=== PATIENT | female | born 1960 | race Caucasian/White ===

== ENCOUNTER 2017-08-31 11:54 | Observation (INO) | payer MEDICARE, MEDICAID ==
[~2017-08-31 11:54] MED LIST: ISOVUE-370 76%-LOCM 1 ML ONE
[2017-08-31 12:39] LABS: #Lymphocytes 1.8 thou/uL (1.20-3.40); #Monocytes 0.7 thou/uL (0.11-0.59); #Neutrophils 3.8 thou/uL (1.40-6.50); %Basophils 0.3 % (0.0-1.0); %Eosinophils 0.6 % (0.0-10.0); %Lymphocytes 28.3 % (21.0-51.0); %Monocytes 10.8 % (0.0-10.0); Hematocrit 43.2 % (36.0-47.0); Mean Platelet Volume 7.8 fL (7.4-10.4); Red Blood Cell (RBC) Count 4.66 mill/uL (4.20-5.40); White Blood Cell (WBC) Count 6.3 thou/uL (4.8-10.8)
[2017-08-31 12:51] LABS: Lactic Acid - Sepsis 3.6 mmol/L (0.5-2.2)
[2017-08-31 12:56] LABS: ALT (SGPT) 35 U/L (8-55); AST (SGOT) 34 U/L (5-34); Alkaline Phosphatase 189 U/L (40-150); Anion Gap 14 mmol/L (10-20); BUN (Urea Nitrogen) 20 mg/dL (9.8-20.1); Bilirubin, Total 0.4 mg/dL (0.2-1.2); Calc. Creatinine Clearance 0 mL/min (70-130); Calcium 10.3 mg/dL (7.8-10.44); Carbon Dioxide 23 mmol/L (22-29); Chloride 108 mmol/L (98-107); Estimated GFR-MDRD 41; Globulin 3.4 g/dL (2.4-3.5); Lipase 24 U/L (8-78); Protein, Total 7.8 g/dL (6.0-8.3)
[2017-08-31] MEDS ORDERED: diphenhydrAMINE HCl 50 MG/ML 1 ML VIAL ONE (13:17)
[2017-08-31] MEDS ORDERED: Metoclopramide HCl 10 MG/2 ML VIAL ONE (13:17)
[2017-08-31 13:49] LABS: Bilirubin Negative (Negative); Blood, Urine Negative (Negative); Glucose, Urine (Dipstick) Negative (Negative); Ketone, Urine Negative (Negative); Nitrite Negative (Negative); Protein, Urine (Dipstick) Negative (Neg-Trace); Urobilinogen 0.2 mg/dL (0.2-1.0)
[2017-08-31 13:51] LABS: Bacteria/HPF None Seen HPF (None Seen); Hyaline Casts/LPF 0-3 HYALINE CAST LPF (0-3 Hyaline); RBC/HPF 0-3 HPF (0-3); WBC/HPF 0-3 HPF (0-3)
[2017-08-31 13:56] LABS: Troponin I 0.016 ng/mL (< 0.028)
--- NOTE | 2017-08-31 14:18 | CT ---
CT ABDOMEN AND PELVIS WITH IV CONTRAST: History Abdomen pain. FINDINGS: The lung bases are clear. Small hiatal hernia is apparent. The gallbladder is surgically absent. The spleen, kidneys, adrenal glands, and pancreas are within normal limits. Prominent calcification s apparent throughout the arterial structures. Urinary bladder is decompressed. There are degenera tive changes throughout the lumbar spine. IMPRESSION: 1. No acute abnormalities are demonstrated to explain abdomen pain. 2. Hiatal hernia. 3. Status post cholecystectomy. 4. Atherosclerosis. POS: [facility]
--- NOTE | 2017-08-31 14:21 | RAD ---
CHEST 1 VIEW: History Dyspnea. COMPARISON: 04/23/17. FINDINGS: Cardiac silhouette and pulmonary vasculature are unremarkable. Mediastinum is midline. There is no confluent airspace consolidation or evidence of pneumothorax. Postoperative changes of the cervica l spine are evident. IMPRESSION: No active cardiopulmonary abnormalities are demonstrated. POS: [facility]
[2017-08-31] MEDS ORDERED: Promethazine HCl 12.5 MG in Sodium Chloride 0.9% 50 ML IVPB SCH (15:30)
[2017-08-31] MEDS ORDERED: Acetaminophen 325 MG TAB PO PRN (16:49)
[2017-08-31] MEDS ORDERED: Ondansetron HCl/PF 4 MG/2 ML Vial IVP PRN (16:49)
[2017-08-31] MEDS ORDERED: Ondansetron ODT 4 MG TAB SL PRN (16:49)
[2017-08-31 16:57] VITALS: BMI 51.0
[2017-08-31] MEDS: Sodium Chloride 0.9% 1,000 ML IV SCH ×2 (17:30→20:31)
--- NOTE | 2017-08-31 18:34 | HP ---
DATE OF ADMISSION: 08/31/2017 CHIEF COMPLAINT: Persistent nausea, vomiting, and diarrhea for 1 week. HISTORY OF PRESENT ILLNESS: The patient is a 57-year-old female with past medical history significa nt for hypertension, CAD, status post AK, hyperlipidemia, anxiety, depression, arthritis, and sleep apnea. Patient has been having symptoms for a week. She has been having nausea, vomiting, and diar mauro. The patient denies any blood in her stools or blood in her vomitus. She denies any fever. S he has been unable to keep anything down. Patient became very dehydrated and weak and decided to co me to the ER. The patient also has some right upper quadrant discomfort associated with this. She has already had a cholecystectomy. Patient denies any history of peptic ulcer disease, gastritis, o r colitis. She had an EGD and colonoscopy about 2 years ago, which was apparently normal as per leah fam, I do not have the records. PAST MEDICAL HISTORY: 1. Hypertension. 2. Coronary artery disease. 3. Status post myocardial infarction. 4. Hyperlipidemia. 5. Anxiety. 6. Depression. 7. Arthritis. 8. Sleep apnea. PAST SURGICAL HISTORY: Patient has had multiple knee surgeries, , cholecystectomy, appende ctomy, neck surgery, and hernia repair. HOME MEDICATIONS: List is reviewed. FAMILY HISTORY: Noncontributory to the present admission. SOCIAL HISTORY: The patient is . She lives alone. She smokes half a pack a day for the pa st 30 years. Denies alcohol or substance abuse. REVIEW OF SYSTEMS: Constitutional: No history of weight loss, weight gain, night sweats, or fever. HEENT: No visual disturbance, hearing problems, difficulty in chewing or swallowing. No headache . Gastrointestinal: As per history of present illness. No black stools or blood in stools. No hi story of colitis or diverticulitis. Cardiac: No chest pain, palpitations, syncope, or edema. Resp iratory: No cough, wheezing, asthma, or hemoptysis. Genitourinary: No dysuria, burning, frequency , hematuria, or flank pain. Neurological: No dizziness, visual disturbance, speech disturbances, c hange in mental status, seizures, tingling, numbness, or weakness. Skin: No petechia or rashes. H ematological: No history of cancer. No history of easy bruising or bleeding. PHYSICAL EXAMINATION: GENERAL: This is a pleasant middle-aged female, in no apparent distress. Patient is morbidly obese . VITAL SIGNS: Her blood pressure is 118/56, temperature is 98.3, pulse rate 52, respirations 20, O2 sat 98%. HEENT: Normocephalic, atraumatic. Pupils are equally reactive to light and accommodation. No pall or or icterus. Oral cavity shows tongue is central. No central cyanosis or pallor. NECK: Supple. No thyromegaly, no JVD, no bruit. CHEST: Bilateral clear to auscultation. CARDIOVASCULAR: PMI is in the left fifth intercostal space. S1, S2 normal. No S3, S4, or murmur. ABDOMEN: Patient is obese. The patient has mild right upper abdominal tenderness. No guarding, no rebound. No free fluid, no masses. No organomegaly. EXTREMITIES: No clubbing, cyanosis, or edema. NEUROLOGIC: Awake, alert, and oriented x3. LABORATORY DATA: White count is 6.3, hemoglobin 15.5, platelet count is 246, neutrophils are 60%. Sodium 141, potassium 4.4, chloride 108, CO2 of 23, anion gap 14, BUN 20, creatinine 1.34, glucose 1 17. Lactic acid 3.6, calcium 10.3, total bilirubin 0.4, AST 34, ALT 35, alkaline phosphatase is 189 . BNP is 45.5, albumin is 4.4, globulin 3.4, lipase 24. CT scan of the abdomen done in the ER show s cholecystectomy. No acute abnormalities. ASSESSMENT AND PLAN: 1. Nausea, vomiting, diarrhea, likely secondary to acute gastroenteritis, most likely viral in etio logy. 2. Dehydration. 3. Lactic acidosis secondary to systemic inflammatory response syndrome present on admission. The patient does not have sepsis. 4. Morbid obesity. 5. Hypertension. 6. Coronary artery disease. 7. Status post myocardial infarction. 8. Acute renal failure/chronic kidney disease. At this present time, the patient will be admitted to the medical floor. We will start her on IV fl uids. We will put on clear liquids. We will put her on Zofran p.r.n. for nausea and vomiting. We will put on Protonix for GI and Lovenox for stress ulcer prophylaxis. We will monitor her symptoms closely. CT scan is normal. There does not appear to be any acute surgical emergency. We will get GI consultation if needed. Further recommendation will be made depending on course of clinical gunjan nts. Discussed with the patient at bedside. All questions were answered.
[2017-08-31] MEDS ORDERED: Lorazepam 1 MG TAB PO PRN (19:29)
[2017-08-31] MEDS ORDERED: Senokot 8.6 MG TAB PO PRN (19:29)
[2017-08-31] MEDS ORDERED: cloNIDine HCl 0.1 MG TAB PO PRN (19:29)
[2017-08-31] MEDS ORDERED: Diabetic Tussin 200 MG/10 ML UDCUP PO PRN (19:29)
[2017-08-31] MEDS ORDERED: Nitroglycerin 0.4 MG TAB (25 Tab Bottle) SL PRN (19:29)
[2017-08-31] MEDS ORDERED: Benzonatate 100 MG CAP PO PRN (19:29)
[2017-08-31] MEDS ORDERED: traMADol HCl 50 MG TAB PO PRN (19:29)
[2017-08-31] MEDS ORDERED: Loratadine 10 MG TAB PO PRN (19:29)
[2017-08-31] MEDS ORDERED: Bisacodyl 5 MG TAB PO PRN (19:29)
[2017-08-31] MEDS: ALPRAZolam 0.5 MG TAB PO SCH (20:26)
[2017-08-31] MEDS ORDERED: Lovastatin 20 MG TAB PO SCH (21:00)
[2017-08-31] MEDS ORDERED: Topiramate 100 MG TAB PO SCH (21:00)
[2017-08-31] MEDS ORDERED: Mirtazapine 30 MG TAB PO SCH (21:00)
[2017-08-31] MEDS ORDERED: (Vortioxetine Hydrobromide [Trintellix] 10 MG) PO SCH (21:00)
[2017-09-01 04:38] LABS: Anion Gap 8 mmol/L (10-20); BUN (Urea Nitrogen) 16 mg/dL (9.8-20.1); Calc. Creatinine Clearance 115 mL/min (70-130); Calcium 8.8 mg/dL (7.8-10.44); Carbon Dioxide 24 mmol/L (22-29); Chloride 114 mmol/L (98-107); Estimated GFR-MDRD 56
[2017-09-01 04:43] LABS: Hematocrit 35.8 % (36.0-47.0); Mean Platelet Volume 7.9 fL (7.4-10.4); Neutrophil 36 % (42-75); Red Blood Cell (RBC) Count 3.83 mill/uL (4.20-5.40); White Blood Cell (WBC) Count 3.9 thou/uL (4.8-10.8)
[2017-09-01] MEDS ORDERED: Lovastatin 20 MG TAB PO SCH (07:30)
[2017-09-01] MEDS ORDERED: Aspirin 81 mg Enteric Coated Tablet PO SCH (09:00)
[2017-09-01] MEDS ORDERED: FLU VACC QS2017-18 36 mo. & older 0.5 ML SYRINGE IM ONE (09:00)
[2017-09-01] MEDS: ALPRAZolam 0.5 MG TAB PO SCH (09:23)
[2017-09-01 11:21] VITALS: BP 124/60; TEMP 97.6
--- NOTE | 2017-09-01 16:01 | PDOC.EVN ---
Event Note - Event Note Event Note: d/c summary dictated #[id number]
--- NOTE | 2017-09-01 22:50 | DIS ---
DATE OF ADMISSION: 08/31/2017 DATE OF DISCHARGE: 09/01/2017 DISCHARGE DIAGNOSES: 1. Resolved acute gastroenteritis. 2. Resolved dehydration. 3. Resolved lactic acidosis. 4. Morbid obesity. 5. Hypertension. 6. Coronary artery disease. 7. Mild thrombocytopenia. 8. Acute renal failure/chronic kidney disease, improved. Patient was seen and examined on discharge date. MEDICATIONS: Continue with current home medications. No new medications prescribed. CONSULTATION: None. HOSPITAL COURSE: The patient was admitted to the emergency room with 1-week history of nausea, vomi ting, and diarrhea. Patient was found to have dehydration, acute renal failure. Patient had lactic acidosis, which was mild. Patient was started on IV hydration. Cultures were drawn, which were ne gative. Stool studies were negative. Patient was initially put on clear liquids, which was advance d to a regular diet. CT of the abdomen and pelvis was normal. Patient did well and her symptoms re solved. She started tolerating p.o. diet. She was discharged home in stable condition. Total discharge time including face to face encounter more than 35 minutes.
== END 2017-09-01 13:50 | disposition home or self-care (01) ==
LOC: ERS 11:54 → 2SW 16:54
PROVIDERS: ADMIT Internal Medicine; ATTEND Internal Medicine
DX: K52.9 Noninfective gastroenteritis and colitis, unspecified (principal); E86.0 Dehydration; E87.2 Acidosis; E66.01 Morbid (severe) obesity due to excess calories; I25.10 Atherosclerotic heart disease of native coronary artery without angina pectoris; I12.9 Hypertensive chronic kidney disease with stage 1 through stage 4 chronic kidney disease, or unspecified chronic kidney disease; N18.9 Chronic kidney disease, unspecified; N17.9 Acute kidney failure, unspecified; I25.2 Old myocardial infarction; E78.5 Hyperlipidemia, unspecified; F32.9 Major depressive disorder, single episode, unspecified; F41.9 Anxiety disorder, unspecified; M19.90 Unspecified osteoarthritis, unspecified site; F17.210 Nicotine dependence, cigarettes, uncomplicated; G47.30 Sleep apnea, unspecified; Z68.43 Body mass index [BMI] 50.0-59.9, adult; Z79.82 Long term (current) use of aspirin; Z79.899 Other long term (current) drug therapy; Z90.49 Acquired absence of other specified parts of digestive tract
CPT/HCPCS: 71010; 74177; 80048; 80053; 82550; 82553; 83605; 83690; 83880; 84484; 85025 ×2; 87015; 87045; 87046; 87086; 87324; 87328; 87329; 87449 ×2; 87899 ×2; 93005; 94640; 96361 ×3; 96365; 96367; 96375; 99285; G0008; G0378; Q2036; 36415; 81003; 81015; 90471; 90682; J1200; J2550; J2765; J7050; J7620; Q0162

== ENCOUNTER 2018-01-25 11:28 | Emergency (ER) | payer MEDICARE, MEDICAID ==
[2018-01-25] MEDS ORDERED: Ketorolac Tromethamine 30 MG/ML VIAL ONE (12:16)
== END 2018-01-25 12:45 | disposition home or self-care (01) ==
LOC: SCSER 11:28
DX: S40.011A Contusion of right shoulder, initial encounter (principal); K21.9 Gastro-esophageal reflux disease without esophagitis; E66.9 Obesity, unspecified; I25.10 Atherosclerotic heart disease of native coronary artery without angina pectoris; E78.5 Hyperlipidemia, unspecified; I10 Essential (primary) hypertension; F41.9 Anxiety disorder, unspecified; F32.9 Major depressive disorder, single episode, unspecified; W01.0XXA Fall on same level from slipping, tripping and stumbling without subsequent striking against object, initial encounter
CPT/HCPCS: 96372; J1885

== ENCOUNTER 2018-02-06 12:00 | Outpatient (CLI) | payer MEDICARE, MEDICAID ==
--- NOTE | 2018-02-06 16:08 | CT ---
CT ARTERIOGRAM CHEST WITH IV CONTRAST AND 3D MIP IMAGING CT ARTERIOGRAM ABDOMEN AND PELVIS WITH BILATERAL LOWER EXTREMITY RUNOFF WITH IV CONTRAST AND 3D MIP I JYOTI 02/06/18 HISTORY: vascular disease. Claudication. Chest pain. There is normal branching of the great vessels from the aortic arch with mild calcification. Coronary artery calcification. Abdominal aorta is of normal caliber. Scattered arterial calcifications of the abdomen and pelvis. Vi sceral arteries are patent. Cross-sectional imaging outruns the contrast bolus within the legs. No ar eas of significant stenosis are apparent, although the small vessels below the knees are not well vis ualized. Right knee prosthesis obscures the right popliteal artery. Gallbladder is surgically absent. Small hiatal hernia. Degenerative changes lumbar spine. Scattered diverticula of the colon. IMPRESSION: Atherosclerosis, including the coronary arteries. No significant arterial stenosis is apparent. POS: [facility]
--- NOTE | 2018-02-06 16:35 | MRI ---
RIGHT SHOULDER MRI WITHOUT IV CONTRAST 02/06/18 HISTORY: 57-year-old female with history of right shoulder pain following injury from a fall several weeks ago . Loss of range of motion. AC joint arthrosis changes are noted with some undersurface spurring of the lateral acromion. There i s a large tear involving the rotator cuff including retraction of the supraspinatus, conjoined, and i nfraspinatus tendons back to a level between the humeral dome and the glenoid. There is some associat ed delamination of the infraspinatus. There is also thickening and abnormal signal in the subscapular is tendon with associated undersurface and delaminating tear. The intra-articular portion of the diane ps tendon is poorly defined but it does appear to be intact. The supraspinatus and infraspinatus musc les demonstrate at least moderate muscle volume loss and some fatty replacement changes. There is cheryl e minimal nonspecific fluid density surrounding the teres minor muscle and myotendinous region. Somew hat blunted poorly defined labrum without evidence for an acute labral tear. IMPRESSION: Fairly extensive rotator cuff tears with associated retraction. At least moderate muscle volume loss and fatty replacement changes of the supraspinatus and infraspinatus muscles. POS: [facility]
== END 2018-02-06 12:01 | disposition home or self-care (01) ==
LOC: SCSMRI 12:00
PROVIDERS: ATTEND Family Medicine
DX: M75.21 Bicipital tendinitis, right shoulder (principal); I70.213 Atherosclerosis of native arteries of extremities with intermittent claudication, bilateral legs; M75.101 Unspecified rotator cuff tear or rupture of right shoulder, not specified as traumatic; I25.10 Atherosclerotic heart disease of native coronary artery without angina pectoris
CPT/HCPCS: 75635; 82565

== ENCOUNTER 2018-03-07 12:21 | Inpatient (IN) | payer MEDICARE, MEDICAID ==
[2018-03-07] MEDS ORDERED: Ondansetron PF 4 MG/2 ML Vial ONE (12:36)
[2018-03-07] MEDS ORDERED: Promethazine HCl 25 MG/ML VIAL ONE (12:59)
[2018-03-07 13:01] LABS: PTT 26.4 SEC (22.9-36.1); Prothrombin Time 13.2 SEC (12.0-14.7)
[2018-03-07 13:10] LABS: ALT (SGPT) 15 U/L (8-55); AST (SGOT) 14 U/L (5-34); Albumin 3.8 g/dL (3.5-5.0); Alkaline Phosphatase 142 U/L (40-150); Anion Gap 14 mmol/L (10-20); BUN (Urea Nitrogen) 17 mg/dL (9.8-20.1); Bilirubin, Total 0.4 mg/dL (0.2-1.2); Calc. Creatinine Clearance 0 mL/min (70-130); Calcium 9.5 mg/dL (7.8-10.44); Carbon Dioxide 22 mmol/L (22-29); Chloride 106 mmol/L (98-107); Estimated GFR-MDRD 51; Globulin 3.1 g/dL (2.4-3.5); Glucose 126 mg/dL (70-105); Lipase 9 U/L (8-78); Potassium 3.9 mmol/L (3.5-5.1); Protein, Total 6.9 g/dL (6.0-8.3); Sodium 138 mmol/L (136-145)
[2018-03-07 13:43] LABS: #Lymphocytes 1.2 thou/uL (1.20-3.40); #Monocytes 0.9 thou/uL (0.11-0.59); #Neutrophils 9.4 thou/uL (1.40-6.50); %Basophils 0.3 % (0.0-1.0); %Eosinophils 0.1 % (0.0-10.0); %Lymphocytes 10.3 % (21.0-51.0); %Monocytes 7.9 % (0.0-10.0); %Neutrophils 81.5 % (42.0-75.0); Hemoglobin 15.2 g/dL (12.0-16.0); Mean Corpuscular Hemoglobin 31.8 pg (27.0-31.0); Mean Corpuscular Volume 90.6 fl (81.0-99.0); Mean Platelet Volume 9.3 fL (7.4-10.4); Platelet Count 181 thou/uL (130-400); RBC Distribution Width 11.3 % (11.5-14.5); White Blood Cell (WBC) Count 11.5 thou/uL (4.8-10.8)
[2018-03-07] MEDS ORDERED: Fentanyl 100 MCG/2 ML VIAL ONE (14:02)
[2018-03-07 14:36] LABS: Bilirubin Moderate (Negative); Blood, Urine Moderate (Negative); Clarity Cloudy (Clear); Glucose, Urine (Dipstick) Negative (Negative); Leukocyte Negative (Negative); Nitrite Negative (Negative); Protein, Urine (Dipstick) 30 mg/dL (Neg-Trace); Urobilinogen 0.2 mg/dL (0.2-1.0); pH, Urine 5.5 (5.0-9.0)
[2018-03-07 14:37] LABS: Specific Gravity, Urine 1.023 (1.002-1.036)
[2018-03-07 14:41] LABS: RBC/HPF 0-3 HPF (0-3); WBC/HPF 0-3 HPF (0-3)
[2018-03-07 14:42] LABS: Bacteria/HPF 1+ HPF (None Seen); Hyaline Casts/LPF 0-3 HYALINE CAST LPF (0-3 Hyaline)
[2018-03-07 14:44] LABS: Crystals/HPF RARE CA OXALATE HPF (Negative)
[2018-03-07] MEDS ORDERED: Iopamidol 370 76% 100 ML VIAL ONE (16:27)
--- NOTE | 2018-03-07 16:58 | CT ---
CT OF THE ABDOMEN AND PELVIS WITH IV CONTRAST: 03/07/18 INDICATION: Right sided abdominal pain with nausea, vomiting and diarrhea. COMPARISON: Prior exam dated 08/31/17. FINDINGS: There is prominent wall thickening involving the sigmoid colon, descending colon, transverse colon, a nd ascending colon, consistent with long segment colitis. The appendix is normal appearing. Terminal ileum is normal appearing. No drainable fluid collection is evident. There is fatty infiltration of the liver. The gallbladder is surgically absent. The adrenal glands, p ancreas and spleen are normal appearing. There are small renal cysts bilaterally. There are moderate calcifications involving the abdominal and pelvic vasculature. No definite acute osseous abnormality is evident. IMPRESSION: 1. Long segment colitis. Findings may be infectious or inflammatory in etiology. 2. Fatty liver. 3. Cholecystectomy. 4. Renal hypodensities, too small to characterize but statistically likely reflective of cysts. POS: [facility]
[2018-03-07] MEDS ORDERED: Ciprofloxacin Lactate/D5W 400 mg/200 ml Premix ONE (17:28)
[2018-03-07] MEDS ORDERED: metroNIDAZOLE 500 MG/100 ML BAG ONE (18:21)
[2018-03-07 19:05] VITALS: BMI 48.6
[2018-03-07] MEDS ORDERED: Acetaminophen 325 MG TAB PO PRN (19:06)
[2018-03-07] MEDS ORDERED: Ondansetron PF 4 MG/2 ML Vial IVP PRN (19:06)
[2018-03-07] MEDS ORDERED: Promethazine HCl 12.5 MG in Sodium Chloride 0.9% 50 ML IVPB PRN (19:06)
[2018-03-07] MEDS ORDERED: Ondansetron ODT 4 MG TAB SL PRN (19:06)
[2018-03-07] MEDS ORDERED: Sodium Chloride 0.9% 1,000 ML IV SCH (19:15)
[2018-03-07] MEDS: Morphine 4 MG/ML VIAL SLOW IVP PRN (20:25)
--- NOTE | 2018-03-07 20:43 | PDOC.FPRHP ---
- History of Present Illness Chief Complaint: diarrhea History of Present Illness: diarrhea for 4 days that became bloody about 2 days ago. PMH includes CAD, PVD, HLD, HTN, COPD, CKD3, and PTSD. pain became significant today and prompted her get evaluated. it was very crampy pain. 6-8/10 pain here at the hospital. she has been throwing up too, with a couple episodes of blood-tinged emesis. she tried taking some fluids this morning but not since. She has never had this before. She has not had a period since age 41. no recent travel. no hx of inflammatory bowel disease. She visited a [place] last week. ED Course: Flagyl, Morhpine, cipro, NS x 1L, fentynl, phenergan, zofran. - Allergies/Adverse Reactions Allergies Allergy/AdvReac Type Severity Reaction Status Date / Time No Known Allergies Allergy Verified 08/31/17 16:59 - Home Medications Medication Instructions Recorded Confirmed Type Lisinopril [Zestril] 10 mg PO DAILY 03/05/14 03/07/18 History Lovastatin [Mevacor] 40 mg PO HS 03/05/14 03/07/18 History ALPRAZolam [Xanax] 0.5 mg PO BID 12/12/15 03/07/18 History Esomeprazole Magnesium [NexIUM] 40 mg PO HS 12/12/15 03/07/18 History Potassium Chloride [Klor-Con 10] 10 meq PO DAILY 12/12/15 03/07/18 History Mirtazapine 30 mg PO HS 08/31/17 03/07/18 History Topiramate 100 mg PO HS 08/31/17 03/07/18 History Umeclidinium/Vilanterol [Anoro 1 box INH DAILY 08/31/17 03/07/18 History Ellipta 62.5/25 MCG INH] Aspirin 81 mg PO DAILY 03/07/18 03/07/18 History Gabapentin 1.5 tab PO TID 03/07/18 03/07/18 History Metoprolol Glass/Hydrochlorothiaz 1 each PO HS 03/07/18 03/07/18 History [Metoprolol ER-Hctz 25-12.5 mg] Omeprazole 40 mg PO DAILY 03/07/18 03/07/18 History Vortioxetine Hydrobromide 10 mg PO DAILY 03/07/18 03/07/18 History [Brintellix] traZODone HCl [Trazodone HCl] 50 mg PO HS 03/07/18 03/07/18 History - History PMHx:Obesity, HTN, COPD, GERD, Hypercholesterolemia, chroniic knee arthritis, CAD, vulvar dysplasia, KEYONNA, psychiatric conditions. PSHx: Knee surgery x3, Csection 1994, hernia repair in 1994, surgeries for vulvar dysplasia FHx: hx of gall stones. sister had similar symptoms and was diagnosed with IBS. Social: 40 year 1ppd smoker, quit 2 weeks ago, no alcohol, no drugs - Review of Systems General: reports: fever/chills, weight/appetite/sleep changes (lost 20 lbs over over 6 months.) Eyes: denies: eye pain, vision changes ENT: denies: nasal congestion, rhinorrhea Respiratory: reports: cough Cardiovascular: denies: chest pain, palpitation Gastrointestinal: reports: nausea, vomiting, diarrhea, abdominal pain, GI bleeding. denies: constipation Genitourinary: denies: incontinence, dysuria, polyuria, discharge Skin: denies: rashes, lesions, jaundice, itching Musculoskeletal: reports: pain, tenderness, arthritis/arthralgias. denies: stiffness Neurological: denies: numbness, syncope, seizure, weakness Psychological: reports: anxiety, depression - Vital signs BP: 126/49 HR: 69 RR: 18 Tmax: 98.9 Pox: 95% on ra Wt: 113kg - Physical Exam Constitutional: NAD, awake, alert and oriented HEENT: normocephalic and atraumatic, PERRLA, EOMI, MMM Neck: supple, FROM Heart: RRR, normal S1/S2, no murmurs/rubs/gallops Lungs: CTAB, no respiratory distress, good air movement Abdomen: soft, bowel sounds present, no masses/distention -Abdomen: tender to palpation throughout, no rebound, no guarding Musculoskeletal: normal structure, ROM grossly normal Neurological: no focal deficit, CN II-XII intact Skin: no rash/lesions, capillary refill <2 seconds Heme/Lymphatic: no unusual bruising or bleeding, no purpura Psychiatric: normal mood and affect FMR H&P: Results - Labs Result Diagrams: 03/08/18 04:29 03/08/18 04:29 Lab results: WBC 11.5 thou/uL (4.8-10.8) H 03/07/18 12:48 Hgb 15.2 g/dL (12.0-16.0) 03/07/18 12:48 Hct 43.5 % (36.0-47.0) 03/07/18 12:48 MCV 90.6 fl (81.0-99.0) 03/07/18 12:48 Plt Count 181 thou/uL (130-400) 03/07/18 12:48 Neutrophils % 81.5 % (42.0-75.0) H 03/07/18 12:48 ESR Westergren 44 mm/hr (0-20) H 03/07/18 12:48 Sodium 138 mmol/L (136-145) 03/07/18 12:48 Potassium 3.9 mmol/L (3.5-5.1) 03/07/18 12:48 Chloride 106 mmol/L (98-107) 03/07/18 12:48 Carbon Dioxide 22 mmol/L (22-29) 03/07/18 12:48 BUN 17 mg/dL (9.8-20.1) 03/07/18 12:48 Creatinine 1.11 mg/dL (0.6-1.1) H 03/07/18 12:48 Glucose 126 mg/dL (70-105) H 03/07/18 12:48 Calcium 9.5 mg/dL (7.8-10.44) 03/07/18 12:48 Total Bilirubin 0.4 mg/dL (0.2-1.2) 03/07/18 12:48 AST 14 U/L (5-34) 03/07/18 12:48 ALT 15 U/L (8-55) 03/07/18 12:48 Alkaline Phosphatase 142 U/L (40-150) 03/07/18 12:48 C-Reactive Protein 14.19 mg/dL (= or < 0.5) H 03/07/18 12:48 Serum Total Protein 6.9 g/dL (6.0-8.3) 03/07/18 12:48 Albumin 3.8 g/dL (3.5-5.0) 03/07/18 12:48 Lipase 9 U/L (8-78) 03/07/18 12:48 Urine Ketones 15 mg/dL (Negative) H 03/07/18 14:15 Urine Blood Moderate (Negative) H 03/07/18 14:15 Urine Nitrite Negative (Negative) 03/07/18 14:15 Ur Leukocyte Esterase Negative (Negative) 03/07/18 14:15 Urine RBC 0-3 HPF (0-3) 03/07/18 14:15 Urine WBC 0-3 HPF (0-3) 03/07/18 14:15 Ur Squamous Epith Cells 4-6 HPF (0-3) H 03/07/18 14:15 Urine Bacteria 1+ HPF (None Seen) H 03/07/18 14:15 FMR H&P: A/P - Problem List (1) HTN (hypertension) Current Visit: Yes Status: Chronic Code(s): I10 - ESSENTIAL (PRIMARY) HYPERTENSION Qualifiers: Hypertension type: essential hypertension Qualified Code(s): I10 - Essential (primary) hypertension (2) KEYONNA and COPD overlap syndrome Current Visit: Yes Status: Chronic Code(s): G47.33 - OBSTRUCTIVE SLEEP APNEA (ADULT) (PEDIATRIC); J44.9 - CHRONIC OBSTRUCTIVE PULMONARY DISEASE, UNSPECIFIED (3) CKD (chronic kidney disease) stage 3, GFR 30-59 ml/min Current Visit: Yes Status: Acute Code(s): N18.3 - CHRONIC KIDNEY DISEASE, STAGE 3 (MODERATE) (4) MDD (major depressive disorder) Current Visit: Yes Status: Chronic Code(s): F32.9 - MAJOR DEPRESSIVE DISORDER, SINGLE EPISODE, UNSPECIFIED Qualifiers: Major depression episode severity: unspecified (5) PTSD (post-traumatic stress disorder) Current Visit: Yes Status: Acute Code(s): F43.10 - POST-TRAUMATIC STRESS DISORDER, UNSPECIFIED (6) HLD (hyperlipidemia) Current Visit: Yes Status: Chronic Code(s): E78.5 - HYPERLIPIDEMIA, UNSPECIFIED Qualifiers: Hyperlipidemia type: unspecified Qualified Code(s): E78.5 - Hyperlipidemia , unspecified - Plan # Bloody Diarrhea - flagyl, cipro - CT abd shows large segment of colitis - occult blood + - bentyl - stool culture, O&P, lactoferrin, c diff, norovirus, shiga toxin pending - blood cxs - no travel history, visited a [facility] 1 week ago, no recent hospitalization/antibiotics, no history IBD, sister w/ IBS, ate egg salad sandwich Sat. - vasculopathic (PVD, CAD), ischemia unlikely at this time based on clinical exam, CT - worked up for diarrhea w/ negative stool studies in august 2017 - consider GI consult in AM pending studies # HTN - home meds # HLD - home meds # CKD 3 - Cr 1.11, 1.02 on august 2017 # Migraine - home topamax # Hx of CAD, PVD - held home ASA 2/2 bleeding # Anxiety/depression - home brillenta, benzo Diet: clear liquids Fluids: 150 ml/hr NS PPx: SCDs Dispo: 2-3 days FMR H&P: Upper Level - Pertinent history 57 yo has had 4 days of bloody diarrhea, abdominal pain, NV, malaise, and poor oral intake. no previous episodes. sister has IBS. she has not been taking over the counter medications for this pain. Symptoms got worse today. no recent travel. no blood in emesis. - Pertinent findings Gen: obese/WN female in no acute distress, uncomfortable and queasy appearing HEENT: NC/AT, MIGEL,EOMI, MMM Resp: CTA, normal work of breathing CV: RRR, normal S1, S2, no murmur ABD: Soft but diffuse mild tenderness, nondistended Extremities: no edema, pulses 2+ Psych: calm, normal affect and mood Neuro: CN intact, normal strength and sensation Pos fecal blood - Plan Date/Time: 03/07/182038 INeeraj, have evaluated this patient and agree with findings/plan as outlined by legal intern resident. Pertinent changes/additions are listed here. 1. Infectious colitis- diagnosed with bloody diarrhea with colitis seen on CT. s/p cipro and flagyl. pending fecal lactorferrin, EHEC testing, Cdiff. will continue IV fluids. ESR and CRP elevated. May eventually need colonoscopy to confirm not inflammatory 2. COPD- continue home inhaler 3. CAD- contihe statin 4. KEYONNA- will have bring in CPAP from home 5. depression- continue SNRI 6. anxiety- continue prn benzodiazpine 7. obesity-will provide counseling DVT ppx- SCDs Attending Addendum - Attending Addendum Date/Time: 03/08/18 [id number] I personally evaluated the patient and discussed the management with Dr. Melendez and Dr. Desir. I agree with the History, Examination, Assessment and Plan documented above with any addition or exceptions noted below. Mrs Ahuja is a 57 y/o female who presented to [facility] for a 4 day hx of diarrhea that had become bloody stools. She endorses cramps, 2 episodes of nausea/vomiting, but no fever. Since admission, IV Fluids and medications she feels better but still has intermittent cramps before passing bloody stool. No known infectious exposure, sick contacts, or recent travel. PMHx: CAD, PVD, HLD, HTN, COPD, CKD3, and PTSD. Had a colonoscopy at [facility] 2013 that she states was normal. ED Course: Flagyl, Morhpine, cipro, NS x 1L, fentynl, phenergan, zofran. Exam: Wt: 113 Kg, 126/49, P69, R18, T98.9, SaO2 95% on RA. Obese female in no acute distress. HEENT: No icterus, mm moist NecK: Supple no adenopathy Lungs: CTA Cor: RRR, No murmur Abdomen: protruberant, soft, no organomegaly or masses. Mild generalized tenderness without guarding or rebound. Ext: No C/E/C/Pallor CTAbdomen/pelvis - pancolitis A: Acute colitis, likely infectious P: Stool culture, O&P and special studies showed positive for Campylobacter. Continue Cipro, D/C Flagyl continue fluids, advance diet as tolerated. MD Ronit
[2018-03-07] MEDS ORDERED: Acetaminophen 500 MG TAB PO SCH (21:30)
[2018-03-07] MEDS: Sodium Chloride 0.9% 1,000 ML IV SCH (21:47)
[2018-03-07] MEDS ORDERED: Dicyclomine 20 MG TAB PO SCH (22:45)
[2018-03-07] MEDS ORDERED: ALPRAZolam 0.5 MG TAB PO SCH (23:00)
[2018-03-07] MEDS ORDERED: traZODone HCl 50 MG TAB PO SCH ×2 (23:00→23:45)
[2018-03-07] MEDS ORDERED: Lovastatin 20 MG TAB PO SCH (23:00)
[2018-03-07] MEDS ORDERED: Gabapentin 300 MG CAP PO SCH (23:00)
[2018-03-07 23:31] LABS: HIV (1/2) Antibody/Antigen Non-Reactive (NonReactive); HIV 1/2 INDEX 0.15 S/CO (<1.00)
[2018-03-08] MEDS: Sodium Chloride 0.9% 1,000 ML IV SCH ×2 (01:40→11:43)
[2018-03-08] MEDS ORDERED: metroNIDAZOLE 500 MG in Premix Bag 1 BAG IVPB SCH (02:00)
[2018-03-08 05:15] LABS: Anion Gap 10 mmol/L (10-20); BUN (Urea Nitrogen) 14 mg/dL (9.8-20.1); Calc. Creatinine Clearance 114 mL/min (70-130); Calcium 8.4 mg/dL (7.8-10.44); Carbon Dioxide 21 mmol/L (22-29); Chloride 109 mmol/L (98-107); Estimated GFR-MDRD 59; Glucose 120 mg/dL (70-105); Potassium 3.8 mmol/L (3.5-5.1); Sodium 136 mmol/L (136-145)
[2018-03-08 05:39] LABS: #Eosinphils 0.1 thou/uL (0.0-0.7); #Lymphocytes 1.3 thou/uL (1.20-3.40); #Monocytes 1.2 thou/uL (0.11-0.59); #Neutrophils 6.4 thou/uL (1.40-6.50); %Basophils 0.2 % (0.0-1.0); %Eosinophils 1.3 % (0.0-10.0); %Lymphocytes 14.2 % (21.0-51.0); %Monocytes 13.7 % (0.0-10.0); %Neutrophils 70.7 % (42.0-75.0); Hemoglobin 12.5 g/dL (12.0-16.0); Mean Corpuscular Hemoglobin 32.4 pg (27.0-31.0); Mean Corpuscular Volume 95.2 fl (81.0-99.0); Mean Platelet Volume 7.5 fL (7.4-10.4); Platelet Count 139 thou/uL (130-400); RBC Distribution Width 11.7 % (11.5-14.5); Red Blood Cell (RBC) Count 3.85 mill/uL (4.20-5.40); White Blood Cell (WBC) Count 9.1 thou/uL (4.8-10.8)
[2018-03-08] MEDS: Morphine 4 MG/ML VIAL SLOW IVP PRN ×2 (06:31→11:47)
--- NOTE | 2018-03-08 07:20 | PDOC.FM ---
- Subjective Subjective: Patient doing well this AM. No significant overnight events. Has had frequent BM 's that are janene blood overnight. Denies dizziness upon standing, chest pain, or shortness of breath. Does have an appetite currently. - Objective MAR Reviewed: Yes Vital Signs & Weight: Vital Signs (12 hours) Temp Pulse Resp BP BP Pulse Ox 03/08/18 03:44 170/70 H 03/07/18 20:42 98.9 F 74 18 117/70 92 L 03/07/18 20:00 98.9 F 74 18 92 L Weight Weight 113.081 kg Result Diagrams: 03/08/18 04:29 03/08/18 04:29 EKG Reviewed by me: No Radiology Reviewed by me: Yes <Ines Desir - Last Filed: 03/08/18 08:21> - Objective Vital Signs & Weight: Vital Signs (12 hours) Temp Pulse Resp BP BP Pulse Ox 03/08/18 12:00 97.6 F 67 18 104/51 L 98 03/08/18 08:40 97.8 F 66 18 114/67 98 03/08/18 04:00 98.2 F 62 18 117/70 97 03/08/18 03:44 170/70 H Weight Admit Weight 113.081 kg Weight 113.081 kg Result Diagrams: 03/08/18 04:29 03/08/18 04:29 <Yonathan Mcdowell - Last Filed: 03/08/18 15:38> Phys Exam - Physical Examination Constitutional: NAD HEENT: moist MMs, sclera anicteric Neck: supple Respiratory: clear to auscultation bilateral Cardiovascular: RRR, no significant murmur Gastrointestinal: soft mildly tender to palpation, worse in RLQ Musculoskeletal: no edema, pulses present Neurological: non-focal Psychiatric: normal affect Skin: no rash, cap refill <2 seconds <Ines Desir - Last Filed: 03/08/18 08:21> Dx/Plan (1) Colitis Code(s): K52.9 - NONINFECTIVE GASTROENTERITIS AND COLITIS, UNSPECIFIED Status : Acute (2) HLD (hyperlipidemia) Code(s): E78.5 - HYPERLIPIDEMIA, UNSPECIFIED Status: Chronic QualifierTitle: Hyperlipidemia type: unspecified Qualified Code(s): E78.5 - Hyperlipidemia, unspecified (3) HTN (hypertension) Code(s): I10 - ESSENTIAL (PRIMARY) HYPERTENSION Status: Chronic QualifierTitle: Hypertension type: essential hypertension Qualified Code( s): I10 - Essential (primary) hypertension (4) MDD (major depressive disorder) Code(s): F32.9 - MAJOR DEPRESSIVE DISORDER, SINGLE EPISODE, UNSPECIFIED Status : Chronic QualifierTitle: Major depression episode severity: unspecified (5) KEYONNA and COPD overlap syndrome Code(s): G47.33 - OBSTRUCTIVE SLEEP APNEA (ADULT) (PEDIATRIC); J44.9 - CHRONIC OBSTRUCTIVE PULMONARY DISEASE, UNSPECIFIED Status: Chronic - Plan Plan: Colitis, likely infectious - Continue cipro and flagyl - CT abd shows large segment of colitis - occult blood + - bentyl for abdominal cramping - stool culture, O&P, lactoferrin, c diff, norovirus, shiga toxin pending - blood cxs pending - no travel history, visited a senior care 1 week ago, no recent hospitalization/antibiotics, no history IBD, sister w/ IBS, ate egg salad sandwich Sat. - vasculopathic (PVD, CAD), ischemia unlikely at this time based on clinical exam, CT - worked up for diarrhea w/ negative stool studies in august 2017 - consider GI consult in AM pending studies HTN - home meds HLD - home meds CKD stage III - Cr 1.11, 1.02 on august 2017 Migraine headaches - home topamax Hx of CAD, PVD - held home ASA 2/2 bleeding MDD/Anxiety - home brillenta, benzo Diet: clear liquids, ADAT Fluids: 150 ml/hr NS PPx: SCDs Dispo: 2-3 days <Ines Desir - Last Filed: 03/08/18 08:21> (1) HTN (hypertension) Code(s): I10 - ESSENTIAL (PRIMARY) HYPERTENSION Status: Chronic Qualifiers: Hypertension type: essential hypertension Qualified Code(s): I10 - Essential (primary) hypertension (2) KEYONNA and COPD overlap syndrome Code(s): G47.33 - OBSTRUCTIVE SLEEP APNEA (ADULT) (PEDIATRIC); J44.9 - CHRONIC OBSTRUCTIVE PULMONARY DISEASE, UNSPECIFIED Status: Chronic (3) CKD (chronic kidney disease) stage 3, GFR 30-59 ml/min Code(s): N18.3 - CHRONIC KIDNEY DISEASE, STAGE 3 (MODERATE) Status: Acute (4) MDD (major depressive disorder) Code(s): F32.9 - MAJOR DEPRESSIVE DISORDER, SINGLE EPISODE, UNSPECIFIED Status : Chronic Qualifiers: Major depression episode severity: unspecified (5) PTSD (post-traumatic stress disorder) Code(s): F43.10 - POST-TRAUMATIC STRESS DISORDER, UNSPECIFIED Status: Acute (6) HLD (hyperlipidemia) Code(s): E78.5 - HYPERLIPIDEMIA, UNSPECIFIED Status: Chronic Qualifiers: Hyperlipidemia type: unspecified Qualified Code(s): E78.5 - Hyperlipidemia , unspecified <Yonathan Mcdowell - Last Filed: 03/08/18 15:38> Attending Addendum - Attending Addendum Date/Time: 03/08/18 1537 I personally evaluated the patient and discussed the management with Dr. Desir. I agree with the History, Examination, Assessment and Plan documented above with any addition or exceptions noted below. Doing better. Please see my full note addendum dated 03/08/18 to her admission H &P. MD Ronit <Yonathan Mcdowell - Last Filed: 03/08/18 15:38>
[2018-03-08] MEDS ORDERED: Vortioxetine Hydrobromide [Trintellix] 10 MG PO SCH (09:00)
[2018-03-08] MEDS: Dicyclomine 20 MG TAB PO SCH ×4 (09:10→20:16)
[2018-03-08] MEDS: ALPRAZolam 0.5 MG TAB PO SCH ×2 (09:10→20:16)
[2018-03-08] MEDS: Lisinopril 10 MG TAB PO SCH (09:10)
[2018-03-08] MEDS: Gabapentin 300 MG CAP PO SCH ×3 (09:10→20:16)
[2018-03-08] MEDS ORDERED: Dextrose 5 %-0.45 % NaCl 1,000 ML IV SCH (12:15)
[2018-03-08] MEDS: Dextrose 5 %-0.45 % NaCl 1,000 ML IV SCH ×2 (14:03→20:31)
[2018-03-08] MEDS: Ciprofloxacin 500 MG TAB PO SCH (20:16)
[2018-03-08] MEDS ORDERED: Mirtazapine 30 MG TAB PO SCH (21:00)
[2018-03-08] MEDS ORDERED: Hydrochlorothiazide 25 MG TAB PO SCH (21:00)
[2018-03-08] MEDS ORDERED: traZODone HCl 50 MG TAB PO SCH (21:00)
[2018-03-08] MEDS ORDERED: Topiramate 100 MG TAB PO SCH (21:00)
[2018-03-09] MEDS: Dextrose 5 %-0.45 % NaCl 1,000 ML IV SCH (05:19)
--- NOTE | 2018-03-09 06:42 | PDOC.FM ---
Addendum entered and electronically signed by Ines Desir DO 03/09/18 07 :38: Note indicates c diff positive. C diff negative, rather campylobacter jejuni positive. Being appropriately treated. Original Note: - Subjective Subjective: Patient doing well this AM. No significant overnight events. She was able to sleep throughout the night without a BM. Yesterday, her BM's became less bloody. Her abdominal pain has improved drastically. She still has some mild cramping when she is about to have a BM, but otherwise feels great. She is tolerating PO. Patient has a great support system. - Objective MAR Reviewed: Yes Vital Signs & Weight: Vital Signs (12 hours) Temp Pulse Resp BP BP Pulse Ox 03/09/18 03:58 98.2 F 66 16 124/67 98 03/08/18 23:54 99.1 F 61 20 115/39 L 95 03/08/18 20:00 98.4 F 67 18 128/56 L 96 Weight Admit Weight 113.081 kg Weight 113.081 kg I&O: 03/07/18 03/08/18 03/09/18 06:59 06:59 06:59 Intake Total 4380 Balance 4380 Result Diagrams: 03/08/18 04:29 03/08/18 04:29 EKG Reviewed by me: No Radiology Reviewed by me: No <Ines Desir - Last Filed: 03/09/18 07:35> - Objective Vital Signs & Weight: Vital Signs (12 hours) Temp Pulse Resp BP BP Pulse Ox 03/09/18 08:00 98.5 F 67 16 107/53 L 94 L 03/09/18 03:58 98.2 F 66 16 124/67 98 Weight Admit Weight 113.081 kg Weight 113.081 kg I&O: 03/08/18 03/09/18 03/10/18 06:59 06:59 06:59 Intake Total 4380 960 Balance 4380 960 Result Diagrams: 03/08/18 04:29 03/08/18 04:29 <Yonathan Mcdowell - Last Filed: 03/09/18 13:55> Phys Exam - Physical Examination Constitutional: NAD HEENT: moist MMs erythematous oropharynx, no exudates Neck: supple Respiratory: clear to auscultation bilateral Cardiovascular: RRR, no significant murmur Gastrointestinal: soft, non-tender, no distention, positive bowel sounds ( hyperactive) Musculoskeletal: no edema, pulses present Neurological: non-focal, moves all 4 limbs Psychiatric: normal affect Skin: no rash, cap refill <2 seconds <Ines Desir - Last Filed: 03/09/18 07:35> Dx/Plan (1) Colitis Code(s): K52.9 - NONINFECTIVE GASTROENTERITIS AND COLITIS, UNSPECIFIED Status : Acute (2) HLD (hyperlipidemia) Code(s): E78.5 - HYPERLIPIDEMIA, UNSPECIFIED Status: Chronic QualifierTitle: Hyperlipidemia type: unspecified Qualified Code(s): E78.5 - Hyperlipidemia, unspecified (3) HTN (hypertension) Code(s): I10 - ESSENTIAL (PRIMARY) HYPERTENSION Status: Chronic QualifierTitle: Hypertension type: essential hypertension Qualified Code( s): I10 - Essential (primary) hypertension (4) MDD (major depressive disorder) Code(s): F32.9 - MAJOR DEPRESSIVE DISORDER, SINGLE EPISODE, UNSPECIFIED Status : Chronic QualifierTitle: Major depression episode severity: unspecified (5) KEYONNA and COPD overlap syndrome Code(s): G47.33 - OBSTRUCTIVE SLEEP APNEA (ADULT) (PEDIATRIC); J44.9 - CHRONIC OBSTRUCTIVE PULMONARY DISEASE, UNSPECIFIED Status: Chronic - Plan Plan: Campylobacter jejuni colitis - Continue Cipro; flagyl d/c'd - CT abd shows large segment of colitis - occult blood + - bentyl for abdominal cramping - stool culture neg, O&P neg, lactoferrin positive, c diff positive, shiga toxin neg - blood cxs pending; negative to date - no travel history, visited a [facility] 1 [facility] ago, no recent hospitalization/antibiotics, no history IBD, sister w/ IBS, ate egg salad sandwich Sat. - d/c home on cipro with close follow up with PCP - d/c fluids; ensure patient tolerating PO - counseled on GBS s/s HTN - home meds HLD - home meds CKD stage III - Cr 1.11, 1.02 on august 2017 Migraine headaches - home topamax Hx of CAD, PVD - held home ASA 2/2 bleeding; may continue taking once cleared with PCP MDD/Anxiety - home brillenta, benzo Diet: ADAT Fluids: SL PPx: SCDs Dispo: Anticipate discharge home today. <Ines Desir - Last Filed: 03/09/18 07:35> (1) HTN (hypertension) Code(s): I10 - ESSENTIAL (PRIMARY) HYPERTENSION Status: Chronic Qualifiers: Hypertension type: essential hypertension Qualified Code(s): I10 - Essential (primary) hypertension (2) KEYONNA and COPD overlap syndrome Code(s): G47.33 - OBSTRUCTIVE SLEEP APNEA (ADULT) (PEDIATRIC); J44.9 - CHRONIC OBSTRUCTIVE PULMONARY DISEASE, UNSPECIFIED Status: Chronic (3) CKD (chronic kidney disease) stage 3, GFR 30-59 ml/min Code(s): N18.3 - CHRONIC KIDNEY DISEASE, STAGE 3 (MODERATE) Status: Acute (4) MDD (major depressive disorder) Code(s): F32.9 - MAJOR DEPRESSIVE DISORDER, SINGLE EPISODE, UNSPECIFIED Status : Chronic Qualifiers: Major depression episode severity: unspecified (5) PTSD (post-traumatic stress disorder) Code(s): F43.10 - POST-TRAUMATIC STRESS DISORDER, UNSPECIFIED Status: Acute (6) HLD (hyperlipidemia) Code(s): E78.5 - HYPERLIPIDEMIA, UNSPECIFIED Status: Chronic Qualifiers: Hyperlipidemia type: unspecified Qualified Code(s): E78.5 - Hyperlipidemia , unspecified <Yonathan Mcdowell - Last Filed: 03/09/18 13:55> Attending Addendum - Attending Addendum Date/Time: 03/09/18 1352 I personally evaluated the patient and discussed the management with Dr. Desir. I agree with the History, Examination, Assessment and Plan documented above with any addition or exceptions noted below. She feels well with no diarrhea or blood. She is afebrile, V/S stable and normal. Abdomen obese, soft, non-tender. Stool grew out Campylobacter jejunii. A: Campylobacter jejunii enterocolitis, resolving on antibiotic therapy with ciprofloxacin. P: D/C home on full course of Cipro. F/U with Dr. Zapata, PCP in 1 week. MD Ronit <Yonathan Mcdowell - Last Filed: 03/09/18 13:55>
[2018-03-09] MEDS ORDERED: Chloraseptic Spray 180 ml Bottle PO PRN (07:39)
[2018-03-09 08:44] VITALS: BP 107/53; TEMP 98.5
[2018-03-09] MEDS: Dicyclomine 20 MG TAB PO SCH ×2 (09:03→13:08)
[2018-03-09] MEDS: Lisinopril 10 MG TAB PO SCH (09:03)
[2018-03-09] MEDS: Ciprofloxacin 500 MG TAB PO SCH (09:04)
[2018-03-09] MEDS: Gabapentin 300 MG CAP PO SCH (09:04)
[2018-03-09] MEDS: ALPRAZolam 0.5 MG TAB PO SCH (09:04)
[2018-03-11 13:18] LABS: Norovirus GI Negative (Negative); Norovirus GII Negative (Negative)
--- NOTE | 2018-03-13 00:53 | DIS-2 ---
DATE OF ADMISSION: 03/07/2018 DATE OF DISCHARGE: 03/09/2018 ADMITTING ATTENDING: Dr. Yonathan Mcdowell. DISCHARGE ATTENDING: Dr. Yonathan Mcdowell. RESIDENT: Dr. Ines Desir. CONSULTATIONS: None. PROCEDURES: Abdomen and pelvis CT, long segment colitis indicating infectious versus inflammatory et iology, fatty liver, cholecystectomy, renal hypodensity, which may statistically reflect this. PRIMARY DIAGNOSES: 1. Campylobacter jejuni colitis. 2. Moderate dehydration. SECONDARY DIAGNOSES: 1. Hypertension. 2. Hyperlipidemia. 3. Chronic kidney disease, stage 3. 4. Migraine headaches. 5. History of coronary artery disease. 6. Peripheral vascular disease. 7. Major depressive disorder. 8. Anxiety. DISCHARGE MEDICATIONS: 1. Ciprofloxacin 750 mg oral twice daily for an additional 5 days. 2. Bentyl 20 mg oral tablet 4 times daily as needed for abdominal cramping. 3. Lovastatin 40 mg oral at bedtime. Patient apparently takes one and a half pills. 4. Lisinopril 10 mg oral daily. 5. Nexium 40 mg oral at bedtime. 6. Alprazolam 0.5 mg oral twice daily. 7. Potassium chloride 10 mEq oral daily. 8. Topiramate 100 mg oral at bedtime. DISCONTINUED MEDICATIONS: None. HISTORY OF PRESENT ILLNESS AND HOSPITAL COURSE: This is a 57-year-old female with past medical histo ry significant for coronary artery disease; peripheral vascular disease; hyperlipidemia; hypertension ; COPD; CKD, stage 3; and PTSD that presents with diarrhea for the past 4 days that became bloody sharmin roximately 2 days prior to arrival. Patient started to have significant pain on the day of admission , which prompted her to be evaluated. She described the pain as crampy in nature and rated 6-8/10 at the hospital. The patient also started to vomit with a couple of episodes of blood-tinged emesis. Patient did try to take in some fluids in the morning, but was having difficulty due to the abdominal pain as well as nausea. The patient has never had anything like this before. She states that she h as not had her period since age 41. She has no history of recent travel. No history of inflammatory bowel disease. She does state that she was admitted to a skilled nursing a week prior to arrival. The patient remained stable throughout the course of her hospital stay. She was started on Cipro and Flagyl in the Emergency Department and was fluid resuscitated with 1 liter of normal saline. She wa s then started on maintenance fluids. Stool studies were performed, which showed positive fecal lact oferrin as well as positive Campylobacter antigen. C. difficile antigen and toxin were performed, wh ich were negative. A rapid parasite screen was negative. E. coli 0157 culture was negative and bloo d cultures were negative at 5 days. Stool culture was also performed, which showed many normal enter ic brenden, but no Salmonella, Shigella, or Escherichia coli 0157. Fecal occult blood was positive. W bassem blood cell count on presentation was 11.5 with 82% neutrophils; on the next day. the white blood cell count had dropped down into 9.1. The following day, after being started on Cipro and Flagyl, patient's diarrhea had decreased drastica lly and the blood had stopped. She was still having supple bowel movements with mucus consistency fo r the day following admission. The abdominal cramping was still present at that time as well. The F lagyl was discontinued once the stool studies resulted and the patient was continued on Cipro to be t aken 750 mg b.i.d. for a period of 7 total days. On the morning of discharge, the patient reported t hat her bowel movements had completely resolved. She was able to sleep throughout the night without having to get up to use the restroom and she did not note any blood in her stools that morning. Her abdominal pain was essentially resolved. She only had mild cramping prior to bowel movement. Of not e, patient also came in with an acute kidney injury. She presently has stage 3 chronic kidney diseas e. Her GFR on admission was 51 with a BUN of 17 and a creatinine of 1.11; on the day following admis natalie, her creatinine was 0.98 with a GFR of 59. Thus, her acute kidney had resolved with fluid resus citation. Since the cause of the patient's colitis was identified and appropriate treatment was made available, the patient was prepared for discharge home with close follow up with primary care physician, Dr. Eliseo brush, within the next couple of days to ensure resolution and improvement in symptoms. The patient was clinically improved prior to discharge and was not having any further complications from her coli tis. DISPOSITION: Stable. DISCHARGE INSTRUCTIONS: 1. Location: Home. 2. Activity: No restrictions. 3. Diet: Heart healthy. 4. Followup: The patient was advised to follow up with Dr. Zapata within 3-5 days from discharge f rom the hospital to ensure resolution and improvement in symptoms. Patient was in understanding and agreeable with the plan.
== END 2018-03-09 13:17 | disposition home or self-care (01) | DRG 372 ==
LOC: SCSER 12:21 → T4-B 17:30
PROVIDERS: ADMIT Family Medicine; ATTEND Family Medicine
DX: A04.5 Campylobacter enteritis (principal); K51.00 Ulcerative (chronic) pancolitis without complications; K76.0 Fatty (change of) liver, not elsewhere classified; N18.3 Chronic kidney disease, stage 3 (moderate); Z68.42 Body mass index [BMI] 45.0-49.9, adult; E66.9 Obesity, unspecified; E78.5 Hyperlipidemia, unspecified; E86.0 Dehydration; I12.9 Hypertensive chronic kidney disease with stage 1 through stage 4 chronic kidney disease, or unspecified chronic kidney disease; G43.909 Migraine, unspecified, not intractable, without status migrainosus; I25.10 Atherosclerotic heart disease of native coronary artery without angina pectoris; I73.9 Peripheral vascular disease, unspecified; F32.9 Major depressive disorder, single episode, unspecified; F41.9 Anxiety disorder, unspecified; J44.9 Chronic obstructive pulmonary disease, unspecified; G47.33 Obstructive sleep apnea (adult) (pediatric); F43.11 Post-traumatic stress disorder, acute
CPT/HCPCS: 36415; 74177; 80048; 80053; 81003; 81015; 82274; 83630; 83690; 85025; 85610; 85652; 85730; 86140; 87040; 87045; 87046; 87324; 87328; 87329; 87389; 87449; 87798; 87899; 94760; 96361; 96365; 96375; 96376; J0744; J2270; J2405; J2550; J3010; J7050

== ENCOUNTER 2018-03-12 18:20 | Inpatient (IN) | payer MEDICARE, MEDICAID ==
[2018-03-12 19:10] LABS: #Eosinphils 0.1 thou/uL (0.0-0.7); #Lymphocytes 1.2 thou/uL (1.20-3.40); #Monocytes 0.9 thou/uL (0.11-0.59); #Neutrophils 5.1 thou/uL (1.40-6.50); %Basophils 0.5 % (0.0-1.0); %Eosinophils 0.9 % (0.0-10.0); %Lymphocytes 16.3 % (21.0-51.0); %Monocytes 12.5 % (0.0-10.0); %Neutrophils 69.8 % (42.0-75.0); Hemoglobin 10.7 g/dL (12.0-16.0); Mean Corpuscular HGB CONC 33.1 g/dL (32.0-36.0); Mean Corpuscular Hemoglobin 32.1 pg (27.0-31.0); Mean Corpuscular Volume 97.1 fl (81.0-99.0); Mean Platelet Volume 7.1 fL (7.4-10.4); Platelet Count 205 thou/uL (130-400); RBC Distribution Width 12.1 % (11.5-14.5); Red Blood Cell (RBC) Count 3.33 mill/uL (4.20-5.40); White Blood Cell (WBC) Count 7.3 thou/uL (4.8-10.8)
[2018-03-12 19:32] LABS: ALT (SGPT) 11 U/L (8-55); AST (SGOT) 12 U/L (5-34); Albumin 3.2 g/dL (3.5-5.0); Alkaline Phosphatase 90 U/L (40-150); Anion Gap 18 mmol/L (10-20); BUN (Urea Nitrogen) 53 mg/dL (9.8-20.1); Bilirubin, Total 0.3 mg/dL (0.2-1.2); Calc. Creatinine Clearance 0 mL/min (70-130); Calcium 8.4 mg/dL (7.8-10.44); Carbon Dioxide 14 mmol/L (22-29); Chloride 109 mmol/L (98-107); Estimated GFR-MDRD 4; Globulin 2.4 g/dL (2.4-3.5); Glucose 94 mg/dL (70-105); Potassium 4.8 mmol/L (3.5-5.1); Protein, Total 5.6 g/dL (6.0-8.3); Sodium 136 mmol/L (136-145)
--- NOTE | 2018-03-12 21:16 | PDOC.FPRHP ---
- History of Present Illness Chief Complaint: weakness, facial swelling, jerkiness, not acting normally History of Present Illness: Patient is a 57yo F with PMH of CKD3, Depression, and recent hospitalization -03/08 for Campylobacter jejuni gastroenteritis presents with a 2 day hx of worsening mentation, generalized weakness, swelling of the face, and "tics." Patient is accompanied by sister at the time. Sister reports only new medications are the ones prescribed at last hospital discharge which were Cipro and Reglan. Patient sees Dr. Zapata, PCP, and about a month ago had an increase in Trazadone from 50mg to 100mg. Other than those, no medication changes or additional herbal supplements. Patient denies recent fever, cough, chest pain, SOB, dysuria. She does report anuria today and R flank pain that started today. She also reports her diarrhea had subsided but started again last night, accompanied by N/V. While being evaluted in the ED, patients mentation continued to worsen, becoming more confused. Patient became agitated and aggressive towards family member and staff. Patient was given 10mg IV of Geodon at that time which seemed to settle her down. ED Course: She was found to have Cr. 10.5 and BUN [address] Fajardo, nephro, was consulted at that time and made recommendations for IVF and renal u/s. - Allergies/Adverse Reactions Allergies Allergy/AdvReac Type Severity Reaction Status Date / Time No Known Allergies Allergy Verified 08/31/17 16:59 - Home Medications Medication Instructions Recorded Confirmed Type Lisinopril [Zestril] 10 mg PO DAILY 03/05/14 03/13/18 History Lovastatin [Mevacor] 40 mg PO HS 03/05/14 03/13/18 History ALPRAZolam [Xanax] 0.5 mg PO BID 12/12/15 03/13/18 History Potassium Chloride [Klor-Con 10] 10 meq PO DAILY 12/12/15 03/13/18 History Topiramate 100 mg PO HS 08/31/17 03/13/18 History Gabapentin 1.5 tab PO TID 03/07/18 03/13/18 History Metoprolol Glass/Hydrochlorothiaz 1 each PO HS 03/07/18 03/13/18 History [Metoprolol ER-Hctz 25-12.5 mg] Omeprazole 40 mg PO DAILY 03/07/18 03/13/18 History Vortioxetine Hydrobromide 10 mg PO DAILY 03/07/18 03/13/18 History [Trintellix] traZODone HCl [Trazodone HCl] 100 mg PO HS 03/07/18 03/13/18 History Ciprofloxacin [Cipro] 750 mg PO BID #10 tab 03/09/18 03/13/18 Rx Dicyclomine [Bentyl] 20 mg PO QID PRN #30 tab 03/09/18 03/13/18 Rx - History PMHx:Obesity, HTN, COPD, GERD, Hypercholesterolemia, chronic knee arthritis, CAD , vulvar dysplasia, KEYONNA, psychiatric conditions, CKD3 PSHx: Knee surgery x3, Csection 1994, hernia repair in 1994, surgeries for vulvar dysplasia FHx: hx of gall stones. sister had similar symptoms and was diagnosed with IBS. Social: 40 year 1ppd smoker, quit 2 weeks ago, no alcohol, no drugs - Review of Systems General: reports: other (swelling throughout body, "tics and jerkiness", not acting right). denies: fever/chills, weight/appetite/sleep changes Eyes: denies: eye pain, vision changes ENT: denies: nasal congestion, rhinorrhea Respiratory: denies: cough, congestion, shortness of breath, exercise intolerance Cardiovascular: reports: edema. denies: chest pain, palpitation Gastrointestinal: reports: nausea, vomiting, diarrhea. denies: constipation, abdominal pain, GI bleeding Genitourinary: denies: incontinence, dysuria Skin: denies: rashes, lesions Musculoskeletal: reports: pain (R flank pain) Neurological: denies: numbness, syncope, seizure Psychological: denies: anxiety, depression - Vital signs BP: [] HR: [] RR: [] Tmax: [] Pox: []% on [] Wt: [] - Physical Exam Constitutional: NAD -Constitutional: AOx1, facial flushing HEENT: PERRLA, EOMI, no scleral icterus, grossly normal vision, grossly normal hearing, MMM -HEENT: Anasarca-like appearance to face, obvious facial tremors, myoclonus Neck: supple, no LAD, no bruits Chest: no-tender to palpation Heart: RRR, normal S1/S2, no murmurs/rubs/gallops -Heart: 1+ pitting edema bilaterally Lungs: CTAB, no respiratory distress Abdomen: soft, non-tender, bowel sounds present, no masses/distention Musculoskeletal: normal structure, normal tone Neurological: no focal deficit Skin: no rash/lesions, good turgor, capillary refill <2 seconds Heme/Lymphatic: no unusual bruising or bleeding, no purpura, no petechia -Psychiatric: Patient easily agitated. Has repetitive speaking. Labile personality at this time. FMR H&P: Results - Labs Result Diagrams: 03/12/18 19:02 03/12/18 19:02 Lab results: WBC 7.3 thou/uL (4.8-10.8) 03/12/18 19: Hgb 10.7 g/dL (12.0-16.0) L 03/12/18 19:02 Hct 32.3 % (36.0-47.0) L 03/12/18 19: MCV 97.1 fl (81.0-99.0) 03/12/18 19:02 Plt Count 205 thou/uL (130-400) 03/12/18 19:02 Neutrophils % 69.8 % (42.0-75.0) 03/12/18 19:02 Sodium 136 mmol/L (136-145) 03/12/18 19:02 Potassium 4.8 mmol/L (3.5-5.1) 03/12/18 19:02 Chloride 109 mmol/L (98-107) H 03/12/18 19:02 Carbon Dioxide 14 mmol/L (22-29) L 03/12/18 19:02 BUN 53 mg/dL (9.8-20.1) H 03/12/18 19:02 Creatinine 10.60 mg/dL (0.6-1.1) H 03/12/18 19:02 Glucose 94 mg/dL (70-105) 03/12/18 19:02 Lactic Acid 0.7 mmol/L (0.5-2.2) 03/12/18 19:02 Calcium 8.4 mg/dL (7.8-10.44) 03/12/18 19:02 Total Bilirubin 0.3 mg/dL (0.2-1.2) 03/12/18 19:02 AST 12 U/L (5-34) 03/12/18 19:02 ALT 11 U/L (8-55) 03/12/18 19:02 Alkaline Phosphatase 90 U/L (40-150) 03/12/18 19:02 Serum Total Protein 5.6 g/dL (6.0-8.3) L 03/12/18 19:02 Albumin 3.2 g/dL (3.5-5.0) L 03/12/18 19:02 - Radiology Interpretation US - abdomen Additional comment: Renal U/s: bilateral cortical thinning suggestive of long-term CKD, no other findings FMR H&P: A/P - Problem List (1) Acute metabolic encephalopathy Current Visit: Yes Status: Acute Code(s): G93.41 - METABOLIC ENCEPHALOPATHY (2) Acute renal failure (ARF) Current Visit: Yes Status: Acute (3) Metabolic acidosis Current Visit: Yes Status: Acute Code(s): E87.2 - ACIDOSIS (4) Hyperchloremia Current Visit: Yes Status: Acute Code(s): E87.8 - OTH DISORDERS OF ELECTROLYTE AND FLUID BALANCE, NEC (5) Normocytic anemia Current Visit: Yes Status: Acute Code(s): D64.9 - ANEMIA, UNSPECIFIED (6) PTSD (post-traumatic stress disorder) Current Visit: No Status: Chronic Code(s): F43.10 - POST-TRAUMATIC STRESS DISORDER, UNSPECIFIED (7) HLD (hyperlipidemia) Current Visit: No Status: Chronic Code(s): E78.5 - HYPERLIPIDEMIA, UNSPECIFIED Qualifiers: Hyperlipidemia type: unspecified Qualified Code(s): E78.5 - Hyperlipidemia , unspecified (8) HTN (hypertension) Current Visit: No Status: Chronic Code(s): I10 - ESSENTIAL (PRIMARY) HYPERTENSION Qualifiers: Hypertension type: essential hypertension Qualified Code(s): I10 - Essential (primary) hypertension (9) MDD (major depressive disorder) Current Visit: No Status: Chronic Code(s): F32.9 - MAJOR DEPRESSIVE DISORDER , SINGLE EPISODE, UNSPECIFIED Qualifiers: Major depression episode severity: unspecified (10) KEYONNA and COPD overlap syndrome Current Visit: No Status: Chronic Code(s): G47.33 - OBSTRUCTIVE SLEEP APNEA (ADULT) (PEDIATRIC); J44.9 - CHRONIC OBSTRUCTIVE PULMONARY DISEASE, UNSPECIFIED (11) Campylobacter gastroenteritis Current Visit: Yes Status: Acute Code(s): A04.5 - CAMPYLOBACTER ENTERITIS (12) CKD (chronic kidney disease) stage 3, GFR 30-59 ml/min Current Visit: Yes Status: Chronic Code(s): N18.3 - CHRONIC KIDNEY DISEASE, STAGE 3 (MODERATE) - Plan Metabolic Encephalopathy 2/2 Acute Renal Failure vs Serotonin Syndrome - s/p Geodon 5mg IM - consider restraints if again becomes a harm to self and others - minimize lines and provide reorientation - treat underlying cause: Likely 2/2 uremia but will d/c serotonergic medications with the exception of Trintellex and taper to avoid sx of withdrawal to consider serotonin syndrome - NS @ 150 - recheck BMP in AM - Vasudev on board, appreciate recs - Urine protein, Na, Cr pending - CTabd for stones pending - UA, urine cx pending - rule out other causes of AMS - CThead - CXR Acute Renal Failure on CKD3 - as above - Cr at discharge was 0.9 - avoid nephrotoxic drugs Hyperchloremia - 2/2 ARF - NS @ 150 - recheck in AM Anion Gap Metabolic Acidosis - 2/2 ARF - NS @ 150 - recheck in AM Normocytic Anemia - likely 2/2 recent gastroenteritis with bloody diarrhea, has since stopped - will monitor for stabilization - if stable, restart home ASA Campylobacter Gastroenteritis - had one episode of diarrhea today - stool cx to evaluate for resolution or accompanying infection HTN - continue home metoprolol - hold home lisinopril Multiple Psych Disorders - hold home meds with concern for serotonin syndrome except trintellex as disucssed above CAD s/p stent - consider restarting ASA if anemia stabilized HLD - hold home statin for now COPD - duonebs prn OA - avoid NSAIDS for now KEYONNA - CPAP if patient will tolerate - likely will worsen agitation, will use when more alert and oriented - monitor o2 sats overnight, O2 as needed VTE PPx: Lovenox Code status: Full Disposition/LOS: Length of hospital stay: 2 days FMR H&P: Upper Level - Pertinent history CHANG Zapata Date and Time Seen: 03/12/18 at 21:00 57 year old white female who presents with jerking motions and fatigue that started last night. She was discharged from the hospital on 03/09/18 after hospitalization for Campylobacter colitis. New medications added at that time were Cipro and Bentyl. The patient has been confused today so history was provided by her sister who has been staying with her. She notes that she noticed jerking motions, general fatigue and malaise, and generalzied weakness starting last night. She was unable to get out of bed independently. Only meds taken last night were Cipro and trazodone. She reports chills and headache. Denies fevers, dizziness, chest pain, shortness of breath, abdominal pain, nausea, vomiting, hematochezia, dysuria, and polyuria. Her sister notes she has had very little to drink. ER: Seen by Dr. Nicolas. No meds were given initially but Geodon was given when patient became agitated and combative. - Pertinent findings Vital Signs Tmax 99.8 RR 18 HR 66 BP 96/56 O2 sats 95% on room air Weight 113 kg Physical Exam General: Obese, awake, alert, oriented to person and place. Head:Normocephalic, atraumatic. Eyes: EOMI, PERRL, nonicteric, conjunctiva clear. ENT: Mucous membranes moist. Oropharnyx clear Respiratory: Clear to ausculatation No wheezing, rales, or rhonchi Abdomen: Nontender, nondistended. No guarding or rebound Back: Right CVA tenderness Extremities/Musculoskeletal: No edema. Equal movements bilaterally. Patient exhibits frequent jerking motions involving arms, legs, and shoulders Skin: No rash or ulcer. No palpable lesions. Mild facial flushing but no diffuse flushing. Neuro: CN II - XII intact. No focal deficits Psych: Patient anxious and confused. - Plan Date/Time: 03/12/182114 I, Amando Mena DO, have evaluated this patient and agree with findings/plan as outlined by marketing intern resident. Pertinent changes/additions are listed here. 1) Acute toxic metabolic encephalopathy due to uremia - Admit to IMCU. Likely 2 /2 to acute renal failure. - Dr. Fajardo consulted - he recomends IV hydration and will see patient in the morning. - CT head, CXR, and UA not performed in the ER - will get those now. - Patient became agitated and combatitive shortly after our exam - I reviewed the patient with Dr. Vasudev. He recommended Zyprexa or Geodon for agitation in light of her kidney function. Geodon was given. - Nursing staff was able to calm patient but she may require further medication or restraints should she become dangerous to herself or others - Patient is on a few serotonergic medications but myoclonus, flushing, and confusion in light of uremia is more indicative of uremic encephalopathy than serotonin syndrome. Will give Trintellix due to risk of withdrawal but will hold other serotonergic meds tonight 2) Acute renal failure on CKD stage 3 - Etiology unclear at this time. Suspect ATN. - BUN/Creatinine ratio not consistent with prerenal cause. - CT stone protocol, UA, urine protein, urine creatinine, and urine sodium ordered to help clarify cause - Nephro (Tana) consulted. We appreciate his assistance in this case 3) Anion gap metabolic acidosis - 2/2 #2. Will give iv fluids and monitor closely 4) Campylobacter colitis - Patient has not finished course of Cipro but will hold for now until cause of renal failure can be clarified 5) HTN - Continue metoprolol. Will need to hold HCTZ and lisinopril in light of kidney failure. 6) KEYONNA - Will clarify if patient uses CPAP at home. If so, will attempt to have it at bedside. However, CPAP may worsen agitation. 7) CAD - Home meds 8) HLD - Home meds 9) Depression - Although serotonin syndrome is a consideration, it is less likely than uremic encephalopathy and abrupt cessation of Trintellix could cause withdrawal which could worsen confusion and agitation. Will give at reduced dose for now and monitor closely. Attending Addendum - Attending Addendum Date/Time: 03/13/18 0023 I personally evaluated the patient and discussed the management with Dr. Frances I agree with the History, Examination, Assessment and Plan documented above with any addition or exceptions noted below- Briefly this is a 57 yo WF with h/ o COPD, PVD, HTN, HLD, CKD, CAD, and PTSD recently hospitalized for colitis secondary to Campylobacter jejuni presents via ambulance due to tremors, confusion that started today. Sister has been staying with patient since she was hospitalized and reports that diarrhea had resolved until today and she also developed N/V since last night. Minimal po intake today but had been eating well till last night. Denies any fever/chills, cough, URI symptoms. Denies any abdominal pain. PMH/PSH/All/Meds/ROS reviewed and agree with resident s documentation. T99.8 RR18 P66 BP 96/56 95% RA Exam repeated by me and agree with residents findings. Pertinent labs: Hgb=10.7 Hct= 32.3 WBC=7.3 Bdx=737 Na= 136 , K=4.8, TQ=187, CO2= 14, BUN=53, Cr= 10.60, Alb= 3.2, AST= 12, ALT=11 Lactic acid=0.7 Mg=2.1, PO4=8.9 CT brain- no acute findings, Renal YSG- cortical thinning bilaterally, CT abd stone protocol- interval improvement in long segment of colitis; no renal or ureteral calculi A/P: 1) Toxic metabolic encephalopathy- most likely secondary to uremia- nephrology consulted and recommended IVF hydration and will evaluate in AM; serotonin syndrome also in differential- will hold all her serotonin meds except for Trintellix. 2) ARF- continue IVF, 3) Recent Campylobacter infection- hold Cipro for now due to renal function. .
[2018-03-12] MEDS ORDERED: OLANZapine 10 MG VIAL IM SCH (21:45)
[2018-03-12] MEDS ORDERED: Water For Inject, Bacteriostat 30 ML ONE (21:53)
[2018-03-12] MEDS ORDERED: Ziprasidone 20 MG VIAL ONE (21:53)
--- NOTE | 2018-03-12 21:53 | ULT ---
RENAL ULTRASOUND: 03/12/18 INDICATION: Acute renal failure. COMPARISON: Prior CT of the abdomen and pelvis dated 03/07/18. FINDINGS: The right kidney measures 12.0 x 5.5 x 5.1 cm. The left kidney measures 12.0 x 5.9 x 5.1 cm. There is renal cortical thinning bilaterally with renal cortical thickness measuring 1.3 cm bilaterally. Prev oid bladder volume is 83.4 mL. IMPRESSION: 1. Mild renal cortical thinning bilaterally likely reflective of underlying chronic medical shireen l disease. 2. No hydronephrosis or solid renal lesion. POS: [facility]
[2018-03-12] MEDS ORDERED: Diazepam 10 MG/2 ML SYRINGE IVP SCH ×2 (22:00→23:45)
[2018-03-12 22:43] LABS: Magnesium 2.1 mg/dL (1.6-2.6); Phosphorus 8.9 mg/dL (2.3-4.7)
--- NOTE | 2018-03-12 23:13 | CT ---
CT OF THE BRAIN WITHOUT CONTRAST 03/12/18 INDICATION: Altered mental status with history of allergic reaction COMPARISON: None. FINDINGS: No acute infarct, hemorrhage, or hydrocephalus is present. Septum pellucidum and third ventricle are midline. Skull and extracranial soft tissues are unremarkable. IMPRESSION: No acute intracranial abnormality. POS: [facility]
--- NOTE | 2018-03-12 23:16 | CT ---
CT OF THE ABDOMEN AND PELVIS WITHOUT IV CONTRAST: 03/12/18 INDICATION: Acute renal injury with right sided flank pain. COMPARISON: Prior exam dated 03/07/18. FINDINGS: The extent of the colon wall thickening has significantly improved. There is mild bibasilar atelectasis. The gallbladder is surgically absent. The liver, spleen, pancreas and adrenal glands are unremarkable. There is a small sized hiatal hernia . No hydronephrosis is evident. No renal or ureteral calculus is evident. The bladder is decompressed. No definite acute osseous abnormality is evident. IMPRESSION: 1. Interval improvement in the long segment colitis seen on the comparison examination. 2. Otherwise stable exam. POS: [facility]
--- NOTE | 2018-03-12 23:18 | RAD ---
AP VIEW OF THE CHEST: 03/12/18 INDICATION: Allergic reaction with itching and redness in the face. COMPARISON: Prior exam dated 11/04/17. FINDINGS: There is mild cardiomegaly. There is mild pulmonary vascular congestion. No pleural effusion or pneum othorax is evident. There are vascular calcifications involving the aortic arch. There are ACDF invol ving the lower cervical spine. IMPRESSION: Cardiomegaly with mild pulmonary vascular congestion. POS: [facility]
[2018-03-12] MEDS ORDERED: Lorazepam 2 MG/ML VIAL ONE (23:36)
[2018-03-13] MEDS ORDERED: Ondansetron ODT 4 MG TAB SL PRN (00:11)
[2018-03-13] MEDS ORDERED: Ondansetron HCl/PF 4 MG/2 ML Vial IVP PRN (00:11)
[2018-03-13] MEDS ORDERED: Acetaminophen 325 MG TAB PO PRN (00:11)
[2018-03-13] MEDS: Sodium Chloride 0.9% 1,000 ML IV SCH ×3 (01:00→15:39)
[2018-03-13 01:39] LABS: Anion Gap 19 mmol/L (10-20); BUN (Urea Nitrogen) 57 mg/dL (9.8-20.1); Calc. Creatinine Clearance 0 mL/min (70-130); Calcium 8.3 mg/dL (7.8-10.44); Carbon Dioxide 12 mmol/L (22-29); Chloride 110 mmol/L (98-107); Estimated GFR-MDRD 4; Glucose 93 mg/dL (70-105); Potassium 5.2 mmol/L (3.5-5.1); Sodium 136 mmol/L (136-145)
[2018-03-13] MEDS ORDERED: Sodium Chloride 0.9% 500 ML IV SCH (02:15)
[2018-03-13] MEDS ORDERED: Sodium Chloride 0.9% 1,000 ML IV SCH ×2 (02:15→17:15)
[2018-03-13 04:02] LABS: Anion Gap 12 mmol/L (10-20); BUN (Urea Nitrogen) 58 mg/dL (9.8-20.1); Calc. Creatinine Clearance 11 mL/min (70-130); Calcium 8.4 mg/dL (7.8-10.44); Carbon Dioxide 18 mmol/L (22-29); Chloride 112 mmol/L (98-107); Estimated GFR-MDRD 4; Glucose 91 mg/dL (70-105); Potassium 4.9 mmol/L (3.5-5.1); Sodium 137 mmol/L (136-145)
[2018-03-13 04:14] LABS: Band 2 % (5-11); Eosinophils 2 % (0-10); Hemoglobin 9.1 g/dL (12.0-16.0); Lymphocytes 23 % (21-51); MDiff Complete? YES; Mean Corpuscular HGB CONC 33.4 g/dL (32.0-36.0); Mean Corpuscular Hemoglobin 32.2 pg (27.0-31.0); Mean Corpuscular Volume 96.4 fl (81.0-99.0); Monocytes 6 % (0-10); Neutrophil 63 % (42-75); PLT Morphology Comment Appears Adequate; Platelet Count 164 thou/uL (130-400); RBC Distribution Width 11.9 % (11.5-14.5); RBC Morphology Normal; Reactive Lymphocytes 4 % (0-10); Red Blood Cell (RBC) Count 2.84 mill/uL (4.20-5.40); White Blood Cell (WBC) Count 5.7 thou/uL (4.8-10.8)
--- NOTE | 2018-03-13 07:13 | PDOC.FM ---
- Subjective Subjective: Patient is acutely agitated and yelling threats to nursing/staff. She received Geodon in the ED and - Objective MAR Reviewed: No Vital Signs & Weight: Vital Signs (12 hours) Temp Pulse Resp BP Pulse Ox 03/13/18 04:04 98.5 F 63 19 100/34 L 95 03/13/18 00:05 99.6 F 61 20 102/53 L 93 L 03/13/18 00:00 99.6 F 61 20 93 L Weight Weight 121.591 kg I&O: 03/12/18 03/13/18 03/14/18 06:59 06:59 06:59 Intake Total 1750 Balance 1750 Result Diagrams: 03/13/18 03:38 03/13/18 06:49 <Moriah Singh - Last Filed: 03/13/18 09:46> - Objective Vital Signs & Weight: Vital Signs (12 hours) Temp Pulse Resp BP Pulse Ox 03/13/18 08:00 98.5 F 63 19 94 L 03/13/18 04:04 98.5 F 63 19 100/34 L 95 03/13/18 00:05 99.6 F 61 20 102/53 L 93 L 03/13/18 00:00 99.6 F 61 20 93 L Weight Admit Weight 121.591 kg Weight 121.591 kg I&O: 03/12/18 03/13/18 03/14/18 06:59 06:59 06:59 Intake Total 1750 Balance 1750 Result Diagrams: 03/13/18 03:38 03/13/18 06:49 <Los Meléndez - Last Filed: 03/13/18 11:10> Phys Exam - Physical Examination Constitutional: NAD Cardiovascular: RRR Gastrointestinal: soft, non-tender Musculoskeletal: edema present Neurological: moves all 4 limbs No clonus, no hyperreflexia Deviation from normal: somnolent Skin: no rash <Moriah Singh - Last Filed: 03/13/18 09:46> Dx/Plan - Plan Plan: Metabolic Encephalopathy - likely related to uremia - Ativan PRN for agitation - UDS/SDS pedning - Acute Renal Failure - Etiology unknown. - No evidence for stones on CT. Renal US shows chronic changes - urine studies pending - patient is currently anuric; simon ordered. Strict I/Os - Nephrology recs appreciated - continue fluids Possible HUS, given recent - will order peripheral smear, LDH, Haptoglobin, and retic to check for presence of hemolysis Metabolic Acidosis - likely related to #2 Hyperphosphatemia -likely related to #2 Volume Overload - Likely related to #2 - Echo ordered to r/o cardiac component - will continue to monitor O2 sats History of CAD - Continue ASA KEYONNA - Pt's family to bring CPAP from home HTN - BP low hold antihypertensives now. <Moriah Singh - Last Filed: 03/13/18 09:46> Attending Addendum - Attending Addendum Date/Time: 03/13/18 3716 I personally evaluated the patient and discussed the management with Dr. Singh. I agree with the History, Examination, Assessment and Plan documented above with any addition or exceptions noted below. Patient with several acute changes in her medical conditions. She continues to be confused and agitated, to the point of requiring restraints as well as Geodon /Haldol administration. She is currently sleeping peacefully. She has at times been a danger to herself and to staff, but is currently doing alright. This could be related to uremic encephalopathy, possible serotonin syndrome, or a combination. We will work to treat supportively, use Ativan and Geodon as needed. If her vitals and exam become more consistent with serotonin syndrome, will add Cyprohepatadine. However, it is not currently overwhelmingly consistent with that. All psychotropic medications are being held at this time. She also has new onset of acute renal failure on top of chronic renal disease. Unknown etiology. She has not been on medications that are prone to causing nephrotoxicity, no recent major medication changes, and family reports good PO intake. There was initially concern of Cipro causing this, but literature suggests this is a very rare thing to occur and is associated with crystalluria. We have Nephro on board and are awaiting the results of urine studies and sediment analysis. Her urine on visual inspection does not appear abnormal. No current need for urgent HD, but if she becomes volume overloaded that might become a necessity. Her electrolyte abnormalities are all related to her ARF. We are checking labs to evaluate for hemolysis though there has only been a modest decrease in Hgb and no change in Platelets, as her recent Campylobacter infection could pre-dispose to HUS that could potentially lead to her current symptomatology. <Los Meléndez R - Last Filed: 03/13/18 11:10>
[2018-03-13 07:15] LABS: Anion Gap 14 mmol/L (10-20); BUN (Urea Nitrogen) 57 mg/dL (9.8-20.1); Calc. Creatinine Clearance 11 mL/min (70-130); Calcium 8.3 mg/dL (7.8-10.44); Carbon Dioxide 13 mmol/L (22-29); Chloride 112 mmol/L (98-107); Estimated GFR-MDRD 4; Glucose 90 mg/dL (70-105); Potassium 4.9 mmol/L (3.5-5.1); Sodium 134 mmol/L (136-145)
[2018-03-13 07:16] LABS: Acetaminophen Less than 6.0 mcg/mL (10.0-30.0); Alcohol Less than 10 mg/dL (Less than 10); Salicylate Less than 8.0 mg/dL (15.0-30.0)
[2018-03-13] MEDS ORDERED: Haloperidol Lactate 5 MG/ML VIAL IM SCH ×2 (07:30→16:00)
[2018-03-13] MEDS: Lorazepam 2 MG/ML VIAL SLOW IVP PRN ×2 (08:00→12:12)
[2018-03-13 08:31] LABS: Reticulocyte Count 1.2 % (0.5-1.5)
[2018-03-13] MEDS ORDERED: Enoxaparin Sodium 40 MG/0.4 ML SYRINGE SC SCH (09:00)
[2018-03-13] MEDS ORDERED: Vortioxetine Hydrobromide [Trintellix] 5 MG PO SCH (09:00)
[2018-03-13] MEDS ORDERED: Hydrochlorothiazide 25 MG TAB PO SCH (09:00)
[2018-03-13] MEDS ORDERED: Prevnar 13-Val Conj/PF 0.5 ML SYRINGE IM ONE (09:00)
[2018-03-13] MEDS ORDERED: Nicotine 14 MG PATCH TD SCH (09:00)
[2018-03-13 09:35] LABS: Bilirubin Small (Negative); Blood, Urine Trace (Negative); Clarity CLOUDY (Clear); Glucose, Urine (Dipstick) Negative (Negative); Leukocyte Trace (Negative); Nitrite Negative (Negative); Protein, Urine (Dipstick) 30 mg/dL (Neg-Trace); Specific Gravity, Urine 1.015 (1.002-1.036); Urobilinogen 0.2 mg/dL (0.2-1.0)
[2018-03-13 09:36] LABS: Bacteria/HPF None Seen HPF (None Seen); Hyaline Casts/LPF 4-6 HYALINE CAST LPF (0-3 Hyaline); Pathc Cast-AUWi Flag 1.45 (0-2.49); RBC/HPF 0-3 HPF (0-3)
[2018-03-13 09:47] LABS: Amphetamine Not Detected (NotDetected); Barbiturates Screen Not Detected (NotDetected); Benzodiazepine Screen Detected (NotDetected); Cocaine Metabolite Screen Not Detected (NotDetected); Medtox Reader # READER 1; Methadone Not Detected (NotDetected); Methamphetamine Not Detected (NotDetected); Opiate Screen Not Detected (NotDetected); Oxycodone Screen Not Detected (NotDetected); Phencyclidine (PCP) Not Detected (NotDetected); THC/Cannabinoid Screen Not Detected (NotDetected); Tricyclic Screen Not Detected (NotDetected)
[2018-03-13 09:48] LABS: Medtox Control Line Valid? VALID (VALID); Yeast-AUWi Flag 75.8 (0-25.0)
[2018-03-13] MEDS ORDERED: Cyproheptadine HCl 2 MG/5 ML UDCUP PO SCH (10:00)
[2018-03-13 10:14] LABS: Creatinine, Urine 178.42 mg/dL (47-110); Yeast-All Forms None Seen HPF (None Seen)
[2018-03-13 10:15] LABS: Transitional Epithelial 0-3 HPF (0-3)
--- NOTE | 2018-03-13 11:11 | CON-2 ---
Consult Physician: Monty Fajardo MD DATE OF ADMISSION: 03/12/2018 DATE OF CONSULTATION: 03/13/2018 CHIEF COMPLAINT: Altered mentation and oliguria. HISTORY OF PRESENT ILLNESS: The patient is a 57-year-old female with a past medical history of CKD stage 3, and recent hospitalization for Campylobacter gastroenteritis who presented with 2-day history of worsening mentation. The patient was accompanied by family who reports that there has been no new medication besides Cipro, Reglan, and an increase in trazodone from 50 to 100 mg. The patient began having oliguria and right flank pain the previous day and had worsening episode of diarrhea accompanying nausea and vomiting. While in the ER, the patient was noted to have worsening mentation and was given 10 mg of geodon and it was found to be effective in reducing her agitation. She was found to have a creatinine of 10.5 and BUN of 53 in the ED and Nephrology was consulted on the case for this. DRUG ALLERGIES: No known drug allergies. HOME MEDICATIONS: 1. Lisinopril 10 mg p.o. daily. 2. Lovastatin 40 mg p.o. at bedtime. 3. Xanax 0.5 mg p.o. b.i.d. 4. Potassium chloride 10 mEq p.o. daily. 5. Topiramate 100 mg p.o. at bedtime. 6. Gabapentin 1.5 tablet p.o. t.i.d. 7. Metoprolol 125-12.5 mg p.o. at bedtime. 8. Omeprazole 40 mg p.o. daily. 9. Trintellix 10 mg p.o. daily. 10. Trazodone 100 mg p.o. at bedtime. 11. Cipro 750 mg p.o. b.i.d. 12. Bentyl 20 mg p.o. q.i.d. p.r.n. PAST MEDICAL HISTORY: 1. Obesity. 2. Hypertension. 3. Chronic obstructive pulmonary disease. 4. Gastroesophageal reflux disease. 5. Hypercholesterolemia. 6. Chronic knee arthritis. 7. Coronary artery disease. 8. Vulvar dysplasia. 9. Obstructive sleep apnea. PAST SURGICAL HISTORY: 1. Knee surgery x3. 2. in 1994. 3. Hernia repair in 1994. 4. Surgery for vulvar dysplasia. FAMILY HISTORY: 1. History of gallstone. 2. History of irritable bowel syndrome. SOCIAL HISTORY: Forty-year, 1 pack per day smoker, quitting 2 weeks ago. No alcohol and no drug use. REVIEW OF SYSTEMS: Unable to obtain as the patient had recently received Haldol and is sleeping. PHYSICAL EXAMINATION: VITAL SIGNS: Temperature 98.5 Fahrenheit, pulse 63, respiration 19, oxygen saturation 94% on room air, blood pressure 100/34. GENERAL: Sleeping, not in acute distress. Nontoxic appearing. HEENT: Moist mucosal membranes. No scleral icterus. NECK: Supple, no lymphadenopathy palpated. CARDIOVASCULAR: Regular rate and rhythm with normal S1, S2 with no appreciated murmurs, rubs or gallop. RESPIRATORY: Upper airway sounds heard, but otherwise no wheezing. Possible mild crackles in lung bases, GI: Soft, nontender, normal active bowel sounds. EXTREMITIES: Mild 1+ edema in the thighs and into shins. SKIN: No obvious rash or lesion. PSYCHIATRIC: Sedated currently. GENITOURINARY: West bag showed clear yellow urine. LABORATORY DATA: 1. WBC 5.7, hemoglobin 9.1, hematocrit 27.4, platelets 164. Retic count 1.2. 2. Sodium 134, potassium 4.9, chloride 112, bicarbonate 13, BUN 57, creatinine 11.6. Estimated GFR 4. Glucose 90. Lactic acid 0.7, calcium 8.3, phosphorus 8.9, magnesium 2.1. 3. Total bilirubin 0.3, AST 12, ALT 11. Ammonia 34. LDH 124. BNP 1350 and CK 87. 4. Salicylate less than 8, Acetaminophen less than 6, Plasma alcohol less than 10. IMAGIN. Abdominal and pelvis CT. Impression: Interval improvement in the long segment colitis seen in comparison examination, otherwise stable exam with mild bibasilar atelectasis and colon wall thickening and a small hiatal hernia. 2. Renal ultrasound. Impression: Right kidney measures 12 x 5.5 x 5.1. Left kidney measures 12 x 5.9 x 5.1. There is renal cortical thinning bilaterally with renal cortical thickness measuring 1.3 cm bilaterally. Prevoid bladder volume 83 mL, mild renal cortical thinning bilaterally is likely reflective of underlying chronic kidney disease. No hydronephrosis or solid renal lesion. 3. Brain CT. Impression: No acute infarct, hemorrhage, or hydrocephalus present. Septal pellucidum and third ventricles are midline. Skull and extracranial soft tissue are unremarkable. No acute intracranial abnormalities. 4. Chest x-ray. Impression: Mild cardiomegaly with mild pulmonary vascular congestion, no pleural effusion or pneumothorax evident. There is vascular calcification involving the aortic arch. There are ACDF involving the lower cervical spine. ASSESSMENT AND PLAN: 1. Acute metabolic encephalopathy. At this time, consider thrombotic thrombocytopenic purpura HUS as a possibility, though platelet is normal. We will plan to obtain a UA on this. Consider acute tubular necrosis as a possibility. The patient has a recent history of being dehydrated and BUN and creatinine ratio support this diagnosis. Consider uremic syndrome; however, the patient is not sedated and was having agitation which is not to be expected with uremic encephalopathy. Recommend follow up with Neurology for altered mentation. 2. Acute renal failure on chronic kidney disease stage 3. Recommend to stop HCTZ as home medications. We will obtain studies to evaluate for TTP HUS and studies for glomerulonephritis, obtain urine studies and urine culture, may obtain a renal biopsy if the studies are inconclusive. I agree with above and seen the patient with resident. ALEJANDRA
[2018-03-13 12:59] LABS: EliA Vaculitis New Method **** NEW METHOD ****; Glomerular Basemt Membrane Ab Less than 1.9 EliAU/mL (<7 Negative)
[2018-03-13] MEDS ORDERED: Haloperidol Lactate 5 MG/ML VIAL IM PRN (13:43)
[2018-03-13] MEDS: Heparin 5,000 UNITS/ML VIAL SC SCH ×2 (15:41→22:05)
[2018-03-13] MEDS ORDERED: Sodium Bicarbonate 150 MEQ in Dextrose 5% in Water 1,000 ML IV SCH (18:15)
[2018-03-13] MEDS: Haloperidol Lactate 5 MG/ML VIAL IM PRN (18:23)
--- NOTE | 2018-03-13 20:05 | CON ---
DATE OF CONSULTATION: 03/13/2018 HISTORY: Ms. Ahuja is a 57-year-old female who presented with altered mental status. History is obtained from her sister who is in the room. She is unable to give a history, but she is also just received lorazepam for combative behavior. She presented with an elevated creatinine, but not a dramatically elevated BUN. She recently was hospitalized for gastroenteritis, treated with 2 different antibiotics. She is not a drug user. She is, according to her sister, not a daily smoker. She has never had this happen before. She has no history of liver disease. She is unable to give a history. PAST MEDICAL HISTORY: 1. Remarkable for sleep apnea. Sister says she is very compliant with her CPAP. 2. Hypertension. 3. History of COPD, although I am not sure where this diagnosis came from or whether if there is PFTs to correlate with that. 4. History of reflux disease. 5. History of lipid disorder. 6. History of chronic kidney disease. 7. History of coronary artery disease. 8. History of knee surgery multiple times. 9. History of a . 10. History of a herniorrhaphy. 11. History of vulvar dysplasia and surgeries for that. 12. History of cholelithiasis. FAMILY HISTORY: Obtained from sister. SOCIAL HISTORY: Obtained from sister. REVIEW OF SYSTEMS: Not obtainable from her. PHYSICAL EXAMINATION: VITAL SIGNS: She is afebrile, heart rate 67, respiratory 20, oximetry is 99 on room air, blood pressure 104/34. GENERAL: She is snoring, but she is not having obstructive apnea. She will awaken and open her eyes, but she is nonverbal. She moves all of her extremities. HEENT: Her pupils reactive. Sclerae are anicteric. NECK: Supple. She has no meningismus. She has no lymphadenopathy. LUNGS: Clear. HEART: Regular rhythm. S1 and S2 are normal. ABDOMEN: Soft and nontender. EXTREMITIES: Without clubbing, cyanosis, or edema. LABORATORY DATA: White count 5.7, hemoglobin 9.1, platelets 164. Electrolytes : Potassium is 4.9, chloride 112, bicarbonate 13, BUN 57, creatinine 11.16. Creatinine yesterday was 11.05, BNP was 1350. Osmols are 310. Blood cultures are negative so far. Head CT showed no hemorrhage, no mass effect, no old cerebrovascular accidents. Chest radiograph shows no infiltrates, other than a mild increase in interstitial markings, some of this related to the technique. Renal ultrasound shows evidence of cortical thinning bilaterally. No obstructive findings were noted. Abdomen and pelvis CT was done showing "improvement of segmental colitis." IMPRESSION: Encephalopathy of unclear etiology. Ammonia was done on admission was 34. She is not uremic. There is no history of an ingestion leading up to this. She is not hyperosmolar. The acute decompensation would argue against this being secondary to untreated sleep apnea. Her TSH has not been done here since 2016, although I would doubt that this would be hypothyroidism, leading to her decompensation. She is actually quite somnolent, but she also received lorazepam prior to my evaluation of her. We will order a TSH. I doubt this is encephalitis secondary to mosquitos since we are just now entering into the mosquito season, it is still in the differential, however. Given her cortical thinning and her elevated creatinine that is not improving, she may end up requiring dialysis. Intake and output needs to be quantitated in her. I would be happy to follow with the other physicians caring for. She appears to be protecting her airway. She should try to get her to wear her CPAP when she is sleeping. This is a 50 minute consult with greater than 50% of the time spent on unit for coordination of care. ALEJANDRA
[2018-03-13 20:13] LABS: Actual Bicarbonate (HCO3a) 13.1 mEq/L (22-26); Base Excess (BEa) -13.5 mEq/L (0 (+/-) 2.5); CO2 Tension 32.9 mmHg (35.0-45.0); Calcium, Ionized 1.2 mmol/L (1.12-1.30); Hematocrit-ABG 26.3 % (36.0-47.0); Hemoglobin (Hb) 8.8 g/dL (12.0-16.0); O2 Tension (PaO2) 86.2 mmHg (80.0-100.0); Puncture Site LRA; pH, Arterial 7.22 (7.35-7.45)
[2018-03-13 20:14] LABS: ALV-art Gradient 21.355 (0-20)
[2018-03-13] MEDS ORDERED: Sodium Bicarb 50 MEQ/50 ML Abboject 8.4% SYRINGE IVP SCH (20:45)
--- NOTE | 2018-03-13 21:42 | OP ---
DATE OF PROCEDURE: 03/13/2018 PREOPERATIVE DIAGNOSIS: Acute renal failure. POSTOPERATIVE DIAGNOSIS: Acute renal failure. PROCEDURE: Right femoral temporary dialysis catheter. SURGEON: Maxim Fermin M.D. ANESTHESIA: Local. ESTIMATED BLOOD LOSS: Minimal. COMPLICATIONS: None. TECHNIQUE: The right was groin shaved, prepped, and draped in a sterile fashion. Local anesthetic i nfiltrated over the right femoral vein. Femoral vein cannulated using a Seldinger needle and a wire was passed under no tension. Wire was made at the entrance site. A edenilson was made at the wire entran ce site and the wire was used to guide to dilate the femoral vein. The Trialysis catheter was thread ed to its fullest extent over the wire under no tension. The wire was pulled and removed. All ports were flushed and drawn blood without difficulty. Each was flushed with a saline solution. No hepar in was used for flush because the patient is going to get dialysis immediately. The enclosed silk wa s used to suture the catheter to the groin skin. Sterile dressings were placed. The patient tolerat ed the procedure well.
[2018-03-13] MEDS ORDERED: Lidocaine 1% (PF) 30 ML VIAL FS SCH (22:00)
--- NOTE | 2018-03-13 22:19 | CON ---
DATE OF CONSULTATION: 03/13/2018 CONSULTING PHYSICIAN: [facility]. IMPRESSION: 1. Encephalopathy secondary to renal failure. 2. Hypertension. 3. Hyperlipidemia. 4. Obesity. 5. Obstructive sleep apnea. 6. Recent gastrointestinal illness resulting in secondary dehydration. PLAN: As per Renal's recommendations. HISTORY OF PRESENT ILLNESS: Ms. Ahuja is a 57-year-old woman who was recently noted to have some re nal insufficiency by her primary doctor. It was not to any degree that needs to be addressed and was being monitored. She apparently had colitis and has had some secondary nausea, vomiting, and diarrh ea. She became progressively more confused and agitated. She was brought to the hospital for evalua tion. Her CT scan of the brain was unremarkable. Chemistry panel was most notable for BUN of 58 and creatinine of 11.1. She has been started on fluids as per the recommendations of Nephrology. She c ontinues to have some agitation and hallucinations. PAST MEDICAL HISTORY: As listed above. ALLERGIES: None reported. SOCIAL HISTORY: Previous tobacco use, no alcohol use. FAMILY HISTORY: Noncontributory. REVIEW OF SYSTEMS: Not obtainable. PHYSICAL EXAMINATION: GENERAL: She is obese, middle-aged woman, lying in bed in restraints. HEENT: She opened her eyes to stimulation and her pupils appear to be equal and reactive. Conjuncti vae were clear. Cranium normocephalic and atraumatic. NECK: Supple. EXTREMITIES: No cyanosis noted. NEUROLOGIC: Her speech was generally babbling, but clear in quality. Cranial nerve exam was grossly symmetric. Muscle movements were equal bilaterally. She was bit restless, but no myoclonus or seiz ure-like activity was noted. Gait is not testable. She responded to stimulation symmetrically. SUMMARY: I believe her encephalopathy is related to her renal insufficiency. She has no evidence of any structural injury by a CT scan or exam. I think she will probably do well once her renal functi on improves.
--- NOTE | 2018-03-13 23:27 | PRG ---
DATE OF SERVICE: 03/13/2018 SUBJECTIVE: Blood gas was ordered by Dr. Fajardo this evening and was called to me. Reviewing her urine output today. She has had no urine output. She is essentially anuric, based on which recorded in the computer. Her pH is 7.22, CO2 of 32, pO2 of 86. She has metabolic acidosis most likely from her renal failure, combined with some degree of hyperchlo remia. She needs to be dialyzed in my opinion since she is not compensating completely. With her sleep apnea and her altered mental status, if we are going to dialyze her, I will have to in tubate her, maybe able to avoid intubation with dialysis. This is being relayed to the open shank coverer.
--- NOTE | 2018-03-14 00:32 | CON ---
DATE OF CONSULTATION: 03/13/2018 CONSULTING PHYSICIAN: Magalis Gusman MD REASON FOR CONSULTATION: Acute kidney injury. Please check and notify the resident Dr. Beasley also and I concur with these findings, we will get his consult note for past medical history and medications. ASSESSMENT AND PLAN: 1. Acute kidney injury with etiology unclear. The patient had a creatinine of 0.9 four days back an d then presented with a creatinine of 10.6 and acute encephalopathy, concerns for TTP and hemodialysi s, even though no evidence of hemodialysis, but workup pending. No nephrotic range proteinuria noted , but will check JASSON and ANCA levels. 2. Ultrasound with no obstruction. 3. Acute encephalopathy with agitation, less likely to be uremia related. Follow up with Neurology. Recommend neurology consult. 5. Hyperkalemia, mild, better. 6. Acidosis. We will monitor and add bicarbonate drip if tolerated. 7. Elevated BNP. Echo with a normal ejection fraction. 8. Morbid obesity. 9. Anemia, rule out hemolysis. 10. We will check immunological workup. Continue IV fluids if tolerated. Most likely acute tubular necrosis. We will check urine eosinophils also to rule out acute interstitial nephritis, which is l ess likely and continue hemolytic workup and we will follow.
[2018-03-14] MEDS: Haloperidol Lactate 5 MG/ML VIAL IM PRN (00:47)
[2018-03-14] MEDS ORDERED: Lorazepam 2 MG/ML VIAL SLOW IVP SCH (01:15)
[2018-03-14 03:53] LABS: HBSAB Concentration 0.49 mIU/mL; HBSAg Index 0.23 S/CO (0-0.99); Hep B Surf AB Non-Reactive (NonReactive); Hep B Surf Ag Non-Reactive S/CO (NonReactive)
[2018-03-14 06:16] LABS: Band 2 % (5-11); Hemoglobin 9.1 g/dL (12.0-16.0); Lymphocytes 13 % (21-51); MDiff Complete? YES; Mean Corpuscular HGB CONC 34.2 g/dL (32.0-36.0); Mean Corpuscular Hemoglobin 32.5 pg (27.0-31.0); Monocytes 6 % (0-10); Neutrophil 79 % (42-75); PLT Morphology Comment Appears Adequate; Platelet Count 164 thou/uL (130-400); RBC Distribution Width 11.8 % (11.5-14.5)
[2018-03-14] MEDS ORDERED: Activase 2 MG VIAL CATH SCH (06:30)
[2018-03-14] MEDS ORDERED: Sterile Water 10 ML VIAL IVP SCH (06:30)
[2018-03-14 06:31] LABS: Chloride 106 mmol/L (98-107); Potassium 3.5 mmol/L (3.5-5.1); Sodium 139 mmol/L (136-145)
[2018-03-14 06:32] LABS: Calcium 8.4 mg/dL (7.8-10.44); Glucose 86 mg/dL (70-105)
[2018-03-14 06:34] LABS: Anion Gap 15 mmol/L (10-20); Carbon Dioxide 22 mmol/L (22-29)
[2018-03-14 06:36] LABS: BUN (Urea Nitrogen) 38 mg/dL (9.8-20.1); Calc. Creatinine Clearance 16 mL/min (70-130); Estimated GFR-MDRD 6
--- NOTE | 2018-03-14 08:14 | PDOC.FM ---
- Subjective Subjective: Patient's mental status continues to be altered. She received dialysis early this morning, and 850 ml of fluid were pulled off. - Objective MAR Reviewed: Yes Vital Signs & Weight: Vital Signs (12 hours) Temp Pulse Resp Pulse Ox 03/14/18 04:00 99.8 F H 03/14/18 00:00 99.7 F H 03/13/18 22:34 99.7 F H 66 22 H 94 L Weight Admit Weight 121.591 kg Weight 121.591 kg Most Recent Monitor Data Heart Rate from ECG 68 NIBP 110/37 NIBP BP-Mean 90 Respiration from ECG 18 SpO2 97 I&O: 03/13/18 03/14/18 03/15/18 06:59 06:59 06:59 Intake Total 1750 1370 Output Total 167 Balance 1750 1203 Result Diagrams: 03/14/18 02:37 03/14/18 02:37 <Moriah Singh - Last Filed: 03/14/18 08:18> - Objective Vital Signs & Weight: Vital Signs (12 hours) Temp 03/14/18 08:00 99.4 F 03/14/18 04:00 99.8 F H 03/14/18 00:00 99.7 F H Weight Admit Weight 121.591 kg Weight 121.591 kg Most Recent Monitor Data Heart Rate from ECG 68 NIBP 103/41 NIBP BP-Mean 60 Respiration from ECG 34 SpO2 96 I&O: 03/13/18 03/14/18 03/15/18 06:59 06:59 06:59 Intake Total 1750 1370 240 Output Total 167 63 Balance 1750 1203 177 Result Diagrams: 03/14/18 02:37 03/14/18 02:37 <Los Meléndez - Last Filed: 03/14/18 11:37> Phys Exam - Physical Examination Constitutional: NAD Respiratory: clear to auscultation bilateral Cardiovascular: RRR Gastrointestinal: soft, non-tender, no distention Neurological: non-focal <Moriah iSngh - Last Filed: 03/14/18 08:18> Dx/Plan - Plan Plan: 1. Metabolic encephalopathy - most likely secondary to acute renal failure - Haldol prn for agitation. 2. Acute renal failure - FENa suggests intrinsic etiology, likely ATN - ABG last night showed pH of 7.22; pt received dialysis last night for acidosis. - Renal function has improved. - Nephrology recs appreciated. 3. Possible Serotonin syndrome - continue Cyproheptadine 4. History of CAD. - continue ASA, beta elizabeth. 5. KEYONNA - CPAP at night. <Moriah Singh - Last Filed: 03/14/18 08:18> Attending Addendum - Attending Addendum Date/Time: 03/14/18 2115 I personally evaluated the patient and discussed the management with Dr. Singh. I agree with the History, Examination, Assessment and Plan documented above with any addition or exceptions noted below. Patient with improved mentation this morning, and family reports that it continues to improve. Her encephalopathy is likely 2/2 ARF and uremia, as it has begun to improve after dialysis overnight. Nephro continues to feel this is related to ATN, but unknown what the initial insult that precipitated it. Continue supportive care and avoidance of nephrotoxic agents, and patient may need further HD sessions. She did run low grade temp overnight around the time of HD initiation, will need to monitor to ensure she does not show other clinical signs of infection. Hold on antibiotics at this time. <Los Meléndez - Last Filed: 03/14/18 11:37>
[2018-03-14] MEDS ORDERED: Vortioxetine Hydrobromide [Trintellix] 5 MG PO SCH (09:00)
[2018-03-14] MEDS: Heparin 5,000 UNITS/ML VIAL SC SCH ×3 (10:01→21:22)
--- NOTE | 2018-03-14 12:01 | PRG ---
DATE OF SERVICE: 03/14/2018 SUBJECTIVE: Patient was seen and examined at bedside and overnight events noted. Patient denies any shortness of breath or chest pain or palpitation. No history of nausea or vomiting or diarrhea or f ever or chills or cramps. OBJECTIVE: GENERAL: This is an obese female in much better mental status gonzalez. VITAL SIGNS: Temperature 99.4, pulse 70, respiratory 18, blood pressure 104/44. HEENT: Atraumatic, normocephalic. Oral mucosa is moist. NECK: Supple. CARDIOVASCULAR: S1, S2 heard. Rate and rhythm regular. RESPIRATORY: Clear to auscultation. GASTROINTESTINAL: Abdomen is soft. MUSCULOSKELETAL: No tenderness, no edema. DERMATOLOGIC: No skin rash. NEUROLOGIC: Alert and awake and oriented x3. No focal neurologic deficits. Moving all the extremit ies. PSYCHIATRIC: Mood and affect normal. LABORATORY DATA: Potassium is 3.5, BUN is 38, creatinine is 7.4 during dialysis. ASSESSMENT AND RECOMMENDATIONS: 1. Acute kidney injury most likely volume depletion with possible contrast nephropathy. Overall, th e patient needing dialysis yesterday because of the altered mentation and severe acidosis. The patie nt is looking much better. 2. Uremic encephalopathy. 3. Hyperkalemia, better. 4. Acidosis. 5. Morbid obesity. The patient had emergent dialysis, feeling better today. We will continue to follow, most likely con trast nephropathy and ATN.
--- NOTE | 2018-03-14 12:33 | PRG ---
DATE OF SERVICE: 03/14/2018 Cherry Ahuja's encephalopathy has improved dramatically. She awakened and said hello when I walked into the room and she heard my voice. PHYSICAL EXAMINATION: VITAL SIGNS: Heart rate 68, blood pressure 102/36, respiratory rates in the 20s. She did sleep with her CPAP last night. I have asked the nurse to make sure she wears her CPAP whenever she sleeps. S he does not have much in the way of obstructive apneas, but she does snore significantly. This may b e disrupting her sleep. LUNGS: Her lungs are clear. HEART: Regular rhythm. ABDOMEN: Her abdomen is soft. LABORATORY DATA: White count 6.0, hemoglobin 9.1, platelets 164,000. Electrolytes are normal. BUN 38, creatinine 7.46. Bicarbonate is 22, yesterday morning 13, before that yesterday morning at 3:30 in the morning was 18. IMPRESSION: Metabolic acidosis, predominantly secondary to renal failure. There was a component of hyperchloremia as well. With her renal cortical thinning I suspect she will be long-term dialysis patient, so the nurses korey d to start preserving IV access on her upper extremities. Vascular Access, need to be consulted prob ably early next week. She will probably benefit from dialysis again tomorrow in my opinion, there is no clear indication for it today.
[2018-03-14 15:30] LABS: Anion Gap 15 mmol/L (10-20); BUN (Urea Nitrogen) 45 mg/dL (9.8-20.1); Calc. Creatinine Clearance 13 mL/min (70-130); Calcium 7.7 mg/dL (7.8-10.44); Carbon Dioxide 20 mmol/L (22-29); Chloride 107 mmol/L (98-107); Estimated GFR-MDRD 4; Glucose 106 mg/dL (70-105); Potassium 4.2 mmol/L (3.5-5.1); Sodium 138 mmol/L (136-145)
[2018-03-15 04:56] LABS: Anion Gap 15 mmol/L (10-20); BUN (Urea Nitrogen) 49 mg/dL (9.8-20.1); Calc. Creatinine Clearance 12 mL/min (70-130); Carbon Dioxide 21 mmol/L (22-29); Chloride 107 mmol/L (98-107); Estimated GFR-MDRD 4; Glucose 90 mg/dL (70-105); Sodium 139 mmol/L (136-145)
[2018-03-15 05:14] LABS: Band 3 % (5-11); Hemoglobin 8.1 g/dL (12.0-16.0); Lymphocytes 30 % (21-51); MDiff Complete? YES; Mean Corpuscular HGB CONC 32.8 g/dL (32.0-36.0); Mean Corpuscular Hemoglobin 31.3 pg (27.0-31.0); Mean Corpuscular Volume 95.4 fl (81.0-99.0); Mean Platelet Volume 7.7 fL (7.4-10.4); Monocytes 11 % (0-10); Neutrophil 52 % (42-75); Nucleated RBC 1 % (0); PLT Morphology Comment Appears Adequate; Platelet Count 160 thou/uL (130-400); RBC Distribution Width 11.7 % (11.5-14.5); RBC Morphology Normal; Reactive Lymphocytes 4 % (0-10); Red Blood Cell (RBC) Count 2.58 mill/uL (4.20-5.40); White Blood Cell (WBC) Count 3.8 thou/uL (4.8-10.8)
--- NOTE | 2018-03-15 07:22 | PDOC.FM ---
- Subjective Subjective: Pt is on cpap when entering the room. vital signs stable. Pt is resting comfortably. A&Ox3. No acute distress. Denies any fevers or chills overnight. Denies any pain. No concerns or complaints. Pt doing well at this time. - Objective MAR Reviewed: Yes Vital Signs & Weight: Vital Signs (12 hours) Temp Pulse Resp Pulse Ox 03/15/18 04:00 98.7 F 03/15/18 00:00 99.4 F 03/14/18 20:00 98.7 F 74 21 H 94 L Weight Admit Weight 121.591 kg Weight 122.1 kg Most Recent Monitor Data Heart Rate from ECG 70 NIBP 111/49 NIBP BP-Mean 60 Respiration from ECG 20 SpO2 93 I&O: 03/14/18 03/15/18 03/16/18 06:59 06:59 06:59 Intake Total 1370 720 Output Total 167 281 Balance 1203 439 Result Diagrams: 03/15/18 04:35 03/15/18 04:35 EKG Reviewed by me: Yes Radiology Reviewed by me: Yes (No new imaging to review at this time) <James Colvin - Last Filed: 03/15/18 07:20> - Objective Vital Signs & Weight: Vital Signs (12 hours) Temp Pulse Resp Pulse Ox 03/15/18 08:00 98.0 F 69 20 95 03/15/18 07:00 98.0 F 03/15/18 04:00 98.7 F 03/15/18 00:00 99.4 F Weight Admit Weight 121.591 kg Weight 122.1 kg Most Recent Monitor Data Heart Rate from ECG 68 NIBP 139/54 NIBP BP-Mean 72 Respiration from ECG 22 SpO2 92 I&O: 03/14/18 03/15/18 03/16/18 06:59 06:59 06:59 Intake Total 1370 720 250 Output Total 167 281 45 Balance 1203 439 205 Result Diagrams: 03/15/18 04:35 03/15/18 04:35 <Sunitha Zapata - Last Filed: 03/15/18 10:37> Phys Exam - Physical Examination Constitutional: NAD HEENT: PERRLA, moist MMs Neck: no nodes, supple, full ROM Respiratory: clear to auscultation bilateral On cpap Cardiovascular: RRR, no significant murmur, no rub Gastrointestinal: soft, non-tender, no distention, positive bowel sounds Musculoskeletal: no edema, pulses present Neurological: non-focal, normal sensation, moves all 4 limbs Lymphatic: no nodes Psychiatric: normal affect, A&O x 3 Skin: no rash, cap refill <2 seconds <James Colvin - Last Filed: 03/15/18 07:20> Dx/Plan (1) Acute metabolic encephalopathy Code(s): G93.41 - METABOLIC ENCEPHALOPATHY Status: Acute (2) Acute renal failure (ARF) Status: Acute (3) HTN (hypertension) Code(s): I10 - ESSENTIAL (PRIMARY) HYPERTENSION Status: Chronic QualifierTitle: Hypertension type: essential hypertension Qualified Code( s): I10 - Essential (primary) hypertension (4) MDD (major depressive disorder) Code(s): F32.9 - MAJOR DEPRESSIVE DISORDER, SINGLE EPISODE, UNSPECIFIED Status : Chronic QualifierTitle: Major depression episode severity: unspecified (5) KEYONNA and COPD overlap syndrome Code(s): G47.33 - OBSTRUCTIVE SLEEP APNEA (ADULT) (PEDIATRIC); J44.9 - CHRONIC OBSTRUCTIVE PULMONARY DISEASE, UNSPECIFIED Status: Chronic (6) PTSD (post-traumatic stress disorder) Code(s): F43.10 - POST-TRAUMATIC STRESS DISORDER, UNSPECIFIED Status: Chronic - Plan Plan: 1. Metabolic encephalopathy likely 2/2 to ARF - most likely secondary to acute renal failure. Suspected ATN - Haldol prn for agitation. -Nephro- Dr. Fajardo consulted- follow recs- suspect contrast nephropathy -Pt improving after dialysis. 2. Acute renal failure - FENa suggests intrinsic etiology, likely ATN - ABG 03/13 showed pH of 7.22; Pt received dialysis yesterday for acidosis. Mentation improved - Renal function stable. Cr. 9.84. - Nephrology recs appreciated. 3. Possible Serotonin syndrome - continue Cyproheptadine 4. History of CAD. - continue ASA, beta elizabeth. 5. KEYONNA - CPAP at night. 6. MDD/PTSD -Holding home meds at this time due to ARF and ATN -May want to restart as starting to get dialysis -Follow recs of Dr. Fajardo. <James Colvin - Last Filed: 03/15/18 07:20> Attending Addendum - Attending Addendum Date/Time: 03/15/18 1036 I personally evaluated the patient and discussed the management with Dr. Colvin. I agree with the History, Examination, Assessment and Plan documented above with any addition or exceptions noted below. The patient is feeling better. She is not agitated this morning. Will advance her diet and transfer her to the floor. Continued dialysis per nephrology. C. diff was negative last night. <Sunitha Zapata - Last Filed: 03/15/18 10:37>
[2018-03-15] MEDS: Heparin 5,000 UNITS/ML VIAL SC SCH ×3 (08:43→21:24)
--- NOTE | 2018-03-15 09:16 | PRG ---
DATE OF SERVICE: 03/15/2018 SUBJECTIVE: The patient is doing better. She had no acute complaints. OBJECTIVE: VITAL SIGNS: Temperature is 98.7, pulse 70, blood pressure 111/49, O2 sat 93%. HEENT: Unremarkable. NECK: No JVD. LUNGS: Clear. CARDIAC: S1 and S2 regular. ABDOMEN: Obese, soft, nontender. EXTREMITIES: No edema. LABORATORY DATA: Sodium 139, potassium 4, chloride 107, CO2 21, BUN 49, creatinine 9.8, glucose 90. White blood count 3.8, hematocrit 24.6, platelet count 160. ASSESSMENT: 1. Acute on chronic renal failure. 2. Metabolic acidosis, which is better. PLAN: 1. She can be transferred to the floor. 2. Continue dialysis. 3. Discontinue West catheter. 4. Advance diet as tolerated.
--- NOTE | 2018-03-15 17:03 | PRG ---
DATE OF SERVICE: 03/15/2018 SUBJECTIVE: Patient was seen and examined at bedside and overnight events noted. Patient denies any shortness of breath or chest pain or palpitation. No history of nausea or vomiting or diarrhea or f ever or chills or cramps. PHYSICAL EXAMINATION: GENERAL: Obese female in no apparent distress. VITAL SIGNS: Temperature 99.0, pulse 70, respirations 18, blood pressure 138/52. HEENT: Atraumatic, normocephalic. Oral mucosa is moist. NECK: Supple. CARDIOVASCULAR: S1, S2 heard. Rate and rhythm regular. RESPIRATORY: Clear to auscultation. GASTROINTESTINAL: Abdomen is soft. MUSCULOSKELETAL: No tenderness. No edema. DERMATOLOGIC: No skin rash. NEUROLOGIC: Alert and awake and oriented x3. No focal neurologic deficits. Moving all the extremit ies. PSYCHIATRIC: Mood and affect normal. LABORATORY DATA: Potassium is 4.0, BUN is 49, creatinine is 9.4. ASSESSMENT AND PLAN: 1. Acute kidney injury with a baseline creatinine of 0.9 last week. Currently, dialysis dependent. Urine output probably improving. No acute indication for dialysis. Plan is to hold dialysis, monit or renal function with avoidance of nephrotoxic agents. 2. Uremic encephalopathy, better. 3. Metabolic acidosis secondary to renal failure. 4. Hyperkalemia, better. 5. Morbid obesity. Overall, stable renal function. No acute indication for dialysis. We will hold dialysis today. We will decide on a daily basis, avoid nephrotoxins and continue hydration as tolerated. We will follow . Renally dose all the medicines.
[2018-03-15] MEDS ORDERED: Haloperidol Lactate 5 MG/ML VIAL IM PRN (17:08)
[2018-03-16 05:35] LABS: #Eosinphils 0.2 thou/uL (0.0-0.7); #Lymphocytes 1.4 thou/uL (1.20-3.40); #Monocytes 0.7 thou/uL (0.11-0.59); #Neutrophils 3.2 thou/uL (1.40-6.50); %Basophils 0.6 % (0.0-1.0); %Eosinophils 2.8 % (0.0-10.0); %Lymphocytes 25.2 % (21.0-51.0); %Monocytes 11.9 % (0.0-10.0); %Neutrophils 59.5 % (42.0-75.0); Hemoglobin 8.7 g/dL (12.0-16.0); Mean Corpuscular HGB CONC 33.7 g/dL (32.0-36.0); Mean Corpuscular Hemoglobin 32.2 pg (27.0-31.0); Mean Corpuscular Volume 95.5 fl (81.0-99.0); Mean Platelet Volume 7.4 fL (7.4-10.4); Platelet Count 195 thou/uL (130-400); RBC Distribution Width 11.7 % (11.5-14.5); Red Blood Cell (RBC) Count 2.69 mill/uL (4.20-5.40); White Blood Cell (WBC) Count 5.4 thou/uL (4.8-10.8)
[2018-03-16 05:47] LABS: Anion Gap 16 mmol/L (10-20); BUN (Urea Nitrogen) 56 mg/dL (9.8-20.1); Calc. Creatinine Clearance 11 mL/min (70-130); Calcium 8.7 mg/dL (7.8-10.44); Carbon Dioxide 22 mmol/L (22-29); Chloride 107 mmol/L (98-107); Estimated GFR-MDRD 4; Glucose 89 mg/dL (70-105); Potassium 3.8 mmol/L (3.5-5.1); Sodium 141 mmol/L (136-145)
--- NOTE | 2018-03-16 07:00 | PDOC.FM ---
- Subjective Subjective: Pt doing well this morning. Denies any acute events overnight. No pain reported. No acute SOB. Sister present in the room and says patient been doing well from confusion standpoint. Patient A&Ox3. Does not seem acutely confused at this time. - Objective MAR Reviewed: Yes Vital Signs & Weight: Vital Signs (12 hours) Temp Pulse Resp BP Pulse Ox 03/16/18 04:00 98.0 F 52 L 18 120/58 L 96 03/16/18 00:14 98.3 F 57 L 18 122/53 L 94 L 03/15/18 20:13 98.6 F 63 18 120/55 L 93 L 03/15/18 20:00 98.6 F 63 18 Weight Admit Weight 121.591 kg Weight 120.656 kg Most Recent Monitor Data Heart Rate from ECG 63 NIBP 138/52 NIBP BP-Mean 65 Respiration from ECG 17 SpO2 99 I&O: 03/14/18 03/15/18 03/16/18 06:59 06:59 06:59 Intake Total 3306 102 9560 Output Total 167 281 745 Balance 1203 439 285 Result Diagrams: 03/16/18 05:01 03/16/18 05:01 EKG Reviewed by me: Yes (Tele monitor reviewed) Radiology Reviewed by me: Yes (No new imaging to review) <James Colvin - Last Filed: 03/16/18 06:58> - Objective Vital Signs & Weight: Vital Signs (12 hours) Temp Pulse Resp BP Pulse Ox 03/16/18 12:23 97.6 F 64 18 147/81 H 96 03/16/18 11:44 98.3 F 63 18 155/69 H 94 L 03/16/18 07:45 98.3 F 55 L 18 93 L 03/16/18 07:42 98.3 F 55 L 18 111/56 L 93 L 03/16/18 04:00 98.0 F 52 L 18 120/58 L 96 Weight Admit Weight 121.591 kg Weight 120.656 kg Most Recent Monitor Data Heart Rate from ECG 63 NIBP 138/52 NIBP BP-Mean 65 Respiration from ECG 17 SpO2 99 I&O: 03/15/18 03/16/18 03/17/18 06:59 06:59 06:59 Intake Total 720 1030 Output Total 281 745 Balance 439 285 Result Diagrams: 03/16/18 05:01 03/16/18 05:01 <BennySunitha - Last Filed: 03/16/18 12:35> Phys Exam - Physical Examination Constitutional: NAD HEENT: PERRLA, moist MMs, sclera anicteric Neck: no nodes, no JVD, supple, full ROM Respiratory: no wheezing, no rales, no rhonchi, clear to auscultation bilateral Cardiovascular: RRR, no significant murmur, no rub Gastrointestinal: soft, non-tender, no distention, positive bowel sounds Musculoskeletal: no edema, pulses present Neurological: non-focal, normal sensation, moves all 4 limbs Lymphatic: no nodes Psychiatric: normal affect, A&O x 3 Skin: no rash, normal turgor, cap refill <2 seconds <James Colvin - Last Filed: 03/16/18 06:58> Dx/Plan (1) Acute metabolic encephalopathy Code(s): G93.41 - METABOLIC ENCEPHALOPATHY Status: Acute (2) Acute renal failure (ARF) Status: Acute (3) HTN (hypertension) Code(s): I10 - ESSENTIAL (PRIMARY) HYPERTENSION Status: Chronic QualifierTitle: Hypertension type: essential hypertension Qualified Code( s): I10 - Essential (primary) hypertension (4) MDD (major depressive disorder) Code(s): F32.9 - MAJOR DEPRESSIVE DISORDER, SINGLE EPISODE, UNSPECIFIED Status : Chronic QualifierTitle: Major depression episode severity: unspecified (5) KEYONNA and COPD overlap syndrome Code(s): G47.33 - OBSTRUCTIVE SLEEP APNEA (ADULT) (PEDIATRIC); J44.9 - CHRONIC OBSTRUCTIVE PULMONARY DISEASE, UNSPECIFIED Status: Chronic (6) PTSD (post-traumatic stress disorder) Code(s): F43.10 - POST-TRAUMATIC STRESS DISORDER, UNSPECIFIED Status: Chronic - Plan Plan: 1. Metabolic encephalopathy likely 2/2 to ARF - most likely secondary to acute renal failure. Suspected ATN - Haldol prn for agitation. -Nephro- Dr. Fajardo consulted- follow recs- suspect contrast nephropathy -Pt improving after 1 day of dialysis 2. Acute renal failure - FENa suggests intrinsic etiology, likely ATN - ABG 03/13 showed pH of 7.22; Pt received dialysis a few days ago for acidosis. Mentation improved - Renal function stable. Cr 10, increasing, BUN increasing. Will await plan from Nephro. Might need some more dialysis - Nephrology recs appreciated. 3. Possible Serotonin syndrome - givend doses of cyproheptadine. Mentation and confusion more likely due to uremia. Will stop medication at this time. 4. History of CAD. - continue ASA, beta elizabeth. 5. KEYONNA - CPAP at night. 6. MDD/PTSD -Holding home meds at this time due to ARF and ATN -Follow recs of Dr. Fajardo. <James Colvin - Last Filed: 03/16/18 06:58> Attending Addendum - Attending Addendum Date/Time: 03/16/18 1234 I personally evaluated the patient and discussed the management with Dr. Colvin. I agree with the History, Examination, Assessment and Plan documented above with any addition or exceptions noted below. The patient sister told me that she did get confused around 4 pm. yesterday like she did the day prior. I suspect she has some delirium and it could also be in part due to the renal failure. Will defer to nephrology on dialysis but bun and creatinine have both increased. Will monitor confusion. Opened the blinds and want pt to sit up today. Consult PT. <Sunitha Zapata - Last Filed: 03/16/18 12:35>
[2018-03-16] MEDS: Heparin 5,000 UNITS/ML VIAL SC SCH ×3 (08:23→21:09)
--- NOTE | 2018-03-16 08:48 | EKG ---
Test Reason : Blood Pressure : / mmHG Vent. Rate : 062 BPM Atrial Rate : 062 BPM P-R Int : 128 ms QRS Dur : 088 ms QT Int : 398 ms P-R-T Axes : 053 048 039 degrees QTc Int : 403 ms Sinus rhythm with Premature atrial complexes Otherwise normal ECG When compared with ECG of 31-AUG-2017 12:03, Premature atrial complexes are now Present Confirmed by DILSHAD MIR, YURY ([id number]) on 03/16/2018 8:48:06 AM Referred By: Torres LAZARO Confirmed By:YURY YUNG MD
[2018-03-16] MEDS ORDERED: Heparin 1,000 UNITS/ML VIAL ONE (11:11)
[2018-03-16] MEDS ORDERED: Sodium Chloride 0.9% 1,000 ML IV SCH (12:45)
[2018-03-16] MEDS ORDERED: Activase 2 MG VIAL CATH SCH (13:30)
--- NOTE | 2018-03-16 13:51 | PRG ---
DATE OF SERVICE: 03/16/2018 SUBJECTIVE: I saw Ms. Ahuja at dialysis this afternoon. Her vas cath was occluded and the food quality technician was trying to see what could be done next dialyze the patient. OBJECTIVE: VITAL SIGNS: Temperature 97.6, pulse 64, respirations 18, O2 sat 96% on room air, blood pressure 147 /81. HEENT: Unremarkable. NECK: No JVD. CHEST: Fairly clear. CARDIAC: S1 and S2 regular. ABDOMEN: Soft. EXTREMITIES: Edematous. LABORATORY DATA: White blood cell count 5.4, hematocrit 25.7, platelet count 195. Sodium 141, potas sium 3.8, chloride 107, CO2 22, BUN 56, creatinine 10.0, glucose 89. ASSESSMENT: 1. Acute on chronic renal failure. 2. Pulmonary edema. 3. Resolved metabolic acidosis. PLAN: Hopeful dialysis today. Otherwise, she seems stable from a pulmonary status.
--- NOTE | 2018-03-16 14:37 | PRG ---
DATE OF SERVICE: 03/16/2018 SUBJECTIVE: Patient was seen and examined at bedside and overnight events noted. Patient denies any shortness of breath or chest pain or palpitation. No history of nausea or vomiting or diarrhea or f ever or chills or cramps. OBJECTIVE: GENERAL: This is an elderly female in no apparent distress. VITAL SIGNS: Temperature 98.3, pulse 60, respiration 18, blood pressure 155/69. HEENT: Atraumatic, normocephalic. Oral mucosa is moist. NECK: Supple. CARDIOVASCULAR: S1, S2 heard. Rate and rhythm regular. RESPIRATORY: Clear to auscultation. GASTROINTESTINAL: Abdomen is soft. MUSCULOSKELETAL: No tenderness, no edema. DERMATOLOGIC: No skin rash. NEUROLOGIC: Alert and awake and oriented x3. No focal neurologic deficits. Moving all the extremit ies. PSYCHIATRIC: Mood and affect normal. LABORATORY DATA: Potassium is 3.8, BUN 56, creatinine is 10.6. ASSESSMENT AND PLAN: 1. Acute kidney injury most likely secondary to contrast nephropathy and seems like her urine output is better. She made 745 mL of urine yesterday compared to 167 on admission, which seems to have imp rovement, but renal parameters getting worse every day, especially with BUN back to 56. I am plannin g to dialyze her today. Plan is to have 2 hours of dialysis for mainly clearance of toxins and no si gns of uremia yet. 2. Uremic encephalopathy, much better, but since the BUN is rising plan is to have 2 hours of dialys is today with no ultrafiltration. 3. Metabolic acidosis, better with dialysis. 4. Hyperkalemia. 5. Morbid obesity. 6. The patient was advised to have adequate hydration. Edema is controlled. Currently, blood press ure is stable. Plan is to have dialysis as tolerated today for 2 hours. Family was at the bedside. Her sister was at the bedside and all the questions answered and the plan discussed.
[2018-03-17 05:14] LABS: #Eosinphils 0.1 thou/uL (0.0-0.7); #Monocytes 0.7 thou/uL (0.11-0.59); #Neutrophils 3.2 thou/uL (1.40-6.50); %Basophils 0.6 % (0.0-1.0); %Eosinophils 2.6 % (0.0-10.0); %Lymphocytes 19.6 % (21.0-51.0); %Monocytes 14.1 % (0.0-10.0); %Neutrophils 63.1 % (42.0-75.0); Hemoglobin 8.2 g/dL (12.0-16.0); Mean Corpuscular HGB CONC 34.2 g/dL (32.0-36.0); Mean Corpuscular Hemoglobin 32.6 pg (27.0-31.0); Mean Corpuscular Volume 95.2 fl (81.0-99.0); Mean Platelet Volume 7.6 fL (7.4-10.4); Platelet Count 183 thou/uL (130-400); RBC Distribution Width 11.6 % (11.5-14.5); Red Blood Cell (RBC) Count 2.52 mill/uL (4.20-5.40)
[2018-03-17 05:26] LABS: Anion Gap 15 mmol/L (10-20); BUN (Urea Nitrogen) 39 mg/dL (9.8-20.1); Calc. Creatinine Clearance 17 mL/min (70-130); Calcium 8.1 mg/dL (7.8-10.44); Carbon Dioxide 24 mmol/L (22-29); Chloride 105 mmol/L (98-107); Estimated GFR-MDRD 6; Glucose 102 mg/dL (70-105); Potassium 3.5 mmol/L (3.5-5.1); Sodium 140 mmol/L (136-145)
--- NOTE | 2018-03-17 08:44 | PDOC.FM ---
- Subjective Subjective: Patient initially sleeping comfortably in bed. Upon awakening she was AOx2. Per the sister, she was back at her baseline mental status. She denies any further diarrhea. She has been tolerating PO well. She has been voiding more. She denies any dizziness, lightheadedness, chest pain, SOB, weakness, tremor. - Objective MAR Reviewed: Yes Vital Signs & Weight: Vital Signs (12 hours) Temp Pulse Resp BP BP Pulse Ox 03/17/18 07:55 98.8 F 58 L 20 120/60 94 L 03/17/18 04:00 98.7 F 59 L 16 117/57 L 94 L 03/17/18 00:00 98.7 F 60 18 121/58 L 92 L Weight Admit Weight 121.591 kg Weight 120.519 kg Most Recent Monitor Data Heart Rate from ECG 63 NIBP 138/52 NIBP BP-Mean 65 Respiration from ECG 17 SpO2 99 I&O: 03/16/18 03/17/18 03/18/18 06:59 06:59 06:59 Intake Total 1030 1560 Output Total 936 1570 Balance 285 -10 Result Diagrams: 03/17/18 04:50 03/17/18 04:50 <Holli Bey - Last Filed: 03/17/18 08:41> - Objective Vital Signs & Weight: Vital Signs (12 hours) Temp Pulse Pulse Pulse Resp BP BP 03/17/18 10:04 59 L 60 180/64 H 169/72 H 03/17/18 09:02 60 62 129/58 L 167/68 H 03/17/18 08:00 98.8 F 58 L 20 03/17/18 07:55 98.8 F 58 L 20 03/17/18 04:00 98.7 F 59 L 16 BP BP Pulse Ox 03/17/18 10:04 03/17/18 09:02 03/17/18 08:00 03/17/18 07:55 120/60 94 L 03/17/18 04:00 117/57 L 94 L Weight Admit Weight 121.591 kg Weight 120.519 kg Most Recent Monitor Data Heart Rate from ECG 63 NIBP 138/52 NIBP BP-Mean 65 Respiration from ECG 17 SpO2 99 I&O: 03/16/18 03/17/18 03/18/18 06:59 06:59 06:59 Intake Total 1030 1560 Output Total 745 1570 Balance 285 -10 Result Diagrams: 03/17/18 04:50 03/17/18 04:50 <Los Meléndez - Last Filed: 03/17/18 14:03> Phys Exam - Physical Examination Constitutional: NAD HEENT: moist MMs Respiratory: no wheezing, no rales, no rhonchi, clear to auscultation bilateral bradycardic, regular rhythm, no murmur/gallop/rub Gastrointestinal: soft, non-tender, no distention, positive bowel sounds Musculoskeletal: no edema, pulses present Neurological: non-focal, moves all 4 limbs Psychiatric: normal affect Deviation from normal: A&Ox2, to person and place only Skin: normal turgor, cap refill <2 seconds <Holli Bey - Last Filed: 03/17/18 08:41> Dx/Plan (1) Acute metabolic encephalopathy Code(s): G93.41 - METABOLIC ENCEPHALOPATHY Status: Acute (2) Acute renal failure (ARF) Status: Acute QualifierTitle: Acute renal failure type: with acute tubular necrosis Qualified Code(s): N17.0 - Acute kidney failure with tubular necrosis (3) Campylobacter gastroenteritis Code(s): A04.5 - CAMPYLOBACTER ENTERITIS Status: Resolved (4) Hyperchloremia Code(s): E87.8 - OTH DISORDERS OF ELECTROLYTE AND FLUID BALANCE, NEC Status: Acute (5) Metabolic acidosis Code(s): E87.2 - ACIDOSIS Status: Acute (6) Normocytic anemia Code(s): D64.9 - ANEMIA, UNSPECIFIED Status: Acute (7) HLD (hyperlipidemia) Code(s): E78.5 - HYPERLIPIDEMIA, UNSPECIFIED Status: Chronic QualifierTitle: Hyperlipidemia type: unspecified Qualified Code(s): E78.5 - Hyperlipidemia, unspecified (8) HTN (hypertension) Code(s): I10 - ESSENTIAL (PRIMARY) HYPERTENSION Status: Chronic QualifierTitle: Hypertension type: essential hypertension Qualified Code( s): I10 - Essential (primary) hypertension (9) MDD (major depressive disorder) Code(s): F32.9 - MAJOR DEPRESSIVE DISORDER, SINGLE EPISODE, UNSPECIFIED Status : Chronic QualifierTitle: Major depression episode severity: unspecified (10) KEYONNA and COPD overlap syndrome Code(s): G47.33 - OBSTRUCTIVE SLEEP APNEA (ADULT) (PEDIATRIC); J44.9 - CHRONIC OBSTRUCTIVE PULMONARY DISEASE, UNSPECIFIED Status: Chronic (11) PTSD (post-traumatic stress disorder) Code(s): F43.10 - POST-TRAUMATIC STRESS DISORDER, UNSPECIFIED Status: Chronic - Plan Plan: 1. Metabolic encephalopathy likely 2/2 to Uremia Most likely secondary to acute renal failure. Suspected ATN. Patient's mental status has improved significantly after dialysis on 03/14 and 2 hrs of dialysis on 03/16. The patient did have several medications on board initially that could have caused serotonin syndrome that have been held, but it seems that uremia is the most likely culprit at this time due to the patient's improvement with dialysis. - Haldol prn for agitation. - Dr. Fajardo with nephrology on board, appreciate recs 2. Acute renal failure FENa suggests intrinsic etiology, likely ATN due to contrast nephropathy ABG 03/13 showed pH of 7.22; Pt received dialysis on 03/14 for acidosis and her mentation improved. She received 2 hrs of HD again on 03/16. Cr 7.18 this AM with GFR of 6. Electrolytes WNL. - Nephro on board, appreciate recs 3. Possible Serotonin syndrome Mentation and confusion more likely due to uremia. s/p cyproheptadine, has now been d/c'd. - Continue holding serotonin agents, consider restarting some of them pending nephro recs 4. History of CAD. - continue ASA, beta elizabeth. 5. KEYONNA - CPAP at night. 6. MDD/PTSD - Holding home meds at this time due to ARF and ATN - Follow recs of Dr. Fajardo. 7. C. jejuni colitis, resolved Patient was recently admitted for C. jejuni, but it appears this has since resolved. No longer having diarrhea. Stool culture was negative. <Holli Bey - Last Filed: 03/17/18 08:41> Attending Addendum - Attending Addendum Date/Time: 03/17/18 1401 I personally evaluated the patient and discussed the management with Dr. Bey. I agree with the History, Examination, Assessment and Plan documented above with any addition or exceptions noted below. Patient mentation improved later this morning and was able to carry on decent conversation with us. She has been up walking with PT and has done well with that. She overall feels well. Continues to have severe renal injury, creatinine has not significantly improved, but urine output has improved somewhat, so hopefully she is near the point of return of decent renal function. Await further renal recs, otherwise continue current regimen. IV fluids have been stopped. <Los Meléndez - Last Filed: 03/17/18 14:03>
[2018-03-17 08:45] VITALS: BMI 52.2
[2018-03-17] MEDS: Heparin 5,000 UNITS/ML VIAL SC SCH ×3 (12:16→20:56)
--- NOTE | 2018-03-17 12:36 | PRG ---
DATE OF SERVICE: 03/17/2018 SUBJECTIVE: This is a 57-year-old female being seen for acute kidney injury. The patient denies any nausea, vomiting, or chest pain. PHYSICAL EXAMINATION: GENERAL: Patient is awake, alert. VITAL SIGNS: Afebrile, pulse 60, breathing 16, blood pressure 117/57. GENERAL APPEARANCE AND MENTAL STATUS: Fair. HEAD/NECK: Normocephalic. Atraumatic. EYES: EOMI. No deformity. EARS: Clear. No ulcers. NOSE: Intact. No lesions. MOUTH: Clear. No discharge. THROAT: Clear. No exudate. LUNGS: Clear. No crackles. CARDIAC: S1, S2. No rub. ABDOMEN: Benign. BS+. GENITALIA/RECTUM: West absent. BACK/EXTREMITIES: Edema 0+ Ulcer- NEUROLOGICAL: Alert and motor intact. SKIN: Rash- Bruise- LYMPHATICS: Edema- Ulcer- LABORATORY DATA: Hemoglobin 8.2, creatinine 7.1. ASSESSMENT AND RECOMMENDATIONS: 1. Acute kidney injury with chronic kidney disease, slightly improved due to dialysis. 2. Hypertension, stable. The patient is nonoliguric. No urgent indication for dialysis today. We will follow the patient's renal function closely. If renal function does not improve, we will consid er renal replacement therapy.
--- NOTE | 2018-03-17 13:04 | PRG ---
DATE OF SERVICE: 03/17/2018 SUBJECTIVE: Ms. Ahuja is afebrile. OBJECTIVE: VITAL SIGNS: Heart rate in the 50s; respiratory rate is 20; oximetry is 94% on room air; blood press ure is 169/72 at 10:00, earlier this morning was 120/60. LUNGS: Clear. HEART: Regular rhythm. Abdomen: Soft. Intake and output is negative 10 mL with reportedly 1570 mL urine out in the last 24 hours. LABORATORY DATA: White count 5, hemoglobin 8.2, and platelets 183,000. Sodium 140, potassium 3.5, c hloride 105, bicarbonate 24, BUN 39, and creatinine 7.18. IMPRESSION AND PLAN: 1. Encephalopathy, resolved. 2. Acute on chronic renal failure. She is still being dialyzed. Given her ultrasound findings even if she manages to be dialysis free for a while, she will have to be followed very closely and will l ikely need dialysis perhaps in the near future. We will continue to follow.
[2018-03-17 13:28] LABS: ANA Symphony (Qualitative) Negative (Negative); ANA Symphony (Quantitative) Less than 0.07 Ratio (<0.7 Negative); dsDNA IgG Antibody Less than 0.5 IU/mL (<10 Negative)
[2018-03-18 05:34] LABS: Anion Gap 18 mmol/L (10-20); BUN (Urea Nitrogen) 39 mg/dL (9.8-20.1); Calc. Creatinine Clearance 18 mL/min (70-130); Calcium 8.4 mg/dL (7.8-10.44); Carbon Dioxide 22 mmol/L (22-29); Chloride 107 mmol/L (98-107); Estimated GFR-MDRD 6; Glucose 88 mg/dL (70-105); Sodium 143 mmol/L (136-145)
[2018-03-18 05:46] LABS: Band 3 % (5-11); Eosinophils 1 % (0-10); Hemoglobin 8.3 g/dL (12.0-16.0); Lymphocytes 28 % (21-51); MDiff Complete? YES; Mean Corpuscular HGB CONC 33.2 g/dL (32.0-36.0); Mean Corpuscular Hemoglobin 32.3 pg (27.0-31.0); Mean Corpuscular Volume 97.2 fl (81.0-99.0); Mean Platelet Volume 7.7 fL (7.4-10.4); Monocytes 11 % (0-10); Neutrophil 55 % (42-75); PLT Morphology Comment Appears Adequate; Platelet Count 195 thou/uL (130-400); RBC Distribution Width 11.4 % (11.5-14.5); Red Blood Cell (RBC) Count 2.56 mill/uL (4.20-5.40); White Blood Cell (WBC) Count 5.2 thou/uL (4.8-10.8)
--- NOTE | 2018-03-18 08:44 | PDOC.FM ---
- Subjective Subjective: Patient doing well this AM. She reports that she has been up walking around and having no difficulty with balance. She has been tolerating PO well. She denies any abdominal pain/N/V/D. Her sister denies her having any change in mentation and reports that she is at her mental baseline. - Objective MAR Reviewed: Yes Vital Signs & Weight: Vital Signs (12 hours) Temp Pulse Resp BP Pulse Ox 03/18/18 04:38 98.7 F 59 L 18 174/71 H 94 L 03/17/18 21:11 98.9 F 57 L 20 128/59 L 93 L Weight Admit Weight 121.591 kg Weight 119.386 kg Most Recent Monitor Data Heart Rate from ECG 63 NIBP 138/52 NIBP BP-Mean 65 Respiration from ECG 17 SpO2 99 I&O: 03/17/18 03/18/18 03/19/18 06:59 06:59 06:59 Intake Total 1560 200 Output Total 1570 1450 Balance -10 -1250 Result Diagrams: 03/18/18 04:45 03/18/18 04:45 <Holli Bey - Last Filed: 03/18/18 08:42> - Objective Vital Signs & Weight: Vital Signs (12 hours) Temp Pulse Resp BP BP BP Pulse Ox 03/18/18 12:56 98.1 F 56 L 16 135/63 93 L 03/18/18 08:00 97.9 F 73 18 160/68 H 93 L 03/18/18 04:38 98.7 F 59 L 18 174/71 H 94 L Weight Admit Weight 121.591 kg Weight 119.386 kg Most Recent Monitor Data Heart Rate from ECG 63 NIBP 138/52 NIBP BP-Mean 65 Respiration from ECG 17 SpO2 99 I&O: 03/17/18 03/18/18 03/19/18 06:59 06:59 06:59 Intake Total 1560 200 Output Total 1570 1450 Balance -10 -1250 Result Diagrams: 03/18/18 04:45 03/18/18 04:45 <Jose Lema - Last Filed: 03/18/18 13:14> Phys Exam - Physical Examination Constitutional: NAD HEENT: moist MMs Respiratory: no wheezing, no rales, no rhonchi, clear to auscultation bilateral Cardiovascular: RRR, no significant murmur, no rub Gastrointestinal: soft, non-tender, no distention, positive bowel sounds Musculoskeletal: no edema, pulses present Neurological: non-focal, moves all 4 limbs Psychiatric: normal affect, A&O x 3 Skin: no rash, cap refill <2 seconds <Holli Bey - Last Filed: 03/18/18 08:42> Dx/Plan (1) Acute metabolic encephalopathy Code(s): G93.41 - METABOLIC ENCEPHALOPATHY Status: Acute (2) Acute renal failure (ARF) Status: Acute QualifierTitle: Acute renal failure type: with acute tubular necrosis Qualified Code(s): N17.0 - Acute kidney failure with tubular necrosis (3) Campylobacter gastroenteritis Code(s): A04.5 - CAMPYLOBACTER ENTERITIS Status: Resolved (4) Hyperchloremia Code(s): E87.8 - OTH DISORDERS OF ELECTROLYTE AND FLUID BALANCE, NEC Status: Acute (5) Metabolic acidosis Code(s): E87.2 - ACIDOSIS Status: Acute (6) Normocytic anemia Code(s): D64.9 - ANEMIA, UNSPECIFIED Status: Acute (7) HLD (hyperlipidemia) Code(s): E78.5 - HYPERLIPIDEMIA, UNSPECIFIED Status: Chronic QualifierTitle: Hyperlipidemia type: unspecified Qualified Code(s): E78.5 - Hyperlipidemia, unspecified (8) HTN (hypertension) Code(s): I10 - ESSENTIAL (PRIMARY) HYPERTENSION Status: Chronic QualifierTitle: Hypertension type: essential hypertension Qualified Code( s): I10 - Essential (primary) hypertension (9) MDD (major depressive disorder) Code(s): F32.9 - MAJOR DEPRESSIVE DISORDER, SINGLE EPISODE, UNSPECIFIED Status : Chronic QualifierTitle: Major depression episode severity: unspecified (10) KEYONNA and COPD overlap syndrome Code(s): G47.33 - OBSTRUCTIVE SLEEP APNEA (ADULT) (PEDIATRIC); J44.9 - CHRONIC OBSTRUCTIVE PULMONARY DISEASE, UNSPECIFIED Status: Chronic (11) PTSD (post-traumatic stress disorder) Code(s): F43.10 - POST-TRAUMATIC STRESS DISORDER, UNSPECIFIED Status: Chronic - Plan Plan: 1. Metabolic encephalopathy likely 2/2 to Uremia Most likely secondary to acute renal failure. Suspected ATN. Patient's mental status has improved significantly after dialysis on 03/14 and 2 hrs of dialysis on 03/16. The patient did have several medications on board initially that could have caused serotonin syndrome that have been held, but it seems that uremia is the most likely culprit at this time due to the patient's improvement with dialysis. - Haldol prn for agitation. - Dr. Garcia with nephrology on board, appreciate recs 2. Acute renal failure FENa suggests intrinsic etiology, likely ATN due to contrast nephropathy ABG 03/13 showed pH of 7.22; Pt received dialysis on 03/14 for acidosis and her mentation improved. She received 2 hrs of HD again on 03/16. Cr 6.73 this AM with GFR of 6, improved from yesterday. Electrolytes WNL. - Nephro on board, appreciate recs 3. Possible Serotonin syndrome Mentation and confusion more likely due to uremia. s/p cyproheptadine, has now been d/c'd. - Continue holding serotonin agents, consider restarting once kidney function is improved. 4. History of CAD. - continue ASA, beta elizabeth. 5. KEYONNA - CPAP at night. 6. MDD/PTSD - Holding home meds at this time due to ARF and ATN - Follow recs of Dr. Garcia 7. C. jejuni colitis, resolved Patient was recently admitted for C. jejuni, but it appears this has since resolved. No longer having diarrhea. Stool culture was negative. <Holli Bey - Last Filed: 03/18/18 08:42> Attending Addendum - Attending Addendum Date/Time: 03/18/18 1310 I personally evaluated the patient and discussed the management with Dr. Bey I agree with the History, Examination, Assessment and Plan documented above with any addition or exceptions noted below. Patient with improved mental status RFT's improved continue to advance activity and monitor RFT's appreciate Nephrology recommendations. Will need close outpatient f/u with Dr Zapata and Nephrology upon dismissal and patient anf family endorse understanding. <Jose Lema - Last Filed: 03/18/18 13:14>
[2018-03-18] MEDS: Heparin 5,000 UNITS/ML VIAL SC SCH ×3 (08:50→21:13)
--- NOTE | 2018-03-18 10:28 | PRG ---
DATE OF SERVICE: 03/18/2018 SUBJECTIVE: This is a 57-year-old female being seen for acute kidney injury. The patient denies any nausea, vomiting, or chest pain. PHYSICAL EXAMINATION: GENERAL: Patient is awake, alert. VITAL SIGNS: Afebrile, pulse 70, breathing 16, blood pressure 122/50. OBJECTIVE: See above. Awake, alert, in no acute distress. GENERAL APPEARANCE AND MENTAL STATUS: Fair. HEAD/NECK: Normocephalic. Atraumatic. EYES: EOMI. No deformity. EARS: Clear. No ulcers. NOSE: Intact. No lesions. MOUTH: Clear. No discharge. THROAT: Clear. No exudate. LUNGS: Clear. No crackles. CARDIAC: S1, S2. No rub. ABDOMEN: Benign. BS+. GENITALIA/RECTUM: West absent. BACK/EXTREMITIES: Edema 0+ Ulcer- NEUROLOGICAL: Alert and motor intact. SKIN: Rash- Bruise- LYMPHATICS: Edema- Ulcer- LABORATORY: Hemoglobin 8.3, creatinine 6.9. ASSESSMENT AND RECOMMENDATIONS: 1. Acute kidney injury. 2. Hypertension, stable. 3. Anemia, stable. 4. Hyperkalemia, stable. No urgent indication for dialysis. I would recommend removing temporary catheter.
--- NOTE | 2018-03-18 14:42 | PRG ---
DATE OF SERVICE: 03/18/2018 SUBJECTIVE: Cherry Ahuja was seen again today. She did not require dialysis. It is anticipated th at her catheter will be removed tomorrow. OBJECTIVE: LUNGS: Clear. HEART: Regular rhythm. ABDOMEN: Soft. Her creatinine is coming down slowly. Her renal function is still quite abnormal for creatinine michelle carlota standpoint. She will be followed closely as an outpatient. I have explained to her sister that it is highly like ly at some point in the future this year, she will require dialysis, but hopefully I am wrong. Her r enal cortical thinning and her fairly dramatic presentation with a markedly elevated creatinine with very limited prodrome leading up to this argues that this has been a chronic decline and just aggress grant intervention and hydration has lead to improvement. I will be happy to see her in the future. Ivett ortiz will sign off.
[2018-03-18 16:16] LABS: Cytoplasmic (C-ANCA) <1:20 titer (Neg:<1:20); Myeloperoxidase AutoAbs <9.0 U/mL (0.0-9.0); Perinuclear (P-ANCA) <1:20 titer (Neg:<1:20); Proteinase-3 AutoAbs Less than 3.5 U/mL (0.0-3.5)
[2018-03-18] MEDS ORDERED: hydrALAZINE 20 MG/ML VIAL SLOW IVP PRN (17:31)
[2018-03-19 06:05] LABS: #Eosinphils 0.1 thou/uL (0.0-0.7); #Lymphocytes 0.9 thou/uL (1.20-3.40); #Monocytes 0.6 thou/uL (0.11-0.59); #Neutrophils 3.6 thou/uL (1.40-6.50); %Basophils 0.4 % (0.0-1.0); %Lymphocytes 17.2 % (21.0-51.0); %Monocytes 12.2 % (0.0-10.0); %Neutrophils 68.1 % (42.0-75.0); Hemoglobin 8.2 g/dL (12.0-16.0); Mean Corpuscular Hemoglobin 32.5 pg (27.0-31.0); Mean Corpuscular Volume 95.5 fl (81.0-99.0); Mean Platelet Volume 7.5 fL (7.4-10.4); Platelet Count 209 thou/uL (130-400); RBC Distribution Width 11.5 % (11.5-14.5); Red Blood Cell (RBC) Count 2.52 mill/uL (4.20-5.40); White Blood Cell (WBC) Count 5.3 thou/uL (4.8-10.8)
[2018-03-19 06:15] LABS: Anion Gap 16 mmol/L (10-20); BUN (Urea Nitrogen) 40 mg/dL (9.8-20.1); Calc. Creatinine Clearance 22 mL/min (70-130); Calcium 8.7 mg/dL (7.8-10.44); Carbon Dioxide 27 mmol/L (22-29); Chloride 105 mmol/L (98-107); Estimated GFR-MDRD 8; Glucose 93 mg/dL (70-105); Potassium 3.6 mmol/L (3.5-5.1); Sodium 144 mmol/L (136-145)
[2018-03-19 08:03] VITALS: TEMP 98.4
[2018-03-19] MEDS: Heparin 5,000 UNITS/ML VIAL SC SCH (08:09)
--- NOTE | 2018-03-19 08:21 | PDOC.FM ---
- Subjective Subjective: Patient doing well this AM. She was sitting up in bed upon my examination. AOx3. The patient reports no pain. She is tolerating PO well and voiding without difficulty. She denies any SOB or CP. - Objective MAR Reviewed: Yes Vital Signs & Weight: Vital Signs (12 hours) Temp Pulse Resp BP BP Pulse Ox 03/19/18 08:01 98.4 F 52 L 18 170/72 H 95 03/19/18 05:00 98.6 F 58 L 12 162/63 H 92 L Weight Admit Weight 121.591 kg Weight 117.934 kg Most Recent Monitor Data Heart Rate from ECG 63 NIBP 138/52 NIBP BP-Mean 65 Respiration from ECG 17 SpO2 99 I&O: 03/18/18 03/19/18 03/20/18 06:59 06:59 06:59 Intake Total 200 830 Output Total 1450 1100 Balance -1250 -270 Result Diagrams: 03/19/18 05:40 03/19/18 05:40 <Holli Bey - Last Filed: 03/19/18 08:14> - Objective Vital Signs & Weight: Vital Signs (12 hours) Temp Pulse Resp BP BP Pulse Ox 03/19/18 08:01 98.4 F 52 L 18 170/72 H 95 03/19/18 08:00 98.4 F 52 L 18 03/19/18 05:00 98.6 F 58 L 12 162/63 H 92 L Weight Admit Weight 121.591 kg Weight 117.934 kg Most Recent Monitor Data Heart Rate from ECG 63 NIBP 138/52 NIBP BP-Mean 65 Respiration from ECG 17 SpO2 99 I&O: 03/18/18 03/19/18 03/20/18 06:59 06:59 06:59 Intake Total 200 830 Output Total 1450 1100 Balance -1250 -270 Result Diagrams: 03/19/18 05:40 03/19/18 05:40 <Jose Lema - Last Filed: 03/19/18 11:25> Phys Exam - Physical Examination Constitutional: NAD HEENT: moist MMs Respiratory: no wheezing, no rales, no rhonchi, clear to auscultation bilateral Cardiovascular: RRR, no significant murmur, no rub Gastrointestinal: soft, non-tender, no distention, positive bowel sounds Musculoskeletal: pulses present, edema present (2+ pitting edema in BLE) Neurological: non-focal, normal sensation, moves all 4 limbs Psychiatric: normal affect, A&O x 3 Skin: normal turgor, cap refill <2 seconds <Holli Bey - Last Filed: 03/19/18 08:14> Dx/Plan (1) Acute metabolic encephalopathy Code(s): G93.41 - METABOLIC ENCEPHALOPATHY Status: Acute (2) Acute renal failure (ARF) Status: Acute QualifierTitle: Acute renal failure type: with acute tubular necrosis Qualified Code(s): N17.0 - Acute kidney failure with tubular necrosis (3) Campylobacter gastroenteritis Code(s): A04.5 - CAMPYLOBACTER ENTERITIS Status: Resolved (4) Hyperchloremia Code(s): E87.8 - OTH DISORDERS OF ELECTROLYTE AND FLUID BALANCE, NEC Status: Acute (5) Metabolic acidosis Code(s): E87.2 - ACIDOSIS Status: Acute (6) Normocytic anemia Code(s): D64.9 - ANEMIA, UNSPECIFIED Status: Acute (7) HLD (hyperlipidemia) Code(s): E78.5 - HYPERLIPIDEMIA, UNSPECIFIED Status: Chronic QualifierTitle: Hyperlipidemia type: unspecified Qualified Code(s): E78.5 - Hyperlipidemia, unspecified (8) HTN (hypertension) Code(s): I10 - ESSENTIAL (PRIMARY) HYPERTENSION Status: Chronic QualifierTitle: Hypertension type: essential hypertension Qualified Code( s): I10 - Essential (primary) hypertension (9) MDD (major depressive disorder) Code(s): F32.9 - MAJOR DEPRESSIVE DISORDER, SINGLE EPISODE, UNSPECIFIED Status : Chronic QualifierTitle: Major depression episode severity: unspecified (10) KEYONNA and COPD overlap syndrome Code(s): G47.33 - OBSTRUCTIVE SLEEP APNEA (ADULT) (PEDIATRIC); J44.9 - CHRONIC OBSTRUCTIVE PULMONARY DISEASE, UNSPECIFIED Status: Chronic (11) PTSD (post-traumatic stress disorder) Code(s): F43.10 - POST-TRAUMATIC STRESS DISORDER, UNSPECIFIED Status: Chronic - Plan Plan: 1. Metabolic encephalopathy likely 2/2 to Uremia Likely 2/2 acute renal failure. Suspected ATN. Patient's mental status has improved significantly after dialysis on 03/14 and 2 hrs of dialysis on 03/16. The patient did have several medications on board initially that could have caused serotonin syndrome that have been held, but it seems that uremia is the most likely culprit at this time due to the patient's improvement with dialysis. - Haldol prn for agitation. - Dr. Garcia with nephrology on board, appreciate recs 2. Acute renal failure FENa suggests intrinsic etiology, likely ATN due to contrast nephropathy ABG 03/13 showed pH of 7.22; Pt received dialysis on 03/14 for acidosis and her mentation improved. She received 2 hrs of HD again on 03/16. Cr 5.44 this AM with GFR of 8, improved from yesterday. Electrolytes WNL. - Nephro on board, appreciate recs - Dietitian consult for education regarding renal diet 3. Possible Serotonin syndrome Mentation and confusion more likely due to uremia. s/p cyproheptadine, has now been d/c'd. - Continue holding serotonin agents, consider restarting once kidney function is improved. 4. History of CAD. - continue ASA, beta elizabeth. 5. KEYONNA - CPAP at night. 6. MDD/PTSD - Holding home meds at this time due to ARF and ATN - Follow recs of Dr. Garcia 7. C. jejuni colitis, resolved Patient was recently admitted for C. jejuni, but it appears this has since resolved. No longer having diarrhea. Stool culture was negative. Dispo: Plan for discharge today with removal of temporary dialysis catheter. Patient already has appt scheduled with Dr. Zapata on Saturday morning and Dr. Fajardo on Saturday for follow-up. <Holli Bey - Last Filed: 03/19/18 08:14> Attending Addendum - Attending Addendum Date/Time: 03/19/18 1122 I personally evaluated the patient and discussed the management with Dr. Bey I agree with the History, Examination, Assessment and Plan documented above with any addition or exceptions noted below. Stable for dismissal today f/u with Dr Garcia and Benny, lab for Saturday reports to Nephrology and primary care.Patient lucid with marked recovery aware to not pursue contrast procedures in the future without Nephrology approval. <Jose Lema - Last Filed: 03/19/18 11:25>
--- NOTE | 2018-03-19 11:40 | PRG ---
DATE OF SERVICE: 03/19/2018 SUBJECTIVE: This is a 47-year-old female being seen for acute kidney injury. Patient denies any ollie sea, vomiting, or chest pain. PHYSICAL EXAMINATION: GENERAL: Patient is awake, alert. VITAL SIGNS: Afebrile, pulse 52, breathing 16, blood pressure 160/63. GENERAL APPEARANCE AND MENTAL STATUS: Fair. HEAD/NECK: Normocephalic. Atraumatic. EYES: EOMI. No deformity. EARS: Clear. No ulcers. NOSE: Intact. No lesions. MOUTH: Clear. No discharge. THROAT: Clear. No exudate. LUNGS: Clear. No crackles. CARDIAC: S1, S2. No rub. ABDOMEN: Benign. BS+. GENITALIA/RECTUM: West absent. BACK/EXTREMITIES: Edema 0+. Ulcer- NEUROLOGICAL: Alert and motor intact. SKIN: Rash-. Bruise-. LYMPHATICS: Edema-. Ulcer- LABORATORY DATA: Hemoglobin 8.2. Creatinine 5.4. ASSESSMENT: 1. Acute kidney injury, improved. 2. Hypertension, stable. 3. Anemia, stable. 4. Metabolic acidosis, stable. No indication for dialysis at this time. Patient will follow up to see Dr. Fajardo in 3-4 days.
[2018-03-19 13:16] VITALS: BP 134/53
--- NOTE | 2018-03-21 04:25 | DIS-2 ---
DATE OF ADMISSION: 03/12/2018 DATE OF DISCHARGE: 03/19/2018 ADMITTING RESIDENT: Anisha Frances D.O. DISCHARGE RESIDENT. Holli Bey M.D. ADMITTING ATTENDING: Magalis Gusman M.D. DISCHARGE ATTENDING: Jose Lema M.D. CONSULTATIONS: Dr. Fajardo with Nephrology, Dr. Ordaz with Neurology and Dr. Daily with Pulmonolog y. PROCEDURES: 1. Right femoral temporary dialysis catheter placement on 03/13/2018. 2. Hemodialysis on 03/14/2018 and 03/16/2018. PRIMARY DIAGNOSES: 1. Metabolic encephalopathy. 2. Acute renal failure. 3. Acute tubular necrosis. 4. Uremia. 5. Metabolic acidosis. SECONDARY DIAGNOSES: 1. Campylobacter jejuni infection. 2. Chronic kidney disease 3. 3. Post-traumatic stress disorder. 4. Hypertension. DISCHARGE MEDICATIONS: Metoprolol succinate 25 mg p.o. daily. DISCONTINUED MEDICATIONS: 1. Lisinopril 10 mg p.o. daily. 2. Lovastatin 40 mg p.o. at bedtime. 3. Alprazolam 0.5 mg p.o. b.i.d. 4. Potassium chloride 10 mEq p.o. daily. 5. Topiramate 100 mg p.o. at bedtime. 6. Gabapentin 1.5 tabs p.o. t.i.d. 7. Hydrochlorothiazide 12.5 mg p.o. at bedtime. 8. Omeprazole 40 mg p.o. daily. 9. Trintellix 10 mg p.o. daily. 10. Trazodone 100 mg p.o. at bedtime. 11. Ciprofloxacin 750 mg p.o. b.i.d. 12. Bentyl 20 mg p.o. q.i.d. p.r.n. HISTORY OF PRESENT ILLNESS AND HOSPITAL COURSE: This is a 57-year-old female who was recently discha rged from the hospital for a Campylobacter jejuni infection on Cipro and Bentyl, who presented due to worsening altered mental status with agitation and aggression as well as decreased urination. There was initial concern that patient might be in serotonin syndrome due to some increased tics, so all o f the patient's medications were discontinued as there were a few serotonergic medications as well as some medications affecting renal function. The patient was found initially to have a creatinine of 10.6 and a BUN of 53 along with a GFR of 4. The patient continued to be aggressive and required Geod on. There were no signs or symptoms of infection at this time. On 03/13/2018, the patient had a tem porary dialysis catheter placed and she received dialysis on 03/14/2018. The patient's mentation imp roved significantly after this as well as her kidney function. She then started having worsening of her kidney function again up to 10.65 and she received dialysis again on 03/16/2018 and her creatinin e down trended on 03/17 to 7.18. At this time, the patient was back to her mental baseline and becam e alert and oriented x3 and had no recollection of prior events. The patient's BUN down-trended to 3 9. Her GFR up-trended to 6 and then to 8. The patient's creatinine continued to downtrend until on 03/19/2018 it was down to 5.44. The patient's electrolytes remained stable throughout the entire hos pitalization. The exception is initially the patient had a metabolic acidosis; however, this resolve d after the initial treatment with dialysis. The patient did have an elevated BNP to 1350. However, the patient had an echocardiogram done that showed an ejection fraction of 65-74%. The patient had poor urine output for the several days; however, starting around the , this started to improve an d continued to improve throughout the rest of the hospitalization. Per Nephrology, the most likely c ause of the patient's acute renal failure was a contrast nephropathy from contrast she received durin g her prior hospitalization. The patient will likely need to be followed long-term by Nephrology due to this episode of acute renal failure on top of her chronic kidney disease stage 3. All of the pat ient's JASSON and antiglomerular basement membrane labs came back negative. Her renal ultrasound showed mild renal cortical thinning bilaterally, likely reflective of underlying chronic medical renal dise ase, but with no hydronephrosis or solid renal lesion. Overall, the patient required a close outpati ent followup. Prior to discharge, the patient had already arranged an appointment with Dr. Zapata, her PCP for 2 days and after discharge and with Dr. Fajardo for the next Saturday. It was passed neida g to Dr. Zapata already to check a BMP at that appointment to monitor kidney function and all of the patient's blood pressure medicines had been held except the metoprolol as well as all of her other m edications. The patient was given instructions regarding a renal diet prior to discharge as well. T he temporary dialysis catheter was removed on the day of discharge. DISPOSITION: Stable. DISCHARGE INSTRUCTIONS: 1. Location: Home. 2. Diet: Renal. 3. Activity: As tolerated. 4. Follow up with Dr. Zapata within [address] Fajardo within 7 days.
== END 2018-03-19 13:09 | disposition home or self-care (01) | DRG 682 ==
LOC: ERS 18:20 → IMCU/EMU 20:20 → CCU 03-13 21:36 → 2NO 03-15 15:52
PROVIDERS: ADMIT Family Medicine; ATTEND Family Medicine
PROC: 06HM33Z Insertion of Infusion Device into Right Femoral Vein, Percutaneous Approach (ICD-10-PCS; principal; 2018-03-13)
PROC: 5A1D70Z Performance of Urinary Filtration, Intermittent, Less than 6 Hours Per Day (ICD-10-PCS; 2018-03-16)
DX: N17.9 Acute kidney failure, unspecified (principal); G93.40 Encephalopathy, unspecified; A04.5 Campylobacter enteritis; J81.1 Chronic pulmonary edema; E87.2 Acidosis; Z68.43 Body mass index [BMI] 50.0-59.9, adult; E66.01 Morbid (severe) obesity due to excess calories; E87.5 Hyperkalemia; D64.9 Anemia, unspecified; N18.9 Chronic kidney disease, unspecified; I12.9 Hypertensive chronic kidney disease with stage 1 through stage 4 chronic kidney disease, or unspecified chronic kidney disease; N18.3 Chronic kidney disease, stage 3 (moderate); F43.10 Post-traumatic stress disorder, unspecified; G47.33 Obstructive sleep apnea (adult) (pediatric); F32.9 Major depressive disorder, single episode, unspecified; E83.39 Other disorders of phosphorus metabolism
CPT/HCPCS: 36415; 70450; 71045; 74176; 76770; 80048; 80053; 80306; 80307; 81003; 81015; 82140; 82550; 82570; 82805; 83010; 83516; 83520; 83605; 83615; 83735; 83880; 83930; 83935; 84100; 84156; 84300; 84443; 85025; 85046; 85060; 86038; 86225; 86256; 86706; 87040; 87045; 87046; 87077; 87086; 87186; 87324; 87340; 87449; 87899; 90935; 93005; 93010; 93306; 96372; 96374; A4216; C1752; G0257; G8978-GP-CJ; G8979-GP-CJ; G8980-GP-CJ; G8987-GO-CI; G8988-GO-CI; G8989-GO-CI; J1630; J1644; J2060; J2997; J3360; J3486; J7070

== ENCOUNTER 2018-07-19 11:30 | Emergency (ER) | payer MEDICARE, MEDICAID ==
[2018-07-19 12:34] LABS: #Basophils 0.1 thou/uL (0.0-0.2); #Eosinphils 0.1 thou/uL (0.0-0.7); #Lymphocytes 1.8 thou/uL (1.20-3.40); #Monocytes 0.7 thou/uL (0.11-0.59); #Neutrophils 2.8 thou/uL (1.40-6.50); %Basophils 1.4 % (0.0-1.0); %Eosinophils 2.3 % (0.0-10.0); %Lymphocytes 32.9 % (21.0-51.0); %Monocytes 13.3 % (0.0-10.0); %Neutrophils 50.1 % (42.0-75.0); Hemoglobin 11.8 g/dL (12.0-16.0); Mean Corpuscular HGB CONC 33.3 g/dL (32.0-36.0); Mean Corpuscular Hemoglobin 28.2 pg (27.0-31.0); Mean Corpuscular Volume 84.7 fL (78.0-98.0); Platelet Count 187 thou/uL (130-400); White Blood Cell (WBC) Count 5.6 thou/uL (4.8-10.8)
[2018-07-19] MEDS ORDERED: HYDROcodone/Acetaminophen 10/325 mg Tablet ONE (12:42)
[2018-07-19 12:44] LABS: ALT (SGPT) 13 U/L (8-55); AST (SGOT) 15 U/L (5-34); Albumin 3.7 g/dL (3.5-5.0); Alkaline Phosphatase 131 U/L (40-150); Anion Gap 14 mmol/L (10-20); BUN (Urea Nitrogen) 20 mg/dL (9.8-20.1); Bilirubin, Total 0.3 mg/dL (0.2-1.2); CRP (Inflammatory) 1.45 mg/dL (= or < 0.5); Calc. Creatinine Clearance 0 mL/min (70-130); Calcium 9.4 mg/dL (7.8-10.44); Carbon Dioxide 28 mmol/L (22-29); Chloride 104 mmol/L (98-107); Estimated GFR-MDRD 58; Glucose 95 mg/dL (70-105); Potassium 4.7 mmol/L (3.5-5.1); Protein, Total 6.7 g/dL (6.0-8.3); Sodium 141 mmol/L (136-145)
--- NOTE | 2018-07-19 14:08 | RAD ---
LEFT FOOT 3 VIEWS: HISTORY: Left foot pain. FINDINGS: There is an enthesophyte from the plantar calcaneus. Tarsals appear intact. Metatarsals and phalang es are intact. MTP and IP joints unremarkable. IMPRESSION: Enthesophyte from a plantar calcaneus. No other osseous abnormality. POS: [facility]
== END 2018-07-19 13:30 | disposition home or self-care (01) ==
LOC: SCSER 11:30
DX: M77.32 Calcaneal spur, left foot (principal); E66.9 Obesity, unspecified; E78.5 Hyperlipidemia, unspecified; I10 Essential (primary) hypertension; I25.10 Atherosclerotic heart disease of native coronary artery without angina pectoris; F17.210 Nicotine dependence, cigarettes, uncomplicated; F41.9 Anxiety disorder, unspecified; F32.9 Major depressive disorder, single episode, unspecified; Z79.899 Other long term (current) drug therapy
CPT/HCPCS: 80053; 84550; 85025; 85652; 86140

== ENCOUNTER 2018-11-21 08:42 | Outpatient (CLI) | payer MEDICARE, MEDICAID ==
--- NOTE | 2018-11-21 11:25 | RAD ---
FOUR VIEWS LUMBOSACRAL SPINE WITH FLEXION AND EXTENSION: History: Lumbosacral radiculopathy. FINDINGS: AP, lateral, and flexion/extension views of the lumbosacral spine were performed. The vertebral britatny s demonstrate normal height and alignment without fracture or subluxation. Minimal degenerative amin es are seen in the upper lumbar spine. Cholecystectomy clips are seen. Alignment is unchanged with fl exion and extension. IMPRESSION: Mild degenerative changes with unchanged alignment with bending. POS: [facility]
--- NOTE | 2018-11-21 14:01 | MRI ---
MRI LUMBAR SPINE WITHOUT CONTRAST: HISTORY: M53.16, lumbar radiculopathy. COMPARISON: Radiographs same day. FINDINGS: The aortic contour is nonaneurysmal. No retroperitoneal adenopathy. No paraspinal muscle atrophy. The conus medullaris terminates near the inferior end plate of L1. Levels are as follows: T12-L1: There appears to be an old disk extrusion at T12-L1 wit caudate migration along the posterio r longitudinal ligament. This is predominantly central in nature and narrowing the spinal canal to a pproximately 6 mm. No significant neural foraminal narrowing. L1-2: Small right paracentral posterior disk-osteophyte complex. No significant neural foraminal or spinal canal narrowing. L2-3: Low-grade disk desiccation. Mild facet arthropathy. No neural foraminal or spinal canal narr owing. L3-4: Normal disk. Very small bilateral subforaminal disk-osteophyte complexes. No neural foramina l or spinal canal narrowing. L4-5: Very small bilateral subforaminal posterior disk-osteophyte complexes. No significant neural foraminal or spinal canal narrowing. L5-S1: Mild posterior degenerative disk space height loss. Very small central posterior disk protru natalie. No significant neural foraminal or spinal canal narrowing. IMPRESSION: 1. No significant neural foraminal or spinal canal narrowing throughout the lumbar spine. 2. Likely an old disk sequestration at T12-L1 with caudal migration narrowing the spinal canal to ap proximately 6 mm. POS: [facility]
== END 2018-11-21 08:43 | disposition home or self-care (01) ==
LOC: SCSMRI 08:42
PROVIDERS: ATTEND Surgery
DX: M47.26 Other spondylosis with radiculopathy, lumbar region (principal)
CPT/HCPCS: 72120; 72148

== ENCOUNTER 2019-04-28 10:42 | Outpatient (CLI) | payer MEDICARE, MEDICAID ==
--- NOTE | 2019-04-28 12:05 | MMO ---
Bilateral MAMMO Bilat Screen [facility]. CLINICAL HISTORY: Patient is 58 years old and is seen for screening. The patient has the following family history of breast cancer: paternal aunt. The patient has no personal history of cancer. VIEWS: The views performed were: bilateral craniocaudal with tomosynthesis and bilateral mediolateral oblique with tomosynthesis. FILMS COMPARED: The present examination has been compared to prior imaging studies performed at [facility] [place] on 07/28/2015, 08/02/2016 and 01/28/2019. MAMMOGRAM FINDINGS: The breasts are almost entirely fat. There are no suspicious masses, suspicious calcifications, or new areas of architectural distortion. IMPRESSION: THERE IS NO MAMMOGRAPHIC EVIDENCE OF MALIGNANCY. A ROUTINE FOLLOW-UP MAMMOGRAM IN 1 YEAR IS RECOMMENDED. THE RESULTS OF THIS EXAM WERE SENT TO THE PATIENT. ACR BI-RADS Category 1 - Negative MAMMOGRAPHY NOTE: 1. A negative mammogram report should not delay a biopsy if a dominant of clinically suspicious mass is present. 2. Approximately 10% to 15% of breast cancers are not detected by mammography. 3. Adenosis and dense breasts may obscure an underlying neoplasm.
== END 2019-04-28 10:43 | disposition home or self-care (01) ==
LOC: BICMAMMO 10:42
PROVIDERS: ATTEND Family Medicine
DX: Z12.31 Encounter for screening mammogram for malignant neoplasm of breast (principal); Z80.3 Family history of malignant neoplasm of breast
CPT/HCPCS: 77063; 77067

== ENCOUNTER 2019-06-03 09:08 | Day surgery (SDC) | payer MEDICARE, MEDICAID ==
[2019-06-02 16:04] VITALS: BMI 50.1
--- NOTE | 2019-06-03 15:01 | OP ---
DATE OF PROCEDURE: 06/03/2019 PROCEDURE PERFORMED: Colonoscopy with polypectomy. PREPROCEDURE DIAGNOSIS: Personal history of colon polyps, last colonoscopy 6 years ago. POSTPROCEDURE DIAGNOSES: 1. Five polyps ranging in size from 7 to 3 mm, scattered throughout the ascending and descending colon, all removed by hot snare polypectomy and submitted to Pathology. 2. Diverticulosis coli with no inflammation. 3. Small internal hemorrhoids. RECOMMENDATIONS: Repeat colonoscopy in 3 years. ANESTHESIA: TIVA. PROCEDURE IN DETAIL: After the patient was informed of risks, benefits, and possible complications of endoscopy including perforation, reaction to medication, and aspiration, informed consent was obtained. The patient was brought to endoscopy suite, where she was sedated in standard fashion. Once she was comfortable, rectal exam was performed. The endoscope was inserted into the anal canal through the colon. The cecum was identified by ileocecal valve and appendiceal orifice. The scope was then slowly removed. The prep was very good. Multiple polyps were noted and photodocumentation was obtained. These were removed by hot snare polypectomy and sent to Pathology. Retroflexed views in the rectum were normal. The patient was then brought to recovery room in stable condition. Job ID: [id number]
[2019-06-03] MEDS ORDERED: PROPOFOL 200 MG/20 ML VIAL ONE (16:58)
== END 2019-06-03 14:45 | disposition home or self-care (01) ==
LOC: SDC 09:08
PROVIDERS: ATTEND Internal Medicine Gastroenterology
PROC: 0DBH8ZX Excision of Cecum, Via Natural or Artificial Opening Endoscopic, Diagnostic (ICD-10-PCS; principal; 2019-06-03)
PROC: 0DBL8ZX Excision of Transverse Colon, Via Natural or Artificial Opening Endoscopic, Diagnostic (ICD-10-PCS; 2019-06-03)
DX: Z12.11 Encounter for screening for malignant neoplasm of colon (principal); D12.0 Benign neoplasm of cecum; D12.3 Benign neoplasm of transverse colon; K57.30 Diverticulosis of large intestine without perforation or abscess without bleeding; K64.8 Other hemorrhoids; M19.90 Unspecified osteoarthritis, unspecified site; K59.09 Other constipation; I25.10 Atherosclerotic heart disease of native coronary artery without angina pectoris; F32.9 Major depressive disorder, single episode, unspecified; K21.9 Gastro-esophageal reflux disease without esophagitis; E78.00 Pure hypercholesterolemia, unspecified; I10 Essential (primary) hypertension; I25.2 Old myocardial infarction; G47.30 Sleep apnea, unspecified; F17.200 Nicotine dependence, unspecified, uncomplicated; E66.9 Obesity, unspecified; Z68.43 Body mass index [BMI] 50.0-59.9, adult; Z86.010 Personal history of colon polyps; Z83.71 Family history of colonic polyps; Z79.899 Other long term (current) drug therapy; Z98.890 Other specified postprocedural states
CPT/HCPCS: 88305; J2704

== ENCOUNTER 2019-09-02 10:11 | Outpatient (CLI) | payer MEDICARE, MEDICAID ==
[2019-09-02] MEDS ORDERED: ISOVUE-370 76%-LOCM 1 ML ONE (10:12)
--- NOTE | 2019-09-02 15:53 | CT ---
CT ANGIO OF ABDOMEN AND PELVIS AND LOWER EXTREMITIES PERFORMED WITH INTRAVENOUS CONTRAST ENHANCEMENT WITH 3D RECONSTRUCTIONS: HISTORY: Peripherovascular disease. Bilateral lower extremity claudication. FINDINGS: The lung bases are clear. The liver, spleen, and pancreas regions appear unremarkable on this angiographic phase exam. The gal lbladder has been removed. Right and left adrenal glands and right and left kidneys are normal in appearance. No significant pa raaortic adenopathy. No pelvic adenopathy or mass. The abdominal aorta is normal in caliber with mild atherosclerotic change. There is a calcified plaq ue at the origin of the celiac artery. The superior mesenteric artery shows no stenosis. Mild narro wing of the celiac artery origin. There are single renal arteries bilaterally without significant st enosis. There is no aneurysm of the aorta. There is atherosclerotic change more pronounced at the b ifurcation. On the right side, there is a mild to moderate degree of narrowing at the origin of the right common iliac artery with somewhat prominent calcified plaque. The right internal and external iliac arterie s are patent and the right common femoral and profunda femoral arteries are unremarkable. Superficia l femoral artery shows no significant narrowing. The popliteal artery on the right is partially obsc ured by the knee prosthesis. There is 3-vessel runoff to the foot. On the left side, there is mild narrowing of the left common iliac artery. The internal and external iliac arteries are patent and show no significant stenosis. The common femoral and profunda femoral arteries are normal in appearance. No evidence of any significant stenosis of the superficial femor al artery. The popliteal artery is patent and normal in caliber. There is 3-vessel runoff to the fo ot. IMPRESSION: Areas of mild narrowing at the origin of both common iliac arteries. Otherwise, essentially unremark able exam. POS: TPC
== END 2019-09-02 10:12 | disposition home or self-care (01) ==
LOC: BICCT 10:11
PROVIDERS: ATTEND Physician Assistant
DX: I70.213 Atherosclerosis of native arteries of extremities with intermittent claudication, bilateral legs (principal); R06.02 Shortness of breath; I70.8 Atherosclerosis of other arteries
CPT/HCPCS: 75635; Q9966

== ENCOUNTER 2019-09-19 22:10 | Emergency (ER) | payer MEDICARE, MEDICAID ==
[2019-09-19] MEDS ORDERED: Ketorolac Tromethamine 30 MG/ML VIAL ONE (22:33)
--- NOTE | 2019-09-19 22:53 | RAD ---
Exam:Left knee 4 views HISTORY: Pain. Injury. COMPARISON: None FINDINGS: Moderate tricompartmental degenerative change. No fracture. Joint spaces are preserved. IMPRESSION: Moderate tricompartmental degenerative change.
== END 2019-09-19 23:00 | disposition home or self-care (01) ==
LOC: SCSER 22:10
DX: S80.02XA Contusion of left knee, initial encounter (principal); I25.10 Atherosclerotic heart disease of native coronary artery without angina pectoris; E78.5 Hyperlipidemia, unspecified; I10 Essential (primary) hypertension; F17.210 Nicotine dependence, cigarettes, uncomplicated; F41.9 Anxiety disorder, unspecified; Z79.899 Other long term (current) drug therapy; W03.XXXA Other fall on same level due to collision with another person, initial encounter
CPT/HCPCS: 96372; J1885

== ENCOUNTER 2020-01-28 13:07 | Outpatient (CLI) | payer MEDICARE, MEDICAID ==
--- NOTE | 2020-01-28 13:44 | ULT ---
Exam: Bilateral renal ultrasound complete: HISTORY: Chronic kidney disease COMPARISON: 03/12/2018 FINDINGS: Right kidney: 10.9 x 5.1 x 5.7 cm Left kidney: 10.4 x 5.3 x 4.5 cm No renal hydronephrosis. No evidence for abnormal perinephric process. No solid or cystic renal mass. Unremarkable appearing bladder. 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 IMPRESSION: No hydronephrosis. Diffuse bilateral cortical increased echogenicity and cortical thinning.
== END 2020-01-28 13:08 | disposition home or self-care (01) ==
LOC: SCSULT 13:07
PROVIDERS: ATTEND Internal Medicine Nephrology
DX: N18.3 Chronic kidney disease, stage 3 (moderate) (principal); N28.89 Other specified disorders of kidney and ureter
CPT/HCPCS: 76770

== ENCOUNTER 2020-05-10 10:25 | Outpatient (CLI) | payer MEDICARE, MEDICAID ==
--- NOTE | 2020-05-10 11:30 | MMO ---
Bilateral MAMMO Bilat Screen DDI+CHASTITY. CLINICAL HISTORY: Patient is 59 years old and is seen for screening. The patient has the following family history of breast cancer: paternal aunt. The patient has no personal history of cancer. VIEWS: The views performed were: bilateral craniocaudal with tomosynthesis; bilateral mediolateral oblique; bilateral mediolateral oblique with tomosynthesis; and cleavage view. FILMS COMPARED: The present examination has been compared to prior imaging studies performed at [facility] on 07/28/2015, 08/02/2016 and 04/28/2019. This study has been interpreted with the assistance of computer-aided detection. MAMMOGRAM FINDINGS: There are no suspicious masses, suspicious calcifications, or new areas of architectural distortion. IMPRESSION: THERE IS NO MAMMOGRAPHIC EVIDENCE OF MALIGNANCY. A ROUTINE FOLLOW-UP MAMMOGRAM IN 1 YEAR IS RECOMMENDED. THE RESULTS OF THIS EXAM WERE SENT TO THE PATIENT. ACR BI-RADS Category 1 - Negative MAMMOGRAPHY NOTE: 1. A negative mammogram report should not delay a biopsy if a dominant of clinically suspicious mass is present. 2. Approximately 10% to 15% of breast cancers are not detected by mammography. 3. Adenosis and dense breasts may obscure an underlying neoplasm. Reported by: MELVI CIFUENTES MD Electonically Signed: [id number]
== END 2020-05-10 10:26 | disposition home or self-care (01) ==
LOC: BICMAMMO 10:25
PROVIDERS: ATTEND Family Medicine
DX: Z12.31 Encounter for screening mammogram for malignant neoplasm of breast (principal); Z80.3 Family history of malignant neoplasm of breast
CPT/HCPCS: 77063; 77067

== ENCOUNTER 2020-07-29 07:48 | Outpatient (CLI) | payer MEDICARE, MEDICAID, OTHER ==
[2020-07-29 14:42] LABS: #Eosinphils 0.1 thou/uL (0.0-0.7); #Lymphocytes 0.7 thou/uL (1.20-3.40); #Monocytes 0.6 thou/uL (0.11-0.59); #Neutrophils 3.5 thou/uL (1.40-6.50); %Basophils 0.5 % (0.0-1.0); %Eosinophils 1.9 % (0.0-10.0); %Lymphocytes 14.8 % (21.0-51.0); %Monocytes 11.2 % (0.0-10.0); %Neutrophils 71.7 % (42.0-75.0); Mean Corpuscular HGB CONC 31.9 g/dL (32.0-36.0); Mean Corpuscular Hemoglobin 30.2 pg (27.0-31.0); Mean Corpuscular Volume 94.4 fL (78.0-98.0); Mean Platelet Volume 8.3 fL (7.4-10.4); Platelet Count 149 thou/uL (130-400); RBC Distribution Width 13.5 % (11.5-14.5); Red Blood Cell (RBC) Count 3.65 mill/uL (4.20-5.40); White Blood Cell (WBC) Count 4.9 thou/uL (4.8-10.8)
[2020-07-29 15:55] LABS: ALT (SGPT) 15 U/L (8-55); AST (SGOT) 17 U/L (5-34); Albumin 3.8 g/dL (3.5-5.0); Alkaline Phosphatase 100 U/L (40-110); Anion Gap 13 mmol/L (10-20); BUN (Urea Nitrogen) 31 mg/dL (9.8-20.1); Bilirubin, Total 0.3 mg/dL (0.2-1.2); Calc. Creatinine Clearance 0 mL/min (70-130); Calcium 8.9 mg/dL (7.8-10.44); Carbon Dioxide 22 mmol/L (22-29); Chloride 108 mmol/L (98-107); Estimated GFR-MDRD 28; Globulin 2.3 g/dL (2.4-3.5); Glucose 100 mg/dL (70-105); Potassium 4.5 mmol/L (3.5-5.1); Protein, Total 6.1 g/dL (6.0-8.3); Sodium 138 mmol/L (136-145)
[2020-07-30 12:22] LABS: SARS-CoV-2 MS2 Positive; SARS-CoV-2 N Gene Negative; SARS-CoV-2 S Gene Negative; SARS-CoV-2 by NAA Not Detected (NotDetected); SARS-CoV-2 orf1ab Negative
== END 2020-07-29 07:49 | disposition home or self-care (01) ==
LOC: LABBT 07:48
PROVIDERS: ATTEND Internal Medicine Cardiovascular Disease
DX: Z01.812 Encounter for preprocedural laboratory examination (principal); Z20.828 Contact with and (suspected) exposure to other viral communicable diseases
CPT/HCPCS: 80053; 85025; U0003; 87635

== ENCOUNTER 2020-08-02 14:28 | Day surgery (SDC) | payer MEDICARE, MEDICAID ==
[2020-08-02 15:02] VITALS: BMI 51.5
[2020-08-02] MEDS ORDERED: Albuterol Sulfate 2.5 mg/3 ml Neb NEB PRN (17:54)
[2020-08-02] MEDS ORDERED: ALPRAZolam 0.5 MG TAB PO PRN (17:55)
[2020-08-02] MEDS ORDERED: Nitroglycerin 0.4 MG TAB (25 Tab Bottle) SL PRN (17:59)
[2020-08-02] MEDS ORDERED: traMADol HCl 50 MG TAB PO PRN (18:00)
[2020-08-02] MEDS: Sodium Chloride 0.9% 1,000 ML IV SCH (18:35)
[2020-08-02] MEDS: Mometasone 200 MCG/Formoterol 5 MCG 120 PUFF INHALER INH SCH (18:52)
--- NOTE | 2020-08-02 19:27 | CON ---
DATE OF CONSULTATION: 08/02/2020 REASON FOR CONSULTATION: CKD. HISTORY OF PRESENT ILLNESS: This is a 60-year-old female, admitted for shortness of breath. The patient's last reported creatinine had been rising. Her last reported creatinine on July 29 was 1.8, which had increased from 1.3 to 1.8. Her creatinine has ranged anywhere from 1.3 to 1.8. The patient denies any nausea, vomiting. PAST MEDICAL HISTORY: Significant for; 1. Hypertension. 2. Congestive heart failure. 3. History of acute kidney injury. 4. History of morbid obesity. 5. History of ATN. 6. History of dialysis. SOCIAL HISTORY: No alcohol or drug use. FAMILY HISTORY: Negative for ESRD. ALLERGIES: REVIEWED. MEDICATIONS: Home medication list reviewed. Hospital medication list reviewed. REVIEW OF SYSTEMS: 15-point review of system was performed negative except for positives noted above. HEENT: Eyes intact, no diplopia. Ears: No hearing loss or earache. Nose: No discharge or bleeding. CHEST: No cough or phlegm. ABDOMEN: No nausea or vomiting. GENITOURINARY: No hematuria. No West catheter. MUSCULOSKELETAL: No low back pain. No joint swelling or pain. NEUROLOGICAL: No syncope. No seizures. SKIN: No complaints of rash or itching. PSYCHIATRIC: No depression. CONSTITUTIONAL: No weight loss or loss of appetite. PHYSICAL EXAMINATION: GENERAL: The patient is awake, alert. VITAL SIGNS: Afebrile, pulse 59, breathing 16, blood pressure 135/62. HEENT: Head normocephalic and atraumatic. Eyes intact, no ulcers. Nose intact, no ulcers. Ears intact, no ulcers. NECK: Supple. No JVD. CHEST: Symmetrical and clear. CARDIOVASCULAR: Shows S1 and S2, no rub, no murmur. GASTROINTESTINAL: Abdomen is soft, bowel sounds positive. EXTREMITIES: Show no edema or ulcers. SKIN: Shows no rash or petechiae. MUSCULOSKELETAL: Shows no joint swelling or stiffness. GENITOURINARY: Shows no West or CVA tenderness. NEUROLOGIC: Motor intact. Cranial nerves intact. LABORATORY DATA: Pending. ASSESSMENT AND PLAN: 1. Acute kidney injury on chronic kidney disease. Follow labs. 2. Hypertension, stable. 3. Anemia, stable. 4. Medication based on GFR appropriate. Job ID: [id number]
[2020-08-02] MEDS: hydrALAZINE 25 MG TAB PO SCH (20:41)
[2020-08-02] MEDS: Bupropion 150 MG SR TAB PO SCH (20:42)
[2020-08-02] MEDS: Gabapentin 300 MG CAP PO SCH (20:42)
[2020-08-02] MEDS: Topiramate 25 MG TAB PO SCH (20:43)
[2020-08-02] MEDS ORDERED: Melatonin 3 MG TAB PO SCH (21:00)
[2020-08-02] MEDS ORDERED: traZODone HCl 150 MG TAB PO SCH (21:00)
[2020-08-02] MEDS ORDERED: Atorvastatin Calcium 20 MG TAB PO SCH (21:00)
[2020-08-02 21:19] LABS: Anion Gap 11 mmol/L (10-20); BUN (Urea Nitrogen) 24 mg/dL (9.8-20.1); Carbon Dioxide 23 mmol/L (22-29); Chloride 109 mmol/L (98-107); Potassium 4.1 mmol/L (3.5-5.1); Sodium 139 mmol/L (136-145)
[2020-08-02 21:20] LABS: Calc. Creatinine Clearance 68 mL/min (70-130); Calcium 8.6 mg/dL (7.8-10.44); Estimated GFR-MDRD 31; Glucose 107 mg/dL (70-105)
[2020-08-03 04:56] LABS: Eosinophils 4 % (0-10); Hemoglobin 9.8 g/dL (12.0-16.0); Lymphocytes 32 % (21-51); MDiff Complete? YES; Mean Corpuscular HGB CONC 32.1 g/dL (32.0-36.0); Mean Corpuscular Hemoglobin 30.1 pg (27.0-31.0); Mean Corpuscular Volume 93.7 fL (78.0-98.0); Monocytes 14 % (0-10); Neutrophil 50 % (42-75); Platelet Count 155 thou/uL (130-400); Platelet Morphology Comment Appears Adequate; RBC Distribution Width 13.6 % (11.5-14.5); Red Blood Cell (RBC) Count 3.27 mill/uL (4.20-5.40); White Blood Cell (WBC) Count 3.4 thou/uL (4.8-10.8)
[2020-08-03 05:03] LABS: Anion Gap 10 mmol/L (10-20); BUN (Urea Nitrogen) 26 mg/dL (9.8-20.1); Calc. Creatinine Clearance 69 mL/min (70-130); Calcium 8.4 mg/dL (7.8-10.44); Carbon Dioxide 24 mmol/L (22-29); Chloride 113 mmol/L (98-107); Estimated GFR-MDRD 32; Glucose 105 mg/dL (70-105); Potassium 4.2 mmol/L (3.5-5.1); Sodium 143 mmol/L (136-145)
[2020-08-03] MEDS: Sodium Chloride 0.9% 1,000 ML IV SCH (05:36)
[2020-08-03] MEDS: Topiramate 25 MG TAB PO SCH (06:43)
[2020-08-03] MEDS: Bupropion 150 MG SR TAB PO SCH (06:44)
[2020-08-03] MEDS: Gabapentin 300 MG CAP PO SCH (06:45)
[2020-08-03] MEDS: hydrALAZINE 25 MG TAB PO SCH (06:50)
[2020-08-03] MEDS ORDERED: Nitroglycerin 0.4 MG TAB (25 Tab Bottle) SL PRN (07:38)
[2020-08-03] MEDS ORDERED: Acetaminophen/Codeine 30-300mg Tablet PO PRN ×2 (07:38)
[2020-08-03] MEDS ORDERED: Sodium Chloride 0.9% 200 ML IV PRN (07:38)
[2020-08-03] MEDS ORDERED: Sodium Chloride 0.9% 1,000 ML IV SCH (07:45)
[2020-08-03] MEDS: Mometasone 200 MCG/Formoterol 5 MCG 120 PUFF INHALER INH SCH (08:18)
[2020-08-03] MEDS ORDERED: Cholecalciferol 1,000 UNITS (25 MCG) TAB PO SCH (09:00)
[2020-08-03] MEDS ORDERED: Citalopram 20 MG TAB PO SCH (09:00)
[2020-08-03] MEDS ORDERED: Nitroglycerin 0.6mg/Hour PATCH TOP SCH (09:00)
[2020-08-03] MEDS ORDERED: Aspirin Chewable 81 MG TAB PO SCH (09:00)
--- NOTE | 2020-08-03 09:34 | PRG ---
DATE OF SERVICE: 08/03/2020 SUBJECTIVE: A 60-year-old female, being seen for CKD. The patient denied nausea, vomiting, or chest pain. PHYSICAL EXAMINATION: GENERAL: The patient is awake and alert. VITAL SIGNS: Afebrile, pulse 75, breathing at 16, blood pressure 124/59. HEENT: Head normocephalic and atraumatic. Eyes intact, no ulcers. Nose intact, no ulcers. Ears intact, no ulcers. NECK: Supple. No JVD. CHEST: Symmetrical and clear. CARDIOVASCULAR: Shows S1 and S2, no rub, no murmur. GASTROINTESTINAL: Abdomen is soft, bowel sounds positive. EXTREMITIES: Show no edema or ulcers. SKIN: Shows no rash or petechiae. MUSCULOSKELETAL: Shows no joint swelling or stiffness. GENITOURINARY: Shows no West or CVA tenderness. NEUROLOGIC: Motor intact. Cranial nerves intact. LABORATORY DATA: Hemoglobin 9.8. Creatinine is 1.6. ASSESSMENT AND PLAN: 1. Chronic kidney disease stage 3, stable. 2. Hypertension, stable. 3. Anemia, stable. 4. Chronic obstructive pulmonary disease, consult Pulmonary per the patient's request. Job ID: [id number]
[2020-08-03 13:04] LABS: SARS-CoV-2 MS2 Positive; SARS-CoV-2 N Gene Negative; SARS-CoV-2 S Gene Negative; SARS-CoV-2 by NAA Not Detected (NotDetected); SARS-CoV-2 orf1ab Negative
[2020-08-03 15:36] VITALS: BP 127/61; TEMP 97.9
--- NOTE | 2020-08-03 15:42 | CON ---
DATE OF CONSULTATION: 08/03/2020 CONSULTING PHYSICIAN: Dr. Terry Gracia. REASON FOR CONSULTATION: COPD. HISTORY OF PRESENT ILLNESS: The patient is a 60-year-old female, who originally saw Dr. Daily back in 2018. She then saw Dr. Moyer over at [place] [facility] [place] in 2018 until he left town and then began seeing Dr. Bueno in our practice in 2018. She is currently in the hospital for a cardiac catheterization procedure, which I am told negative. She is complaining of shortness of breath which has been longstanding. Workup in our office in the past has shown that she has an FEV1 of 87% predicted at 1.94 L, and forced vital capacity of 91% predicted. She has slightly diminished DLCO which barely corrects for reduced volume. She is supposed to be getting Anoro Ellipta and albuterol inhaler, but I do not think she has been using the Anoro. She was smoking up until 2 months ago and has quit again. She is also being treated for KEYONNA with CPAP. Her most recent in our practice was in late 2018, where she showed good compliance, only apparatus. She does not complain of cough or congestion, just shortness of breath with exertion. PAST MEDICAL HISTORY: 1. KEYONNA. 2. Question of mild obstructive lung disease. 3. Chronic kidney disease. 4. Coronary artery disease, requiring stent placement in the past. 5. Hypertension with borderline control. 6. History of acute renal failure in the past requiring dialysis. PAST SURGICAL HISTORY: Bilateral knee replacements, bilateral kneecap repairs, coronary artery stent placement, excision of from the left axilla, tonsillectomy, ear drum surgery, hysterectomy, fusion in the neck, and hernia repair. FAMILY MEDICAL HISTORY: Remarkable for diabetes, heart disease, COPD, cancer, heart failure, thyroid disease, asthma, arthritis, stroke, hypertension, chronic kidney disease, and major depressive disorder. SOCIAL HISTORY: Has at least a 40 pack-year history of smoking. ALLERGIES: NONE. MEDICATIONS: Prior to admission, these are listed under the home medication section and the summary tab on the chart. REVIEW OF SYSTEMS: Twelve-point review of systems is otherwise negative. PHYSICAL EXAMINATION: VITAL SIGNS: Temperature 98, pulse 55, respirations 18, O2 saturation 95%, and blood pressure 124/59. GENERAL: She is awake and alert and in no distress. HEENT: Unremarkable. NECK: No adenopathy or JVD. LUNGS: Clear without wheezing or rhonchi. CARDIAC: S1 and S2. Regular. ABDOMEN: Obese, soft, nontender. EXTREMITIES: No clubbing, cyanosis, or edema. LABORATORY DATA: White blood cell count 3.4, hematocrit 30.6, and platelet count 155. Sodium 142, potassium 4.2, chloride 113, CO2 of 24, BUN 26, creatinine 1.6, and glucose 105. ASSESSMENT: 1. History of lung disease without much decrement in her PFTs. 2. Morbid obesity with BMI of 51.6. 3. Underlying obstructive sleep apnea. PLAN: 1. Continue the Anoro or Breo along with albuterol. 2. Keep appointment in our office in August. 3. She needs significant weight loss. 4. Not much more to add at this time. Job ID: [id number]
--- NOTE | 2020-08-03 16:49 | PDOC.FMACP ---
Advance Care Planning - Problem (1) Obesity Status: Acute Code(s): E66.9 - OBESITY, UNSPECIFIED (2) Palliative care encounter Status: Acute Code(s): Z51.5 - ENCOUNTER FOR PALLIATIVE CARE (3) CKD (chronic kidney disease) stage 3, GFR 30-59 ml/min Status: Acute Code(s): N18.3 - CHRONIC KIDNEY DISEASE, STAGE 3 (MODERATE) (4) Normocytic anemia Status: Acute Code(s): D64.9 - ANEMIA, UNSPECIFIED (5) HTN (hypertension) Status: Chronic Code(s): I10 - ESSENTIAL (PRIMARY) HYPERTENSION Qualifiers: (6) KEYONNA and COPD overlap syndrome Status: Chronic Code(s): G47.33 - OBSTRUCTIVE SLEEP APNEA (ADULT) (PEDIATRIC) ; J44.9 - CHRONIC OBSTRUCTIVE PULMONARY DISEASE, UNSPECIFIED - Note Participants: patient, palliative care Summary: Palliative Care introduced Advanced Care Planning, opportunity to decline. The diagnosis, prognosis and goals of care were discussed. Appropriate forms and documentation to accomplish the goals of care were discussed. All questions were answered. Elected to complete MPOA and Directive to Physicians, original and copy given to the patient, as well as copies placed on the chart for medical records. Time Spent (mins): 20
== END 2020-08-03 16:40 | disposition home or self-care (01) ==
LOC: CCL 14:28 → SJX 14:28 → CCL 14:37 → SJX 14:37 → 2NO 14:37 → CCL 08-03 16:40
PROVIDERS: ATTEND Internal Medicine Cardiovascular Disease
DX: J44.9 Chronic obstructive pulmonary disease, unspecified (principal); I13.0 Hypertensive heart and chronic kidney disease with heart failure and stage 1 through stage 4 chronic kidney disease, or unspecified chronic kidney disease; N18.3 Chronic kidney disease, stage 3 (moderate); I50.9 Heart failure, unspecified; N17.9 Acute kidney failure, unspecified; D64.9 Anemia, unspecified; G47.33 Obstructive sleep apnea (adult) (pediatric); I25.10 Atherosclerotic heart disease of native coronary artery without angina pectoris; E66.01 Morbid (severe) obesity due to excess calories; Z68.51 Body mass index [BMI] pediatric, less than 5th percentile for age; Z87.891 Personal history of nicotine dependence; Z95.5 Presence of coronary angioplasty implant and graft
CPT/HCPCS: 36415; 80048; 85025; 87635; 90471; 90732; C1760; G0009; J1644; U0003

== ENCOUNTER 2020-08-10 15:44 | Observation (INO) | payer MEDICARE, MEDICAID ==
[2020-08-10 16:32] LABS: #Eosinphils 0.1 thou/uL (0.0-0.7); #Lymphocytes 0.8 thou/uL (1.20-3.40); #Monocytes 0.5 thou/uL (0.11-0.59); #Neutrophils 2.1 thou/uL (1.40-6.50); %Basophils 0.6 % (0.0-1.0); %Eosinophils 2.1 % (0.0-10.0); %Lymphocytes 23.3 % (21.0-51.0); %Monocytes 14.8 % (0.0-10.0); %Neutrophils 59.2 % (42.0-75.0); Hemoglobin 11.3 g/dL (12.0-16.0); Mean Corpuscular HGB CONC 32.4 g/dL (32.0-36.0); Mean Corpuscular Hemoglobin 30.4 pg (27.0-31.0); Mean Corpuscular Volume 93.6 fL (78.0-98.0); Mean Platelet Volume 8.4 fL (7.4-10.4); Platelet Count 192 thou/uL (130-400); Red Blood Cell (RBC) Count 3.73 mill/uL (4.20-5.40); White Blood Cell (WBC) Count 3.6 thou/uL (4.8-10.8)
[2020-08-10 17:08] LABS: ALT (SGPT) 15 U/L (8-55); AST (SGOT) 25 U/L (5-34); Albumin 4.1 g/dL (3.5-5.0); Alkaline Phosphatase 97 U/L (40-110); Anion Gap 16 mmol/L (10-20); BUN (Urea Nitrogen) 33 mg/dL (9.8-20.1); Bilirubin, Total 0.3 mg/dL (0.2-1.2); Calc. Creatinine Clearance 0 mL/min (70-130); Calcium 9.4 mg/dL (7.8-10.44); Carbon Dioxide 21 mmol/L (22-29); Chloride 105 mmol/L (98-107); Estimated GFR-MDRD 21; Globulin 3.1 g/dL (2.4-3.5); Glucose 85 mg/dL (70-105); Magnesium 2.2 mg/dL (1.6-2.6); Potassium 5.9 mmol/L (3.5-5.1); Protein, Total 7.2 g/dL (6.0-8.3); Sodium 136 mmol/L (136-145)
--- NOTE | 2020-08-10 17:19 | RAD ---
Portable frontal chest radiograph: 08/10/2020 COMPARISON: 03/12/2018 HISTORY: Hypotension, bradycardia FINDINGS: Stable prominence of the cardiac silhouette and atherosclerotic calcification of the aortic arch. Cervical spine fusion hardware present. No lobar consolidation or alveolar edema. IMPRESSION: No acute findings-stable appearance of the chest.
--- NOTE | 2020-08-10 17:50 | PDOC.HHP ---
Hospitalist HPI - History of Present Illness Left calf pain History of Present Illness: 38-year-old male presents the ER with a chief complaint of left calf pain and swelling for the past few days. Patient reports it feels very similar to when he had a DVT back in March of last year. Patient was admitted for DVT and bilateral PEs in March of last year and was on warfarin for a few months. Patient states has been off warfarin for the past 4 months this was Discontinued by his primary c are doctor at [facility]. Patient denies any chest pain or shortness of breath, does report he he felt very dizzy and lightheaded yesterday when he stood up and had to sit back down because of this. Patient is unsure exactly why he is forming DVTs and had PEs. It sounds like it was unprovoked back in March of last year. Patient states the pain is made worse with weightbearing, movement in the left lower extremity. Denies any numbness or tingling., Denies any trauma. Hospitalist Results - Labs Result Diagrams: 08/10/20 16:20 08/10/20 16:20 Lab results: WBC 3.6 thou/uL (4.8-10.8) L 08/10/20 16:20 Hgb 11.3 g/dL (12.0-16.0) L 08/10/20 16:20 Hct 35.0 % (36.0-47.0) L 08/10/20 16:20 MCV 93.6 fL (78.0-98.0) 08/10/20 16:20 Plt Count 192 thou/uL (130-400) 08/10/20 16:20 Neutrophils % 59.2 % (42.0-75.0) 08/10/20 16:20 Sodium 136 mmol/L (136-145) 08/10/20 16:20 Potassium 5.9 mmol/L (3.5-5.1) H 08/10/20 16:20 Chloride 105 mmol/L (98-107) 08/10/20 16:20 Carbon Dioxide 21 mmol/L (22-29) L 08/10/20 16:20 BUN 33 mg/dL (9.8-20.1) H 08/10/20 16:20 Creatinine 2.38 mg/dL (0.6-1.1) H 08/10/20 16:20 Glucose 85 mg/dL (70-105) 08/10/20 16:20 Calcium 9.4 mg/dL (7.8-10.44) 08/10/20 16:20 Total Bilirubin 0.3 mg/dL (0.2-1.2) 08/10/20 16:20 AST 25 U/L (5-34) 08/10/20 16:20 ALT 15 U/L (8-55) 08/10/20 16:20 Alkaline Phosphatase 97 U/L (40-110) 08/10/20 16:20 Troponin I Less than 0.010 ng/mL (< 0.028) 08/10/20 16:20 Serum Total Protein 7.2 g/dL (6.0-8.3) 08/10/20 16:20 Albumin 4.1 g/dL (3.5-5.0) 08/10/20 16:20
[2020-08-10] MEDS ORDERED: Sodium Bicarb 50 MEQ/50 ML Abboject 8.4% SYRINGE IVP SCH (18:00)
[2020-08-10] MEDS ORDERED: Sodium Chloride 0.9% 1,000 ML IV SCH ×2 (18:00→20:30)
[2020-08-10] MEDS ORDERED: Insulin Regular 300 UNITS/3 ML VIAL IVP SCH (18:00)
[2020-08-10] MEDS ORDERED: Dextrose 50% Abboject 50 ML SYRINGE SLOW IVP SCH (18:00)
[2020-08-10] MEDS ORDERED: Dextrose 50% Abboject 50 ML SYRINGE ONE (18:21)
[2020-08-10] MEDS ORDERED: Insulin Regular 300 UNITS/3 ML VIAL ONE (18:21)
[2020-08-10] MEDS ORDERED: Sodium Bicarb 50 MEQ/50 ML VIAL ONE ×2 (18:21→18:23)
--- NOTE | 2020-08-10 19:58 | PDOC.HHP ---
Hospitalist HPI - History of Present Illness Low blood pressure History of Present Illness: Patient is a 60 year old female with PMH arthritis, renal insufficiency, CAD, HLD, HTN who presents to ED for hypotension. Patient reports she checked her blood pressure after taking all her home meds and had 2 blood pressure recordings with the systolic blood pressure in the 70s or 80s, with heart rate in the 40s as well. She otherwise denies any significant lightheadedness dizziness, chest pain or shortness of breath. She had a presyncopal episode getting out of bed earlier, but did not actually fall or lose consciousness. She was started on tizanidine yesterday for back pain, she notes drowsiness as side effect. No other chronotropic medications on med list. No history of AVB. In ED, troponin within normal limits, CXR without acute findings, K 5.9, Cr 2.38, CO2 21, BUN 33. EKG w/ sinus bradycardia rate 45. Patient received IVF, insulin/d50, calcium gluconate, sodium bicarbonate. Patient admitted for further evaluation. Hospitalist ROS - Review of Systems Constitutional: denies: fever, chills, sweats, weakness, malaise Eyes: denies: pain, vision change, conjunctivae inflammation, eyelid inflammation, redness, other ENT: denies: ear pain, ear discharge, nose pain, nose discharge, nose congestion, mouth pain, mouth swelling, throat pain, throat swelling, other Respiratory: denies: cough, dry, shortness of breath, hemoptysis, SOB with excertion, pleuritic pain, sputum, wheezing, other Gastrointestinal: denies: nausea, vomiting, abdominal pain, diarrhea, constipation, melena, hematochezia, other Genitourinary: denies: dysuria, frequency, incontinence, hematuria, retention, other Musculoskeletal: reports: back pain (chronic) Skin: denies: rash, lesions, jn, bruising, other Neurological: denies: weakness, numbness, incoordination, change in speech, confusion, seizures, other All other systems reviewed; all pertinent +/- noted in HPI/Subj - Medication Medications: nitroglycerin sublingual SatAug 10, 2020 16:13 KHOA Schultz, [place] tablet, sublingual : Strength - 0.4 mg : SUBLINGUAL Patient Dose: 1 tab(s) Oral. NEEDED. gabapentin SatAug 10, 2020 16:13 KHOA Schultz [place] capsule : Strength - 300 mg : ORAL Patient Dose: 1 tab(s) Oral 2 times a day. hydrALAZINE oral SatAug 10, 2020 16:14 KHOA Schultz [place] tablet : Strength - 100 mg : ORAL Patient Dose: 1 tab(s) Oral 2 times a day. lisinopril SatAug 10, 2020 16:14 KHOA Schultz [place] tablet : Strength - 10 mg : ORAL Patient Dose: 2 tab(s) Oral 2 times a day. buPROPion HCl SatAug 10, 2020 16:16 KHOA Schultz [place] tablet extended release 24 hr : Strength - 150 mg : ORAL Patient Dose: 1 tab(s) Oral 2 times a day. citalopram SatAug 10, 2020 16:16 KHOA Schultz [place] tablet : Strength - 40 mg : ORAL Patient Dose: 1 tab(s) Oral once a day. omeprazole SatAug 10, 2020 16:17 KHOA Schultz [place] capsule,delayed release(DR/EC) : Strength - 40 mg : ORAL Patient Dose: 1 tab(s) Oral once a day. Nitro Transdermal SatAug 10, 2020 16:17 KHOA Schultz [place] patch 24 hour : Strength - 0.6 mg/hour : TRANSDERMAL Patient Dose: Unknown. lovastatin SatAug 10, 2020 16:18 KHOA Schultz [place] tablet : Strength - 40 mg : ORAL Patient Dose: 0.5 tab(s) Oral once a day. topiramate SatAug 10, 2020 16:18 KHOA Schultz [place] tablet : Strength - 50 mg : ORAL Patient Dose: 1 tab(s) Oral 2 times a day. traZODone SatAug 10, 2020 16:19 KHOA Schultz [place] tablet : Strength - 150 mg : ORAL Patient Dose: 1 tab(s) Oral once a day (at bedtime). traMADol SatAug 10, 2020 16:19 KHOA Schultz [place] tablet : Strength - 50 mg : ORAL Patient Dose: 1 tab(s) Oral 2 times a day.prn. melatonin oral SatAug 10, 2020 16:24 KHOA Schultz [place] capsule : Strength - 5 mg : ORAL Patient Dose: 2 tab(s) Oral once a day (at bedtime). Hospitalist History - Past Medical History Other Medical History: arthritis, renal insufficiency, CAD, HLD, HTN - Past Surgical History Other Surgical History: angioplasty April 2016 Knee cap repair (right), Surgical history of cholecystec krystal, Surgical history of hernia repair, Surgical history of orthopedic surgery, right knee replacement x 2. left knee repair x 2 on left cervical spine sx 2012. 08/03/2020 - HEART CATH. - Family History Family History: reports: no pertinent history Other Family History: CAD father - Social History Smoking Status: Former smoker - Exam General Appearance: NAD, awake alert Eye: PERRL, anicteric sclera ENT: normocephalic atraumatic, no oropharyngeal lesions, moist mucosa Neck: supple, symmetric, no JVD, no thyromegaly, no lymphadenopathy, no carotid bruit Heart: RRR, no murmur, no gallops, no rubs, normal peripheral pulses Respiratory: CTAB, no wheezes, no rales, no ronchi, normal chest expansion, no tachypnea, normal percussion Gastrointestinal: soft, non-tender, non-distended, normal bowel sounds, no palpable masses, no hepatomegaly, no splenomegaly, no bruit Extremities: no cyanosis, no clubbing, no edema Skin: normal turgor, no lesions, no rashes Neurological: cranial nerve grossly intact, normal sensation to touch, no weakness, no focal deficits, no new deficit Musculoskeletal: normal tone, normal strength, no muscle wasting Psychiatric: normal affect, normal behavior, A&O x 3 Hospitalist Results - Labs Result Diagrams: 08/10/20 16:20 08/10/20 20:38 Lab results: WBC 3.6 thou/uL (4.8-10.8) L 08/10/20 16:20 Hgb 11.3 g/dL (12.0-16.0) L 08/10/20 16:20 Hct 35.0 % (36.0-47.0) L 08/10/20 16:20 MCV 93.6 fL (78.0-98.0) 08/10/20 16:20 Plt Count 192 thou/uL (130-400) 08/10/20 16:20 Neutrophils % 59.2 % (42.0-75.0) 08/10/20 16:20 Sodium 136 mmol/L (136-145) 08/10/20 16:20 Potassium 5.9 mmol/L (3.5-5.1) H 08/10/20 16:20 Chloride 105 mmol/L (98-107) 08/10/20 16:20 Carbon Dioxide 21 mmol/L (22-29) L 08/10/20 16:20 BUN 33 mg/dL (9.8-20.1) H 08/10/20 16:20 Creatinine 2.38 mg/dL (0.6-1.1) H 08/10/20 16:20 Glucose 85 mg/dL (70-105) 08/10/20 16:20 Calcium 9.4 mg/dL (7.8-10.44) 08/10/20 16:20 Total Bilirubin 0.3 mg/dL (0.2-1.2) 08/10/20 16:20 AST 25 U/L (5-34) 08/10/20 16:20 ALT 15 U/L (8-55) 08/10/20 16:20 Alkaline Phosphatase 97 U/L (40-110) 08/10/20 16:20 Creatine Kinase 70 U/L (29-168) 08/10/20 16:20 Troponin I Less than 0.010 ng/mL (< 0.028) 08/10/20 16:20 Serum Total Protein 7.2 g/dL (6.0-8.3) 08/10/20 16:20 Albumin 4.1 g/dL (3.5-5.0) 08/10/20 16:20 Additional comment: VITAL SIGNS SatAug 10, 2020 17:38 KHOA Schultz [place] BP: 116/61 MAP: 79 Pulse: 44 Resp: 19 Pain: 10 O2 sat: 97 on (Room Air) Time: 08/10/2020 17:38. VITAL SIGNS SatAug 10, 2020 19:14 KHOA Mann [place] BP: 131/51 MAP: 77 Pulse: 46 Resp: 20 Temp: 97.7 (Oral) Pain: 10 O2 sat: 97 on (Room Air) Time: 08/10/2020 19:14. - EKG Interpretation EKG: Sinus bradycardia rate [address] changes, QTc 394. Hospitalist H&P A/P - Plan Plan: Patient is a 60 year old female with PMH arthritis, renal insufficiency, CAD, HLD, HTN who presents to ED for hypotension. # hypotension # bradycardia New onset of hypotension and bradycardia, with SBP in 70-80s and HR in 40s after new initiation of tizanidine. No AV block, no significant symptoms to precipitate emergent intervention. Tizanidine is an alpha 2 elizabeth and has been associated with bradycardia, reversible in most cases by discontinuing med ication. Will request cardiology evaluation and hold medication and observe closely on telemetry. In ED, troponin within normal limits, CXR without acute findings. - admit to telemetry - discontinue tizanidine, hold BP meds/diuretics, continue other medications - orthostatic vitals - hold IVF, BP already recovering - consult Dr Lay # SHAHAB on CKD III - Cr is 2.3 on admission, baseline Cr is 1.6-1.8 - I/Os, avoid nephrotoxic medications - treatment of hypotension as above - bladder scan - trend BMP, consider nephrology consult if not improving - patient sees Dr Garcia for CKD (not consulting right now, just noting in case consultation needed this admission) # metabolic acidosis # hyperkalemia - likely due to SHAHAB, patient recieved IVF, insulin/d50, calcium gluconate, sodium bicarbonate in ED, recheck BMP pending # chronic back pain - on tramadol at home - dc tizanidine - start tylenol 3 DVT/GI ppx full code
[2020-08-10] MEDS ORDERED: Acetaminophen 325 MG TAB PO PRN (20:26)
[2020-08-10] MEDS ORDERED: Ondansetron PF 4 MG/2 ML Vial IVP PRN (20:26)
[2020-08-10] MEDS ORDERED: hydrALAZINE 20 MG/ML VIAL SLOW IVP PRN (20:26)
[2020-08-10] MEDS ORDERED: Famotidine 20 MG TAB PO SCH ×2 (21:00)
[2020-08-10 21:09] LABS: Anion Gap 12 mmol/L (10-20); BUN (Urea Nitrogen) 31 mg/dL (9.8-20.1); Calc. Creatinine Clearance 0 mL/min (70-130); Calcium 9.5 mg/dL (7.8-10.44); Carbon Dioxide 25 mmol/L (22-29); Chloride 107 mmol/L (98-107); Estimated GFR-MDRD 25; Glucose 99 mg/dL (70-105); Potassium 4.6 mmol/L (3.5-5.1); Sodium 139 mmol/L (136-145)
[2020-08-10] MEDS ORDERED: traZODone HCl 150 MG TAB PO PRN (21:35)
[2020-08-10] MEDS ORDERED: Melatonin 3 MG TAB PO PRN (21:35)
[2020-08-10] MEDS ORDERED: traMADol HCl 50 MG TAB PO PRN (21:35)
[2020-08-10] MEDS: Gabapentin 300 MG CAP PO SCH (22:25)
[2020-08-10] MEDS: Acetaminophen/Codeine 30-300mg Tablet PO PRN (22:25)
[2020-08-10] MEDS ORDERED: Enoxaparin Sodium 30 MG/0.3 ML SYRINGE SC SCH (22:30)
[2020-08-10] MEDS ORDERED: hydrALAZINE 25 MG TAB PO SCH (22:30)
[2020-08-11 01:04] VITALS: BMI 59.8
[2020-08-11 04:27] LABS: #Eosinphils 0.1 thou/uL (0.0-0.7); #Lymphocytes 1.1 thou/uL (1.20-3.40); #Monocytes 0.4 thou/uL (0.11-0.59); #Neutrophils 1.6 thou/uL (1.40-6.50); %Basophils 0.7 % (0.0-1.0); %Eosinophils 3.4 % (0.0-10.0); %Lymphocytes 33.8 % (21.0-51.0); %Monocytes 13.5 % (0.0-10.0); %Neutrophils 48.7 % (42.0-75.0); Hemoglobin 10.5 g/dL (12.0-16.0); Mean Corpuscular HGB CONC 32.3 g/dL (32.0-36.0); Mean Corpuscular Hemoglobin 30.8 pg (27.0-31.0); Mean Corpuscular Volume 95.4 fL (78.0-98.0); Mean Platelet Volume 7.7 fL (7.4-10.4); Platelet Count 146 thou/uL (130-400); RBC Distribution Width 13.8 % (11.5-14.5); White Blood Cell (WBC) Count 3.3 thou/uL (4.8-10.8)
[2020-08-11 04:56] LABS: Troponin I 0.032 ng/mL (< 0.028)
[2020-08-11 04:59] LABS: Anion Gap 13 mmol/L (10-20); BUN (Urea Nitrogen) 32 mg/dL (9.8-20.1); Calc. Creatinine Clearance 70 mL/min (70-130); Calcium 9.1 mg/dL (7.8-10.44); Carbon Dioxide 25 mmol/L (22-29); Chloride 110 mmol/L (98-107); Estimated GFR-MDRD 27; Glucose 104 mg/dL (70-105); Magnesium 2.2 mg/dL (1.6-2.6); Potassium 4.7 mmol/L (3.5-5.1); Sodium 143 mmol/L (136-145)
[2020-08-11] MEDS: Acetaminophen/Codeine 30-300mg Tablet PO PRN ×2 (05:25→09:26)
[2020-08-11 06:05] LABS: Bacteria/HPF None Seen HPF (None Seen); Bilirubin Negative (Negative); Blood, Urine Negative (Negative); Clarity Clear (Clear); Glucose, Urine (Dipstick) Normal (Negative); Ketone, Urine Negative (Negative); Leukocyte Negative Leu/uL (Negative); Mucous/LPF Rare LPF (<2+); Nitrite Negative (Negative); Protein, Urine (Dipstick) Negative (Neg-Trace); RBC/HPF 0-3 HPF (0-3); Specific Gravity, Urine 1.013 (1.002-1.036); Squamous Epithelial 0-3 HPF (0-3); Urobilinogen Normal mg/dL (Less than 2); WBC/HPF 0-3 HPF (0-3); pH, Urine 5.5 (5.0-9.0)
[2020-08-11 06:13] LABS: Urine Culture Reflex No No
[2020-08-11] MEDS: Gabapentin 300 MG CAP PO SCH (08:57)
[2020-08-11] MEDS ORDERED: hydrALAZINE 25 MG TAB PO SCH (09:00)
--- NOTE | 2020-08-11 12:44 | CON ---
DATE OF CONSULTATION: REASON FOR CONSULTATION: Bradycardia. HISTORY OF PRESENT ILLNESS: The patient recently presented to the emergency room with hypotension. She states she started a new muscle relaxant. She is not on beta-elizabeth therapy or calcium channel blockade. She states her heart rate is in the 40s. No syncope, presyncope, or associated symptoms were noted. She recently underwent coronary angiography and was found to have [id number] coronary artery disease. PAST MEDICAL HISTORY: CAD, obesity, asthma, knee surgery, cholecystectomy, hernia repair, renal insufficiency, hyperlipidemia, hypertension. SOCIAL HISTORY: No current tobacco or alcohol use. REVIEW OF SYSTEMS: A 10-point review of systems is reviewed as above, otherwise negative. PHYSICAL EXAMINATION: GENERAL: Patient is a pleasant female who is in no acute distress. The patient appears their stated age. VITAL SIGNS: Blood pressure 135/51, pulse 58, temperature 98. NEUROLOGIC: The patient is alert and oriented x3 with no focal neurologic deficits. HEENT: Sclerae without icterus. Mouth has moist mucous membranes with normal pallor. NECK: No JVD. Carotid upstroke brisk. No bruits bilaterally. LUNGS: Clear to auscultation with unlabored respirations. BACK: No scoliosis or kyphosis. CARDIAC: Regular rate and rhythm with normal S1 and S2. No S3 or S4 noted. No significant rubs, murmurs, thrills, or gallops noted throughout the precordium. PMI is not displaced. There is no parasternal heave. ABDOMEN: Soft, nontender, nondistended. No peritoneal signs present. No hepatosplenomegaly. No abnormal striae. EXTREMITIES: 2+ femoral and 2+ dorsalis pedis pulses. No cyanosis, clubbing, or edema. SKIN: No gross abnormalities. PERTINENT LABORATORY DATA: Hemoglobin 10.2. Creatinine 1.9, down from 2.38. Troponin 0.032. IMPRESSION: 1. Bradycardia. 2. Hypotension. 3. Coronary artery disease. 4. Obesity. 5. Asthma. RECOMMENDATIONS: Ms. Ahuja has no current symptoms from symptomatic bradycardia. Her heart rate has been in the 40s. This may or may not be related to medications. We will continue to monitor closely. Recommend a 3-week event recorder. She has had a full cardiac workup recently and we would not recommend any further treatment or studies. Plan is a 3-week event recorder and follow up as an outpatient. We will sign off. Job ID: [id number]
[2020-08-11 15:16] VITALS: BP 120/53; TEMP 98.6
[2020-08-11] MEDS ORDERED: Enoxaparin Sodium 30 MG/0.3 ML SYRINGE SC SCH (21:00)
== END 2020-08-11 16:20 | disposition home or self-care (01) ==
LOC: ERS 15:44 → 2NO 21:29 → INTOOBSV 21:29
PROVIDERS: ADMIT Student in an Organized Health Care Education/Training Program; ATTEND Student in an Organized Health Care Education/Training Program
DX: I95.9 Hypotension, unspecified (principal); R00.1 Bradycardia, unspecified; M19.90 Unspecified osteoarthritis, unspecified site; I25.10 Atherosclerotic heart disease of native coronary artery without angina pectoris; E78.5 Hyperlipidemia, unspecified; I12.9 Hypertensive chronic kidney disease with stage 1 through stage 4 chronic kidney disease, or unspecified chronic kidney disease; N18.3 Chronic kidney disease, stage 3 (moderate); N17.9 Acute kidney failure, unspecified; E87.2 Acidosis; E87.5 Hyperkalemia; G89.29 Other chronic pain; M54.9 Dorsalgia, unspecified; J45.909 Unspecified asthma, uncomplicated; E66.9 Obesity, unspecified; Z68.43 Body mass index [BMI] 50.0-59.9, adult; Z87.891 Personal history of nicotine dependence; Z79.82 Long term (current) use of aspirin; Z79.899 Other long term (current) drug therapy
CPT/HCPCS: 36415; 36416; 36600; 71045; 80048; 80053; 81001; 82550; 83735; 84484; 85025; 93005; 94640; 96361; 96365; 96375; J0610; J1650; J1815; J3490; J7620

== ENCOUNTER 2020-10-19 08:26 | Outpatient (CLI) | payer MEDICARE, MEDICAID ==
--- NOTE | 2020-10-19 09:12 | RAD ---
PA AND LATERAL VIEWS CHEST: HISTORY: Dyspnea. COMPARISON: 08/10/2020. FINDINGS: The heart size is normal. The aorta is tortuous. No lobar consolidation, pneumothoraces, or pleural effusions are seen. Mild chronic changes are stable. There are postop changes in the lower cervica l spine. IMPRESSION: No acute process. POS: OFF
== END 2020-10-19 08:27 | disposition home or self-care (01) ==
LOC: BICRAD 08:26
PROVIDERS: ATTEND Internal Medicine Critical Care Medicine
DX: R06.00 Dyspnea, unspecified (principal)
CPT/HCPCS: 71046

== ENCOUNTER 2021-05-11 10:30 | Outpatient (CLI) | payer MEDICARE, MEDICAID | END 2021-05-11 10:31 | disposition home or self-care (01) | LOC: BICRAD 10:30 | PROVIDERS: ATTEND Internal Medicine Critical Care Medicine | DX: R06.00 Dyspnea, unspecified (principal) | CPT/HCPCS: 71046 ==

== ENCOUNTER 2021-10-29 17:00 | Observation (INO) | payer MEDICARE, MEDICAID ==
[2021-10-29 20:57] VITALS: BMI 48.1
[2021-10-29] MEDS ORDERED: ALPRAZolam 0.5 MG TAB PO PRN (22:22)
[2021-10-29] MEDS ORDERED: Non-Formulary Item 1 EACH (Fluticasone/Vilanterol [Breo Ellipta 200-25 Mcg Inh] 1 EACH Bl PO PRN (22:22)
[2021-10-29] MEDS ORDERED: Albuterol Sulfate 2.5 mg/3 ml Neb NEB PRN (22:25)
[2021-10-29] MEDS ORDERED: Mometasone 200 MCG/Formoterol 5 MCG 120 PUFF INHALER INH PRN (22:26)
[2021-10-29] MEDS ORDERED: Insulin Regular 300 UNITS/3 ML VIAL SC PRN (22:45)
[2021-10-29] MEDS ORDERED: HumaLOG 300 UNITS/3 ML VIAL SC PRN (22:45)
[2021-10-29] MEDS ORDERED: Dextrose 5% in Water 1,000 ML IV PRN (22:45)
[2021-10-29] MEDS ORDERED: Furosemide 20 MG/2 ML VIAL SLOW IVP SCH (22:45)
[2021-10-29] MEDS ORDERED: Furosemide 40 MG/4 ML VIAL SLOW IVP SCH (22:45)
[2021-10-29] MEDS ORDERED: Dextrose 50% Abboject 50 ML SYRINGE SLOW IVP PRN (22:45)
[2021-10-29] MEDS ORDERED: Potassium Chloride 20 MEQ TAB PO SCH (22:45)
[2021-10-29] MEDS ORDERED: Gabapentin 300 MG CAP PO SCH (23:00)
[2021-10-29] MEDS ORDERED: traZODone HCl 150 MG TAB PO SCH (23:00)
[2021-10-29] MEDS: Gabapentin 300 MG CAP PO SCH (23:05)
[2021-10-29] MEDS: Albuterol Sulfate 2.5 mg/3 ml Neb IPPB SCH (23:07)
[2021-10-29 23:08] LABS: Anion Gap 10 mmol/L (10-20); BUN (Urea Nitrogen) 18 mg/dL (9.8-20.1); Calc. Creatinine Clearance 103 mL/min (70-130); Calcium 8.5 mg/dL (7.8-10.44); Carbon Dioxide 33 mmol/L (22-29); Chloride 105 mmol/L (98-107); Glucose 126 mg/dL (70-105); Magnesium 2.1 mg/dL (1.6-2.6); Potassium 3.6 mmol/L (3.5-5.1); Sodium 144 mmol/L (136-145)
[2021-10-29 23:12] LABS: PTT 32.6 sec (22.9-36.1); Prothrombin Time 13.7 sec (12.0-14.7)
[2021-10-29 23:13] LABS: Troponin I Less than 0.010 ng/mL (< 0.028)
[2021-10-29 23:21] LABS: Hemoglobin A1c 5.4 % (4.0-6.0)
[2021-10-29 23:29] LABS: Band 1 % (5-11); Eosinophils 1 % (0-10); Hemoglobin 11.1 g/dL (12.0-16.0); Lymphocytes 29 % (21-51); MDiff Complete? YES; Mean Corpuscular HGB CONC 32.6 g/dL (32.0-36.0); Mean Corpuscular Hemoglobin 32.4 pg (27.0-31.0); Mean Corpuscular Volume 99.5 fL (78.0-98.0); Mean Platelet Volume 7.6 fL (7.4-10.4); Monocytes 8 % (0-10); Neutrophil 61 % (42-75); Platelet Count 159 thou/uL (130-400); RBC Distribution Width 11.9 % (11.5-14.5); Red Blood Cell (RBC) Count 3.41 mill/uL (4.20-5.40); White Blood Cell (WBC) Count 4.6 thou/uL (4.8-10.8)
[2021-10-29 23:44] LABS: Bilirubin Negative (Negative); Blood, Urine Negative (Negative); Clarity Clear (Clear); Glucose, Urine (Dipstick) Normal (Negative); Ketone, Urine Negative (Negative); Leukocyte Negative Leu/uL (Negative); Nitrite Negative (Negative); Protein, Urine (Dipstick) 10 mg/dL (Neg-Trace); RBC/HPF 0-3 HPF (0-3); Specific Gravity, Urine 1.027 (1.002-1.036)
[2021-10-29 23:53] LABS: Bacteria/HPF 1+ HPF (None Seen)
[2021-10-29 23:54] LABS: Urine Culture Reflex No No
[2021-10-30] MEDS ORDERED: Nitroglycerin 0.4 MG TAB (25 Tab Bottle) SL PRN (00:29)
[2021-10-30 00:38] LABS: SARS-CoV-2 NAA Rapid Test Not Detected (NotDetected)
[2021-10-30 02:03] LABS: Troponin I Less than 0.010 ng/mL (< 0.028)
[2021-10-30] MEDS: Albuterol Sulfate 2.5 mg/3 ml Neb IPPB SCH ×3 (03:24→10:25)
[2021-10-30] MEDS ORDERED: Furosemide 20 MG/2 ML VIAL SLOW IVP SCH (06:00)
[2021-10-30] MEDS ORDERED: predniSONE 20 MG TAB PO SCH (08:00)
[2021-10-30] MEDS: Gabapentin 300 MG CAP PO SCH (08:48)
[2021-10-30] MEDS ORDERED: hydrALAZINE 25 MG TAB PO SCH (09:00)
[2021-10-30] MEDS ORDERED: NIFEdipine XL 30 MG TAB PO SCH (09:00)
[2021-10-30] MEDS ORDERED: Cholecalciferol 1,000 UNITS (25 MCG) TAB PO SCH (09:00)
[2021-10-30] MEDS ORDERED: Lisinopril 20 MG TAB PO SCH (09:00)
[2021-10-30] MEDS ORDERED: Aspirin 81 mg Enteric Coated Tablet PO SCH (09:00)
[2021-10-30 12:26] VITALS: BP 115/49; TEMP 98.6
[2021-10-30] MEDS ORDERED: Atorvastatin Calcium 10 MG TAB PO SCH (21:00)
[2021-10-30] MEDS ORDERED: traZODone HCl 150 MG TAB PO SCH (21:00)
[2021-10-30] MEDS ORDERED: Citalopram 20 MG TAB PO SCH (21:00)
[2021-10-30] MEDS ORDERED: Melatonin 3 MG TAB PO SCH (21:00)
== END 2021-10-30 12:58 | disposition home or self-care (01) ==
LOC: 2SW 17:00
PROVIDERS: ADMIT Internal Medicine; ATTEND Internal Medicine
DX: R07.89 Other chest pain (principal); J44.1 Chronic obstructive pulmonary disease with (acute) exacerbation; I25.10 Atherosclerotic heart disease of native coronary artery without angina pectoris; I25.2 Old myocardial infarction; J44.9 Chronic obstructive pulmonary disease, unspecified; I11.0 Hypertensive heart disease with heart failure; I50.30 Unspecified diastolic (congestive) heart failure; E78.00 Pure hypercholesterolemia, unspecified; Z20.822 Contact with and (suspected) exposure to COVID-19; G47.33 Obstructive sleep apnea (adult) (pediatric); R73.03 Prediabetes; R73.9 Hyperglycemia, unspecified; E87.6 Hypokalemia; F17.210 Nicotine dependence, cigarettes, uncomplicated; Z79.82 Long term (current) use of aspirin; Z79.899 Other long term (current) drug therapy; Z88.1 Allergy status to other antibiotic agents; Z95.1 Presence of aortocoronary bypass graft
CPT/HCPCS: 0240U; 80048; 81001; 82962; 83036; 83735; 84484 ×3; 85025; 85610; 85730; 93005; 93306; 94640 ×2; 96374; 96376; G0378 ×2; 36415; 36416; 93010; J1940; J7512; J7611

== ENCOUNTER 2022-01-24 17:40 | Observation (INO) | payer MEDICARE, MEDICAID ==
[2022-01-24 18:36] LABS: Bilirubin Negative (Negative); Blood, Urine Negative (Negative); Clarity Clear (Clear); Glucose, Urine (Dipstick) Normal (Negative); Ketone, Urine Negative (Negative); Leukocyte Negative Leu/uL (Negative); Nitrite Negative (Negative); Protein, Urine (Dipstick) Negative (Neg-Trace); Specific Gravity, Urine 1.005 (1.002-1.036); Urobilinogen Normal mg/dL (Less than 2); pH, Urine 5.5 (5.0-9.0)
[2022-01-24 18:37] LABS: Hemoglobin 12.2 g/dL (12.0-16.0); Mean Corpuscular HGB CONC 33.1 g/dL (32.0-36.0); Mean Corpuscular Hemoglobin 32.2 pg (27.0-31.0); Mean Corpuscular Volume 97.3 fL (78.0-98.0); Mean Platelet Volume 8.3 fL (7.4-10.4); Platelet Count 165 thou/uL (130-400); RBC Distribution Width 12.3 % (11.5-14.5); Red Blood Cell (RBC) Count 3.78 mill/uL (4.20-5.40); White Blood Cell (WBC) Count 3.5 thou/uL (4.8-10.8)
[2022-01-24 18:53] LABS: ALT (SGPT) 12 U/L (8-55); AST (SGOT) 20 U/L (5-34); Albumin 3.7 g/dL (3.5-5.0); Alkaline Phosphatase 123 U/L (40-110); Anion Gap 12 mmol/L (10-20); BUN (Urea Nitrogen) 25 mg/dL (9.8-20.1); Bilirubin, Total 0.3 mg/dL (0.2-1.2); Calc. Creatinine Clearance 0 mL/min (70-130); Calcium 9.1 mg/dL (7.8-10.44); Carbon Dioxide 28 mmol/L (22-29); Chloride 100 mmol/L (98-107); Globulin 1.9 g/dL (2.4-3.5); Glucose 100 mg/dL (70-105); Potassium 3.6 mmol/L (3.5-5.1); Protein, Total 5.6 g/dL (6.0-8.3); Sodium 136 mmol/L (136-145)
[2022-01-24 19:05] LABS: Eosinophils 2 % (0-10); Lymphocytes 23 % (21-51); MDiff Complete? YES; Monocytes 12 % (0-10); Neutrophil 55 % (42-75); Platelet Morphology Comment Appears Adequate; Polychromasia SLIGHT = 2-3 cells (100X) (0-2/hpf); Reactive Lymphocytes 7 % (0-10)
[2022-01-24 21:48] LABS: SARS-CoV-2 NAA Rapid Test Not Detected (NotDetected)
[2022-01-24 22:41] LABS: Cardiac Risk 2.8 (Less than 4.5); Cholesterol 122 mg/dl (< 200 Desired); HDL Cholesterol 43 mg/dL (>60 Neg Risk); LDL Cholesterol, Calculated 63 mg/dL; Phosphorus 4.5 mg/dL (2.3-4.7); Triglycerides 79 mg/dL (Less than 150)
[2022-01-25] MEDS ORDERED: Acetaminophen 500 MG TAB ONE (01:25)
[2022-01-25 01:30] LABS: Troponin I Less than 0.010 ng/mL (< 0.028)
[2022-01-25] MEDS ORDERED: Furosemide 20 MG TAB PO PRN (01:57)
[2022-01-25] MEDS: Lactated Ringer's 500 ML IV SCH ×2 (02:10→02:16)
[2022-01-25] MEDS ORDERED: Albuterol Sulfate 2.5 mg/3 ml Neb NEB PRN (02:17)
[2022-01-25 05:03] LABS: ALT (SGPT) 10 U/L (8-55); AST (SGOT) 15 U/L (5-34); Albumin 3.2 g/dL (3.5-5.0); Alkaline Phosphatase 103 U/L (40-110); Anion Gap 9 mmol/L (10-20); BUN (Urea Nitrogen) 23 mg/dL (9.8-20.1); Bilirubin, Total 0.2 mg/dL (0.2-1.2); Calc. Creatinine Clearance 66 mL/min (70-130); Calcium 8.8 mg/dL (7.8-10.44); Carbon Dioxide 28 mmol/L (22-29); Chloride 105 mmol/L (98-107); Globulin 2.1 g/dL (2.4-3.5); Glucose 98 mg/dL (70-105); Potassium 3.8 mmol/L (3.5-5.1); Protein, Total 5.3 g/dL (6.0-8.3); Sodium 138 mmol/L (136-145)
[2022-01-25 05:21] LABS: Free T4 (Free Thyroxine) 0.97 ng/dL (0.70-1.48)
[2022-01-25 05:23] LABS: Eosinophils 3 % (0-10); Hemoglobin 11.1 g/dL (12.0-16.0); Lymphocytes 33 % (21-51); MDiff Complete? YES; Mean Corpuscular HGB CONC 31.8 g/dL (32.0-36.0); Mean Corpuscular Hemoglobin 31.4 pg (27.0-31.0); Mean Corpuscular Volume 98.8 fL (78.0-98.0); Mean Platelet Volume 8.2 fL (7.4-10.4); Monocytes 12 % (0-10); Neutrophil 51 % (42-75); Platelet Count 153 thou/uL (130-400); RBC Distribution Width 12.4 % (11.5-14.5); Red Blood Cell (RBC) Count 3.54 mill/uL (4.20-5.40); White Blood Cell (WBC) Count 2.8 thou/uL (4.8-10.8)
[2022-01-25 06:44] LABS: Reticulocyte Count 1.3 % (0.5-1.5)
[2022-01-25 06:55] LABS: Iron 64 ug/dL (50-170); Iron Binding Capacity, Total 308 mcg/dL (265-497)
[2022-01-25 07:21] LABS: Ferritin 48.02 ng/mL (10-291)
[2022-01-25 08:21] LABS: Amphetamine Not Detected (NotDetected); Barbiturates Screen Not Detected (NotDetected); Benzodiazepine Screen Detected (NotDetected); Cocaine Metabolite Screen Not Detected (NotDetected); Methadone Not Detected (NotDetected); Methamphetamine Not Detected (NotDetected); Opiate Screen Not Detected (NotDetected); Oxycodone Screen Not Detected (NotDetected); Phencyclidine (PCP) Not Detected (NotDetected); THC/Cannabinoid Screen Not Detected (NotDetected); Tricyclic Screen Not Detected (NotDetected)
[2022-01-25 08:29] LABS: Creatinine, Urine 140.5 mg/dL (47-110)
[2022-01-25] MEDS ORDERED: Regadenoson 0.4 MG/5 ML SYRINGE ONE (08:46)
[2022-01-25] MEDS ORDERED: Lisinopril 20 MG TAB PO SCH (11:45)
[2022-01-25] MEDS: Mometasone 200 MCG/Formoterol 5 MCG 120 PUFF INHALER INH SCH ×3 (13:33→22:34)
[2022-01-25] MEDS: Gabapentin 300 MG CAP PO SCH ×2 (14:25→20:31)
[2022-01-25 14:26] VITALS: BMI 45.7
[2022-01-25] MEDS: Aspirin 81 mg Enteric Coated Tablet PO SCH (14:26)
[2022-01-25] MEDS: Cholecalciferol 1,000 UNITS (25 MCG) TAB PO SCH (14:26)
[2022-01-25] MEDS: Enoxaparin Sodium 40 MG/0.4 ML SYRINGE SC SCH (14:26)
[2022-01-25] MEDS ORDERED: Acetaminophen 325 MG TAB PO PRN (16:42)
[2022-01-25] MEDS ORDERED: Acetaminophen 325 MG TAB PO SCH (16:45)
[2022-01-25] MEDS: Lisinopril 20 MG TAB PO SCH (20:31)
[2022-01-25] MEDS ORDERED: Citalopram 20 MG TAB PO SCH (21:00)
[2022-01-25] MEDS ORDERED: Atorvastatin Calcium 20 MG TAB PO SCH (21:00)
[2022-01-25] MEDS ORDERED: traZODone HCl 150 MG TAB PO SCH (21:00)
[2022-01-26 03:21] VITALS: TEMP 98.1
[2022-01-26 05:40] LABS: Eosinophils 1 % (0-10); Hemoglobin 11.7 g/dL (12.0-16.0); Lymphocytes 49 % (21-51); MDiff Complete? YES; Mean Corpuscular HGB CONC 32.2 g/dL (32.0-36.0); Mean Corpuscular Hemoglobin 31.6 pg (27.0-31.0); Mean Corpuscular Volume 98.3 fL (78.0-98.0); Mean Platelet Volume 8.8 fL (7.4-10.4); Monocytes 10 % (0-10); Neutrophil 38 % (42-75); Platelet Count 148 thou/uL (130-400); Platelet Morphology Comment Appears Adequate; RBC Distribution Width 12.3 % (11.5-14.5); RBC Morphology Normal; Red Blood Cell (RBC) Count 3.69 mill/uL (4.20-5.40); White Blood Cell (WBC) Count 2.6 thou/uL (4.8-10.8)
[2022-01-26 05:42] LABS: ALT (SGPT) 9 U/L (8-55); AST (SGOT) 15 U/L (5-34); Albumin 3.2 g/dL (3.5-5.0); Alkaline Phosphatase 102 U/L (40-110); Anion Gap 13 mmol/L (10-20); BUN (Urea Nitrogen) 19 mg/dL (9.8-20.1); Bilirubin, Total 0.3 mg/dL (0.2-1.2); Calc. Creatinine Clearance 93 mL/min (70-130); Calcium 9.1 mg/dL (7.8-10.44); Carbon Dioxide 26 mmol/L (22-29); Chloride 108 mmol/L (98-107); Globulin 2.1 g/dL (2.4-3.5); Glucose 88 mg/dL (70-105); Potassium 3.8 mmol/L (3.5-5.1); Protein, Total 5.3 g/dL (6.0-8.3); Sodium 143 mmol/L (136-145)
[2022-01-26] MEDS: Mometasone 200 MCG/Formoterol 5 MCG 120 PUFF INHALER INH SCH (06:45)
[2022-01-26] MEDS: Gabapentin 300 MG CAP PO SCH (10:38)
[2022-01-26] MEDS: Aspirin 81 mg Enteric Coated Tablet PO SCH (10:38)
[2022-01-26] MEDS: Cholecalciferol 1,000 UNITS (25 MCG) TAB PO SCH (10:38)
[2022-01-26] MEDS: Lisinopril 20 MG TAB PO SCH (10:38)
[2022-01-26] MEDS: Enoxaparin Sodium 40 MG/0.4 ML SYRINGE SC SCH (10:39)
[2022-01-26 13:38] LABS: Hematocrit 36.5 % (34.0-46.6); RBC Folate Test Component 912 ng/mL (>498)
[2022-01-26 13:56] VITALS: BP 160/70
== END 2022-01-26 13:58 | disposition home or self-care (01) ==
LOC: ERS 17:40 → 2SW 19:46 → ERHOLD 19:50 → 2SW 01-25 13:20
PROVIDERS: ADMIT Student in an Organized Health Care Education/Training Program; ATTEND Student in an Organized Health Care Education/Training Program
DX: I16.0 Hypertensive urgency (principal); R07.89 Other chest pain; I25.10 Atherosclerotic heart disease of native coronary artery without angina pectoris; I13.0 Hypertensive heart and chronic kidney disease with heart failure and stage 1 through stage 4 chronic kidney disease, or unspecified chronic kidney disease; N18.30 Chronic kidney disease, stage 3 unspecified; I50.30 Unspecified diastolic (congestive) heart failure; N17.9 Acute kidney failure, unspecified; E05.90 Thyrotoxicosis, unspecified without thyrotoxic crisis or storm; D70.9 Neutropenia, unspecified; G47.33 Obstructive sleep apnea (adult) (pediatric); F17.210 Nicotine dependence, cigarettes, uncomplicated; I25.2 Old myocardial infarction; E78.5 Hyperlipidemia, unspecified; J44.9 Chronic obstructive pulmonary disease, unspecified; I95.9 Hypotension, unspecified; M16.0 Bilateral primary osteoarthritis of hip; M17.12 Unilateral primary osteoarthritis, left knee; F41.9 Anxiety disorder, unspecified; F32.9 Major depressive disorder, single episode, unspecified; F43.10 Post-traumatic stress disorder, unspecified; I70.0 Atherosclerosis of aorta; F12.10 Cannabis abuse, uncomplicated; D53.9 Nutritional anemia, unspecified; E46 Unspecified protein-calorie malnutrition; E66.9 Obesity, unspecified; Z68.42 Body mass index [BMI] 45.0-49.9, adult; Z63.4 Disappearance and death of family member; Z79.82 Long term (current) use of aspirin; Z79.899 Other long term (current) drug therapy; Z88.1 Allergy status to other antibiotic agents; Z91.048 Other nonmedicinal substance allergy status; Z95.5 Presence of coronary angioplasty implant and graft; Z96.651 Presence of right artificial knee joint; Z20.822 Contact with and (suspected) exposure to COVID-19
CPT/HCPCS: 71045; 78452; 80053 ×2; 80061; 80306; 81003; 82570; 82607; 82728; 82746; 82747; 83036; 83540; 83550; 83735; 84100; 84300; 84439; 84481; 84484 ×2; 85014; 85025 ×2; 85046; 93005; 93017; 94640 ×2; 96372; 99285; A9500; G0378 ×4; U0002; 36415; 84443; J1650; J2785; J7120

== ENCOUNTER 2022-03-14 17:00 | Outpatient (CLI) | payer MEDICARE, MEDICAID | END 2022-03-14 17:01 | disposition home or self-care (01) | LOC: SLEEPLAB 17:00 | PROVIDERS: ATTEND Family Medicine | DX: G47.33 Obstructive sleep apnea (adult) (pediatric) (principal); R06.89 Other abnormalities of breathing; F32.A Depression, unspecified; I10 Essential (primary) hypertension; I25.10 Atherosclerotic heart disease of native coronary artery without angina pectoris; R09.02 Hypoxemia | CPT/HCPCS: 95800 ==

== ENCOUNTER 2022-04-11 19:00 | Outpatient (CLI) | payer MEDICARE, MEDICAID | END 2022-04-11 19:01 | disposition home or self-care (01) | LOC: SLEEPLAB 19:00 | PROVIDERS: ATTEND Family Medicine | DX: G47.33 Obstructive sleep apnea (adult) (pediatric) (principal); R53.83 Other fatigue; I25.10 Atherosclerotic heart disease of native coronary artery without angina pectoris; J44.9 Chronic obstructive pulmonary disease, unspecified; I10 Essential (primary) hypertension; G47.10 Hypersomnia, unspecified; K21.9 Gastro-esophageal reflux disease without esophagitis; F32.9 Major depressive disorder, single episode, unspecified; R09.02 Hypoxemia; E66.9 Obesity, unspecified; Z68.41 Body mass index [BMI] 40.0-44.9, adult | CPT/HCPCS: 95811 ==

== ENCOUNTER 2023-01-27 14:00 | Emergency (ER) | payer MEDICARE, MEDICAID ==
[2023-01-27 15:21] LABS: Hemoglobin 12.7 g/dL (12.0-16.0); Mean Corpuscular HGB CONC 32.1 g/dL (32.0-36.0); Mean Corpuscular Hemoglobin 31.2 pg (27.0-31.0); Mean Corpuscular Volume 97.1 fl (78.0-98.0); Mean Platelet Volume 7.7 fL (7.4-10.4); Platelet Count 197 10x3/uL (130-400); RBC Distribution Width 13.1 % (11.5-14.5); Red Blood Cell (RBC) Count 4.07 mill/uL (4.20-5.40); White Blood Cell (WBC) Count 5.1 10x3/uL (4.8-10.8)
[2023-01-27 15:36] LABS: Band 3 % (5-11); Eosinophils 1 % (0-10); Lymphocytes 15 % (21-51); MDiff Complete? YES; Monocytes 13 % (0-10); Neutrophil 68 % (42-75); Platelet Morphology Comment Appears Adequate; RBC Morphology Normal
[2023-01-27 15:44] LABS: ALT (SGPT) 9 U/L (8-55); AST (SGOT) 14 U/L (5-34); Albumin 4.1 g/dL (3.4-4.8); Alkaline Phosphatase 122 U/L (40-110); Anion Gap 13 mmol/L (10-20); BUN (Urea Nitrogen) 15 mg/dL (9.8-20.1); Bilirubin, Total 0.7 mg/dL (0.2-1.2); Calc. Creatinine Clearance 0 mL/min (70-130); Carbon Dioxide 31 mmol/L (23-31); Chloride 98 mmol/L (98-107); Estimated GFR 63; Globulin 2.1 g/dL (2.4-3.5); Glucose 142 mg/dL (80-115); Lipase 13 U/L (8-78); Magnesium 1.7 mg/dL (1.6-2.6); Protein, Total 6.2 g/dL (5.8-8.1); Sodium 139 mmol/L (136-145)
[2023-01-27] MEDS ORDERED: methylPREDNISolone Sod Succ/PF 125 MG/2 ML VIAL ONE (16:42)
[2023-01-27 17:40] LABS: SARS-CoV-2 NAA Rapid Test Not Detected (NotDetected)
[2023-01-27] MEDS ORDERED: Potassium Chloride 20 MEQ TAB ONE (17:49)
== END 2023-01-27 17:57 | disposition home or self-care (01) ==
LOC: ERS 14:00
DX: J45.901 Unspecified asthma with (acute) exacerbation (principal); E87.6 Hypokalemia; Z20.822 Contact with and (suspected) exposure to COVID-19; K21.9 Gastro-esophageal reflux disease without esophagitis; I12.9 Hypertensive chronic kidney disease with stage 1 through stage 4 chronic kidney disease, or unspecified chronic kidney disease; N18.30 Chronic kidney disease, stage 3 unspecified; E78.5 Hyperlipidemia, unspecified; J44.9 Chronic obstructive pulmonary disease, unspecified; F17.210 Nicotine dependence, cigarettes, uncomplicated; Z79.899 Other long term (current) drug therapy; Z79.82 Long term (current) use of aspirin
CPT/HCPCS: 0240U; 71045; 80053; 83690; 83735; 83880; 84484; 85025; 93005; 36415; 96374; J2930